=== PATIENT | female | born 1935 | race Caucasian/White ===

== ENCOUNTER → 2017-08-11 | Outpatient (CLI) | payer OTHER ==
[~2017-08-11] MED LIST: AMLO-110 PO; CALCTAB7 PO; CETI10TA10 PO; DIGO0.122 PO; FLUO20CA34 PO; FURO20TA PO; LANS30CA63 PO; LORA-741 PO; METO-551 PO; NTRGSL/4 SL; RIVA1.5T PO; TRIA3AER NAE
--- NOTE | 2017-08-11 14:27 | MAMMOGRAPHY REPORT ---
BILATERAL DIGITAL SCREENING MAMMOGRAM WITH CAD: 08/11/2017 TECHNIQUE: Current study was also evaluated with a Computer Aided Detection (CAD) system. Bilateral CC and MLO views were obtained. COMPARISON: Comparison is made to exams dated: 08/09/2016 mammogram, 08/06/2015 mammogram, 08/05/2014 mammogram, 08/02/2013 mammogram, 07/31/2012 mammogram, and 07/28/2011 mammogram - [facility]. BREAST COMPOSITION: There are scattered areas of fibroglandular density in both breasts. FINDINGS: No suspicious masses, calcifications, or areas of architectural distortion are noted in ei ther breast. There has been no significant interval change compared to prior exams. Bilateral benign -appearing calcifications are not significantly changed. Bilateral nodular asymmetries are stable co mpared to prior exams. IMPRESSION: ACR BI-RADS CATEGORY 2: BENIGN There is no mammographic evidence of malignancy. A 1 year screening mammogram is recommended. The pa tient will receive written notification of the results. Approximately 10% of breast cancers are not detected with mammography. A negative mammographic report should not delay biopsy if a clinically suggestive mass is present. Lety Hameed M.D. ah/:08/11/2017 14:10:02 [employer] D[employer] Developer: Danielle RODRÍGUEZ(Chad)(M), [facility] letter sent: Normal 1/2 BI-RADS Code: ACR BI-RADS Category 2: Benign
== END | disposition home or self-care (01) ==
LOC: C.MAMM 12:18
DX: Z12.31 Encounter for screening mammogram for malignant neoplasm of breast (principal)

== ENCOUNTER 2017-11-24 17:39 | Inpatient (IN) | payer OTHER ==
[~2017-11-24] VITALS: Ht 168.9 cm; Wt 69.6 kg
--- NOTE | 2017-11-24 18:14 | DIAGNOSTIC IMAGING REPORT ---
CHEST ONE VIEW PORTABLE CLINICAL HISTORY: EVALUATE WEAKNESS COMPARISON STUDY: Chest radiograph August 14, 2012. FINDINGS: Lung volumes are normal. Mild cardiomegaly is noted without evidence for pulmonary edema. A suspected large hiatal hernia is noted. This likely accounts for left basilar opacity. The appearance is similar to exam of August 14, 2012. There is no pneumothorax. Blunting of the left costophrenic angle is unchanged. IMPRESSION: 1. No change in appearance of the chest. 2. Large hiatal hernia which likely accounts for left basilar opacity. The appearance is similar to exam of August 14, 2012. Electronically signed by: Wenceslao Shaikh M.D. 11/24/2017 6:12 PM Dictated Date/Time: 11/24/2017 6:10 PM
[2017-11-24 19:15] LABS: BASO % 0.2 %; BASO ABS # 0.01 K/uL (0-0.2); HEMOGLOBIN 16.2 g/dL (12.0-16.0); IG# 0.01 K/uL (0.00-0.02); LYMPH % 18.6 %; LYMPH ABS # 1.01 K/uL (1.2-3.4); MEAN CELL VOLUME 93.6 fL (80-100); MEAN CORPUSCULAR HEMOGLOBIN 33.7 pg (25-34); MEAN PLATELET VOLUME 10.2 fL (7.4-10.4); MONO % 13.6 %; MONO ABS # 0.74 K/uL (0.11-0.59); NEUT % 67.4 %; NEUT ABS # 3.66 K/uL (1.4-6.5); PLATELET COUNT 147 K/uL (130-400); RED CELL DISTRIBUTION WIDTH SD 48.1 fL (36.4-46.3); WHITE BLOOD COUNT 5.43 K/uL (4.8-10.8)
--- NOTE | 2017-11-24 19:18 | DIAGNOSTIC IMAGING REPORT ---
HEAD WITHOUT CONTRAST (CT) CLINICAL HISTORY: 82 years-old Female presenting with altered mental status.. TECHNIQUE: Multidetector CT imaging of the head was performed without the use of intravenous contrast. IV contrast: None. A dose lowering technique was used consistent with the principles of ALARA (as low as reasonably achievable). COMPARISON: None. CT DOSE (mGy.cm): The estimated cumulative dose is 601.98 mGy.cm. FINDINGS: Account Assistant topogram: Unremarkable. Proportional ventricular and sulcal prominence, likely age-related parenchymal volume loss. Periventricular and subcortical white matter hypoattenuation, nonspecific but likely indicative of chronic small vessel ischemic change. Cystic encephalomalacia and gliosis in the left frontal lobe (series 2 image 13), suggesting prior infarct. Additional chronic infarct noted in the paramedian left frontal lobe (series 2 image 17). No mass effect or midline shift. No hemorrhage or acute territorial infarct. No extra-axial fluid collection. Paranasal sinuses and mastoid air cells clear. Calvarium intact. IMPRESSION: 1. Chronic small vessel ischemic change. No acute intracranial abnormality. 2. 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 Electronically signed by: Nemesio Roy M.D. 11/24/2017 7:17 PM Dictated Date/Time: 11/24/2017 7:15 PM
[2017-11-24 19:30] LABS: INR 1.2 (0.9-1.1); PTT PATIENT 31.7 SECONDS (21.0-31.0)
[2017-11-24 19:32] LABS: ALBUMIN 3.4 gm/dl (3.4-5.0); ALT/SGPT 27 U/L (12-78); AST/SGOT 25 U/L (15-37); BLOOD UREA NITROGEN 18 mg/dl (7-18); CALCIUM 8.7 mg/dl (8.5-10.1); CARBON DIOXIDE 26 mmol/L (21-32); CREATININE 0.97 mg/dl (0.60-1.20); GLUCOSE 139 mg/dl (70-99); LIPASE 123 U/L (73-393); POTASSIUM 2.8 mmol/L (3.5-5.1); SODIUM 130 mmol/L (136-145)
[2017-11-24 19:43] LABS: ALKALINE PHOSPHATASE 86 U/L (45-117); TOTAL PROTEIN 7.3 gm/dl (6.4-8.2)
[2017-11-24] MEDS ORDERED: BENZ100C84 PO (20:22)
[2017-11-24] MEDS ORDERED: DOXY100C76 PO (20:22)
[2017-11-24] MEDS ORDERED: LORAZEPAM 0.5 MG TAB PO PRN (21:30)
[2017-11-24] MEDS ORDERED: ONDANSETRON INJ 2 MG/ML 2 ML VIAL IV PRN (21:30)
[2017-11-24] MEDS ORDERED: NITROGLYCERIN 0.4 MG SL PER TAB CHARGE SL PRN ×2 (21:30)
[2017-11-24] MEDS ORDERED: ALUMINUM/MAGNESIUM/SIMETH (MAALOX MAX) 30 ML UDC PO PRN (21:30)
[2017-11-24] MEDS ORDERED: POLYETHYLENE (MIRALAX) 17 GM PACK PO PRN (21:30)
[2017-11-24] MEDS ORDERED: ZOLPIDEM TARTRATE 5 MG TAB PO PRN ×2 (21:30)
[2017-11-24] MEDS ORDERED: ACETAMINOPHEN 325 MG TAB PO PRN (21:30)
[2017-11-24] MEDS ORDERED: MAGNESIUM HYDROXIDE SUSP 30 ML UDC PO PRN (21:30)
--- NOTE | 2017-11-24 21:34 | History and Physical ---
History & Physical Date & Time of Service: Nov 24, 2017 at 20:41 Chief Complaint: Change In Mental Status Primary Care Physician: Joanne Blas History of Present Illness Source: patient, family 82F with a PMHx of Atrial Fibrillation on Xarelto p/w change in mental status x 1 day. She is accompanied by two daughters and a granddaughter that are the chief historians. Pt lives on her own and completes all ADLs on her own including driving. Per family daughter is in touch with the pt every day - today they got a call from the patient asking for help to sort medications, when daughter arrived the meds were "all mixed up". Pt has a history of a fall onto some cinders where she sustained a laceration to her left hand. Patient was able to walk into the ER on her own but per daughter she has been more wobbly. Pt was seen in [facility] a few days ago for a cough and given Doxycycline. Pt does not contribute much to the HPI. Pt wants to go home. On review of systems pt does admit to having more urinary frequency than usual. Allergies: Penicillin but does not know reaction, daughters get rash/hives. SHx: Lives by self, daughter is a nurse with [employer] at [employer] (Dr. Vila) Past Medical/Surgical History Medical Problems: (1) Atrial fibrillation (2) Heart disease (3) Hiatal hernia (4) HTN (hypertension) (5) Kidney disease (6) Stomach problems Surgical Problems: (1) H/O: hysterectomy (2) Hx of cataract surgery Family History Cancer Heart disease Hypertension Social History Smoking Status: Never Smoker Marital Status: Immunizations History of Influenza Vaccine: Yes Influenza Vaccine Date: May 15, 2012 History of Tetanus Vaccine?: No History of Pneumococcal: Yes History of Hepatitis B Vaccine: No Allergies Coded Allergies: Ampicillin (Verified Allergy, Unknown, ., 11/24/17) NUTS (Verified Allergy, Unknown, ., 11/24/17) White Fish (Unverified Allergy, Unknown, Unknown, 11/24/17) RD added 08/15/12 to alert kitchen of food allergy. Uncoded Allergies: IMITATION CHEESE (Allergy, Mild, ANAPHYLAXIS, 01/16/15) SEAFOOD (Allergy, Unknown, ., 01/16/15) Home Medications Scheduled Amlodipine (Norvasc), 5 MG PO DAILY Benzonatate (Tessalon Perles), 1-2 CAP PO Q4 Calcium Carbonate-Vitamin D W/ (Caltrate 600 Plus), 1 TAB PO DAILY Cetirizine Hcl (Zyrtec), 10 MG PO DAILY Fluoxetine Hcl (Prozac), 20 MG PO DAILY Furosemide (Lasix), 20 MG PO DAILY Lansoprazole (Prevacid), 30 MG PO DAILY Lorazepam (Ativan), 0.5 MG PO TID PRN Metoprolol Tartrate (Lopressor), 50 MG PO BID Rivaroxaban (Xarelto), 15 MG PO DAILY Scheduled PRN Nitroglycerin (Nitrostat), 0.4 MG SL UD PRN Miscellaneous Medications Doxycycline Monohydrate (Monodox), 100 MG PO Review of Systems Constitutional: No fever, No chills ENT: No hearing loss Respiratory: + cough, No sputum, No wheezing, No shortness of breath, No dyspnea on exertion, No dyspnea at rest Cardiovascular: No chest pain Abdomen: No pain, No nausea, No vomiting, No diarrhea, No constipation Genitourinary - Female: + urinary frequency, No dysuria, No urinary urgency, No urinary incontinence Neurologic: No memory loss Psychiatric: No depression symptoms Endocrine: No fatigue Integumentary: No rash Physical Exam Vital Signs Date Time Temp Pulse Resp B/P (MAP) Pulse Ox O2 Delivery O2 Flow Rate FiO2 11/24/17 19:56 92 16 146/97 95 Room Air 11/24/17 18:55 94 16 146/84 97 Room Air 11/24/17 18:55 Room Air 11/24/17 17:51 36.3 104 20 130/85 95 Room Air General Appearance: WD/WN, no apparent distress Head: normocephalic Eyes: normal inspection, PERRL, EOMI ENT: normal ENT inspection, hearing grossly normal, pharynx normal Neck: supple, no adenopathy, thyroid normal, no JVD Respiratory/Chest: chest non-tender, lungs clear, normal breath sounds, no respiratory distress, no accessory muscle use Cardiovascular: no edema, no gallop, no JVD, no murmur, normal peripheral pulses, + irregularly irregular Abdomen/GI: normal bowel sounds, non tender, soft, no organomegaly, no pulsatile mass Back: normal inspection, no CVA tenderness, no muscle spasm Extremities/Musculoskelatal: normal inspection, no calf tenderness, no pedal edema Neurologic/Psych: peoplesoft II-XII nml as tested, no motor/sensory deficits, alert, normal mood/affect, normal reflexes, + pertinent finding (pt is oriented to year , season (winter) and place (hospital), but not city. She also cannot tell me many details of her HPI. ) Skin: normal color, warm/dry, + pertinent finding (well healing lesion on 5th digit of left hand) Diagnostics Laboratory Results Results Past 24 Hours Test 11/24/17 18:00 11/24/17 18:55 Range/Units Urine Color DK YELLOW Urine Appearance CLOUDY CLEAR Urine pH 6.5 4.5-7.5 Urine Specific [place] 1.020 1.000-1.030 Urine Protein 1+ NEG Urine Glucose (UA) NEG NEG Urine Ketones 1+ NEG Urine Occult Blood NEG NEG Urine Nitrite NEG NEG Urine Bilirubin NEG NEG Urine Urobilinogen NEG NEG Urine Leukocyte Esterase NEG NEG Urine WBC (Auto) 1-5 0-5 /hpf Urine RBC (Auto) 5-10 0-4 /hpf Urine Hyaline Casts (Auto) 1-5 0-5 /lpf Urine Epithelial Cells (Auto) >30 0-5 /lpf Urine Bacteria (Auto) 1+ NEG Urine Pathogenic Casts 0 /lpf Urine Mucus PRESENT NONE PRSENT White Blood Count 5.43 4.8-10.8 K/uL Red Blood Count 4.81 4.2-5.4 M/uL Hemoglobin 16.2 12.0-16.0 g/dL Hematocrit 45.0 37-47 % Mean Corpuscular Volume 93.6 80-100 fL Mean Corpuscular Hemoglobin 33.7 25-34 pg Mean Corpuscular Hemoglobin Concent 36.0 32-36 g/dl Platelet Count 147 130-400 K/uL Mean Platelet Volume 10.2 7.4-10.4 fL Neutrophils (%) (Auto) 67.4 % Lymphocytes (%) (Auto) 18.6 % Monocytes (%) (Auto) 13.6 % Eosinophils (%) (Auto) 0.0 % Basophils (%) (Auto) 0.2 % Neutrophils # (Auto) 3.66 1.4-6.5 K/uL Lymphocytes # (Auto) 1.01 1.2-3.4 K/uL Monocytes # (Auto) 0.74 0.11-0.59 K/uL Eosinophils # (Auto) 0.00 0-0.5 K/uL Basophils # (Auto) 0.01 0-0.2 K/uL RDW Standard Deviation 48.1 36.4-46.3 fL RDW Coefficient of Variation 14.0 11.5-14.5 % Immature Granulocyte % (Auto) 0.2 % Immature Granulocyte # (Auto) 0.01 0.00-0.02 K/uL Prothrombin Time 12.7 9.0-12.0 SECONDS Prothromb Time International Ratio 1.2 0.9-1.1 Activated Partial Thromboplast Time 31.7 21.0-31.0 SECONDS Partial Thromboplastin Ratio 1.2 Sodium Level 130 136-145 mmol/L Potassium Level 2.8 3.5-5.1 mmol/L Chloride Level 93 98-107 mmol/L Carbon Dioxide Level 26 21-32 mmol/L Anion Gap 11.0 3-11 mmol/L Blood Urea Nitrogen 18 7-18 mg/dl Creatinine 0.97 0.60-1.20 mg/dl Est Creatinine Clear Calc Drug Dose 44.3 ml/min Estimated GFR () 63.5 Estimated GFR (Non- 54.8 BUN/Creatinine Ratio 18.2 10-20 Random Glucose 139 70-99 mg/dl Calcium Level 8.7 8.5-10.1 mg/dl Magnesium Level 2.1 1.8-2.4 mg/dl Total Bilirubin 1.3 0.2-1 mg/dl Direct Bilirubin 0.3 0-0.2 mg/dl Aspartate Amino Transf (AST/SGOT) 25 15-37 U/L Alanine Aminotransferase (ALT/SGPT) 27 12-78 U/L Alkaline Phosphatase 86 45-117 U/L Troponin I < 0.015 0-0.045 ng/ml Total Protein 7.3 6.4-8.2 gm/dl Albumin 3.4 3.4-5.0 gm/dl Lipase 123 73-393 U/L Thyroid Stimulating Hormone (TSH) 0.581 0.300-4.500 uIu/ml Microbiology Results 11/24/17 Urine Culture, Received Pending Diagnostic Radiology HEAD WITHOUT CONTRAST (CT) CLINICAL HISTORY: 82 years-old Female presenting with altered mental status.. TECHNIQUE: Multidetector CT imaging of the head was performed without the use of intravenous contrast. IV contrast: None. A dose lowering technique was used consistent with the principles of ALARA (as low as reasonably achievable). COMPARISON: None. CT DOSE (mGy.cm): The estimated cumulative dose is 601.98 mGy.cm. FINDINGS: Track Greaser topogram: Unremarkable. Proportional ventricular and sulcal prominence, likely age-related parenchymal volume loss. Periventricular and subcortical white matter hypoattenuation, nonspecific but likely indicative of chronic small vessel ischemic change. Cystic encephalomalacia and gliosis in the left frontal lobe (series 2 image 13), suggesting prior infarct. Additional chronic infarct noted in the paramedian left frontal lobe (series 2 image 17). No mass effect or midline shift. No hemorrhage or acute territorial infarct. No extra-axial fluid collection. Paranasal sinuses and mastoid air cells clear. Calvarium intact. IMPRESSION: 1. Chronic small vessel ischemic change. No acute intracranial abnormality. 2. 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 CHEST ONE VIEW PORTABLE CLINICAL HISTORY: EVALUATE WEAKNESS COMPARISON STUDY: Chest radiograph August 14, 2012. FINDINGS: Lung volumes are normal. Mild cardiomegaly is noted without evidence for pulmonary edema. A suspected large hiatal hernia is noted. This likely accounts for left basilar opacity. The appearance is similar to exam of August 14, 2012. There is no pneumothorax. Blunting of the left costophrenic angle is unchanged. IMPRESSION: 1. No change in appearance of the chest. 2. Large hiatal hernia which likely accounts for left basilar opacity. The appearance is similar to exam of August 14, 2012. EKG Atrial fibrillation with a rate of 96. Incomplete right bundle branch block Left anterior fascicular block Nonspecific ST abnormality Abnormal ECG When compared with ECG of 16-AUG-2012 06:25, QRS axis Shifted left Impression Assessment and Plan 82F with a PMHx of Atrial Fibrillation on Xarelto p/w change in mental status x 1 day. DDx include CVA vs UTI. Can assume she missed her evening medications. AMS 2/2 of CVA vs UTI vs Electrolytes vs Dementia I did not appreciate any neurological deficits on exam, and lungs were CTA. She does appear to have moderate to severe dementia at baseline per daughters this makes it difficult to assess her baseline. CT Reviewed and negative. Will get MRI Head. Dopplers of the carotids. Will also get an echocardiogram Will get social studies teacher on board. Hypokalemia (2.8) Pt is on Lasix every day but not potassium, recommend potassium supplement on discharge. Given 40meq IV over 4 hours and will give 20meq BID PO for repletion. Continue to monitor. UTI c/o urinary frequency, UA likely contaminate, will send for culture. Will start Rocephin IV daily. Day #1. Atrial Fibrillation Continue home meds, likely missed day and/or evening dose of Metoprolol. c/w Lopressor 50 MG PO BID c/w Xarelto 15 MG PO DAILY Echo as above. HTN c/w Amlodipine 5mg daily. c/w Lasix 20mg PO daily (not sure if Lasix is for HTN - defer to day team). Mood c/w Prozac Insomnia 0.5mg Ativan QHS (she takes it at home regularly) Home Meds c/w Cetirizine 10mg daily. Diet: NPO except meds and IVF at 50mls/hr. --> If tests negative resume diet. Dispo: WIll likely need services, PT and OT on board. FULL CODE Resuscitation Status VTE Prophylaxis Will order VTE Prophylaxis: Yes Resident Involvement: Resident Care Provided Care Provided: Adult Hospital Medicine
[2017-11-24] MEDS ORDERED: POTASSIUM CHLORIDE 20 MEQ/15 ML UDC PO STA (21:46)
[2017-11-24] MEDS ORDERED: POTASSIUM CHLR 20 MEQ / WTR 40 MEQ in PREMIXED WATER 100 ML IV STA (21:46)
[2017-11-24] MEDS ORDERED: POTASSIUM CHLORIDE 20 MEQ/15 ML UDC ONE (22:13)
[2017-11-24] MEDS ORDERED: LORAZEPAM 2 MG/ML 1 ML VIAL IV STA (22:20)
[2017-11-25] VITALS (8 sets, daily range): BP systolic 121–148; BP diastolic 69–88; PULSE 74–105; TEMP 36.6–37.1; O2SAT 91–97; Ht 168.9 cm; Wt 69.6 kg
[2017-11-25] MEDS: SODIUM CHLORIDE 0.9% 1000ML 1,000 ML IV SCH ×2 (00:26→20:49)
[2017-11-25] MEDS ORDERED: IV FLUIDS COMPLETED PRN (00:30)
[2017-11-25] MEDS: POTASSIUM CHLR 10 MEQ / WTR 10 MEQ in PREMIXED WATER 100 ML IV SCH ×8 (01:02→14:40)
--- NOTE | 2017-11-25 01:30 | EMERGENCY ROOM VISIT NOTE ---
History Report prepared by Mayda: Diana Ureña Under the Supervision of: Dr. Abilio Corey M.D. First contact with patient: 17:56 Chief Complaint: ALTERED MENTAL STATUS Stated Complaint: CHANGE IN MENTAL STATUS History of Present Illness The patient is an 82 year old female who presents to the Emergency Room with complaints of sudden altered mental status starting today. The patient's daughter states that she has had progressive deterioration, but this is much more than normal. She states that the patient called her to have her daughter come help her with her medications because she was confused. She reports that when she arrived, the patient was out of it. She states that she did not know the date or what was going on. The patient's daughter states that the patient doesn't know what she ate today and that is unusual for her. She notes that her mother has had tremors for some time that were minor, but much more notable tonight. The daughter notes that the [place]y. She states that it was unwitnessed , but doesn't believe that she hit her head. She reports that her pinky was cleaned and steri stripped before being sent home. She states that her mother got her Tetanus at this time. The daughter also notes that the patient went to her PCP this week for a cough that started out as nausea. She reports that her mother was only eating liquids. She states that they started her on Doxycycline and Tessalon Perles. She notes that she takes Eliquis for an irregular heartbeat. Pt denies LOC, headache, fevers, chills, diaphoresis, visual changes, neck pain , chest pain, breathing difficulties, nausea, vomiting, abdominal pain, back pain, melena, hematochezia, urinary symptoms, numbness, weakness, lymphadenopathy, rash, difficulties walking, or other complaints. Source of History: patient, family Onset: today Position: other (global) Quality: other (altered mental status) Timing: other (sudden) Note: The patient's daughter complains of the patient having tremors. Review of Systems See HPI for pertinent positives and negatives. A total of ten systems were reviewed and were otherwise negative. Past Medical & Surgical Medical Problems: (1) Altered mental status (2) Atrial fibrillation (3) Heart disease (4) Hiatal hernia (5) HTN (hypertension) (6) Kidney disease (7) Stomach problems Surgical Problems: (1) H/O: hysterectomy (2) Hx of cataract surgery Family History Cancer Heart disease Hypertension Social History Smoking Status: Never Smoker Smokeless Tobacco Use: No Alcohol Use: occasionally Marital Status: Occupation Status: retired Current/Historical Medications Scheduled Amlodipine (Norvasc), 5 MG PO DAILY Benzonatate (Tessalon Perles), 1-2 CAP PO Q4 Calcium Carbonate-Vitamin D W/ (Caltrate 600 Plus), 1 TAB PO DAILY Cetirizine Hcl (Zyrtec), 10 MG PO DAILY Fluoxetine Hcl (Prozac), 20 MG PO DAILY Furosemide (Lasix), 20 MG PO DAILY Lansoprazole (Prevacid), 30 MG PO DAILY Lorazepam (Ativan), 0.5 MG PO TID PRN Metoprolol Tartrate (Lopressor), 50 MG PO BID Rivaroxaban (Xarelto), 15 MG PO DAILY Scheduled PRN Nitroglycerin (Nitrostat), 0.4 MG SL UD PRN Miscellaneous Medications Doxycycline Monohydrate (Monodox), 100 MG PO Allergies Coded Allergies: Ampicillin (Verified Allergy, Unknown, ., 11/24/17) NUTS (Verified Allergy, Unknown, ., 11/24/17) White Fish (Unverified Allergy, Unknown, Unknown, 11/24/17) RD added 08/15/12 to alert kitchen of food allergy. Uncoded Allergies: IMITATION CHEESE (Allergy, Mild, ANAPHYLAXIS, 01/16/15) SEAFOOD (Allergy, Unknown, ., 01/16/15) Physical Exam Vital Signs Date Time Temp Pulse Resp B/P (MAP) Pulse Ox O2 Delivery O2 Flow Rate FiO2 11/24/17 19:56 92 16 146/97 95 Room Air 11/24/17 18:55 94 16 146/84 97 Room Air 11/24/17 18:55 Room Air 11/24/17 17:51 36.3 104 20 130/85 95 Room Air Physical Exam GENERAL: Awake, alert, well-appearing, in no distress HENT: Normocephalic, atraumatic. Oropharynx unremarkable. EYES: Normal conjunctiva. Sclera non-icteric. NECK: Supple. No nuchal rigidity. FROM. No masses. RESPIRATORY: Clear to auscultation. No wheezes. No rales. Normal respiratory effort. CARDIAC: Normal rate. Normal rhythm. No murmurs. No rubs. Extremities warm and well perfused. Pulses equal. No JVD. GI: Soft, non-distended. No tenderness to palpation. No rebound or guarding. No masses. RECTAL: Deferred. MUSCULOSKELETAL: Atraumatic. Chest examination reveals no tenderness. The back is symmetrical on inspection without obvious abnormality. There is no CVA tenderness to palpation. No joint edema. LOWER EXTREMITIES: Calves are equal size bilaterally and non-tender. No edema. No discoloration. NEURO: Altered sensorium. Oriented to person only. No sensory or motor deficits noted. SKIN: No rash or jaundice noted. Medical Decision & Procedures ER Provider Diagnostic Interpretation: Radiology results as stated below per my review and radiologist interpretation: HEAD WITHOUT CONTRAST (CT) CLINICAL HISTORY: 82 years-old Female presenting with altered mental status.. TECHNIQUE: Multidetector CT imaging of the head was performed without the use of intravenous contrast. IV contrast: None. A dose lowering technique was used consistent with the principles of ALARA (as low as reasonably achievable). COMPARISON: None. CT DOSE (mGy.cm): The estimated cumulative dose is 601.98 mGy.cm. FINDINGS: [place] topogram: Unremarkable. Proportional ventricular and sulcal prominence, likely age-related parenchymal volume loss. Periventricular and subcortical white matter hypoattenuation, nonspecific but likely indicative of chronic small vessel ischemic change. Cystic encephalomalacia and gliosis in the left frontal lobe (series 2 image 13), suggesting prior infarct. Additional chronic infarct noted in the paramedian left frontal lobe (series 2 image 17). No mass effect or midline shift. No hemorrhage or acute territorial infarct. No extra-axial fluid collection. Paranasal sinuses and mastoid air cells clear. Calvarium intact. IMPRESSION: 1. Chronic small vessel ischemic change. No acute intracranial abnormality. 2. 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 Electronically signed by: Nemesio Roy M.D. 11/24/2017 7:17 PM Dictated Date/Time: 11/24/2017 7:15 PM CHEST ONE VIEW PORTABLE CLINICAL HISTORY: EVALUATE WEAKNESS COMPARISON STUDY: Chest radiograph August 14, 2012. FINDINGS: Lung volumes are normal. Mild cardiomegaly is noted without evidence for pulmonary edema. A suspected large hiatal hernia is noted. This likely accounts for left basilar opacity. The appearance is similar to exam of August 14, 2012. There is no pneumothorax. Blunting of the left costophrenic angle is unchanged. IMPRESSION: 1. No change in appearance of the chest. 2. Large hiatal hernia which likely accounts for left basilar opacity. The appearance is similar to exam of August 14, 2012. Electronically signed by: Wenceslao Shaikh M.D. 11/24/2017 6:12 PM Dictated Date/Time: 11/24/2017 6:10 PM Laboratory Results 11/24/17 18:55 Red Blood Count 4.81, Mean Corpuscular Volume 93.6, Mean Corpuscular Hemoglobin 33.7, Mean Corpuscular Hemoglobin Concent 36.0, Mean Platelet Volume 10.2, Neutrophils (%) (Auto) 67.4, Lymphocytes (%) (Auto) 18.6, Monocytes (%) (Auto) 13.6, Eosinophils (%) (Auto) 0.0, Basophils (%) (Auto) 0.2, Neutrophils # (Auto ) 3.66, Lymphocytes # (Auto) 1.01, Monocytes # (Auto) 0.74, Eosinophils # (Auto ) 0.00, Basophils # (Auto) 0.01 11/24/17 18:55 Test 11/24/17 18:00 11/24/17 18:55 Urine Color DK YELLOW Urine Appearance CLOUDY (CLEAR) Urine pH 6.5 (4.5-7.5) Urine Specific [place] 1.020 (1.000-1.030) Urine Protein 1+ (NEG) Urine Glucose (UA) NEG (NEG) Urine Ketones 1+ (NEG) Urine Occult Blood NEG (NEG) Urine Nitrite NEG (NEG) Urine Bilirubin NEG (NEG) Urine Urobilinogen NEG (NEG) Urine Leukocyte Esterase NEG (NEG) Urine WBC (Auto) 1-5 /hpf (0-5) Urine RBC (Auto) 5-10 /hpf (0-4) Urine Hyaline Casts (Auto) 1-5 /lpf (0-5) Urine Epithelial Cells (Auto) >30 /lpf (0-5) Urine Bacteria (Auto) 1+ (NEG) Urine Pathogenic Casts /lpf (0) Urine Mucus PRESENT (NONE PRSENT) White Blood Count 5.43 K/uL (4.8-10.8) Red Blood Count 4.81 M/uL (4.2-5.4) Hemoglobin 16.2 g/dL (12.0-16.0) Hematocrit 45.0 % (37-47) Mean Corpuscular Volume 93.6 fL (80-100) Mean Corpuscular Hemoglobin 33.7 pg (25-34) Mean Corpuscular Hemoglobin Concent 36.0 g/dl (32-36) Platelet Count 147 K/uL (130-400) Mean Platelet Volume 10.2 fL (7.4-10.4) Neutrophils (%) (Auto) 67.4 % Lymphocytes (%) (Auto) 18.6 % Monocytes (%) (Auto) 13.6 % Eosinophils (%) (Auto) 0.0 % Basophils (%) (Auto) 0.2 % Neutrophils # (Auto) 3.66 K/uL (1.4-6.5) Lymphocytes # (Auto) 1.01 K/uL (1.2-3.4) Monocytes # (Auto) 0.74 K/uL (0.11-0.59) Eosinophils # (Auto) 0.00 K/uL (0-0.5) Basophils # (Auto) 0.01 K/uL (0-0.2) RDW Standard Deviation 48.1 fL (36.4-46.3) RDW Coefficient of Variation 14.0 % (11.5-14.5) Immature Granulocyte % (Auto) 0.2 % Immature Granulocyte # (Auto) 0.01 K/uL (0.00-0.02) Prothrombin Time 12.7 SECONDS (9.0-12.0) Prothromb Time International Ratio 1.2 (0.9-1.1) Activated Partial Thromboplast Time 31.7 SECONDS (21.0-31.0) Partial Thromboplastin Ratio 1.2 Anion Gap 11.0 mmol/L (3-11) Est Creatinine Clear Calc Drug Dose 44.3 ml/min Estimated GFR () 63.5 Estimated GFR (Non- 54.8 BUN/Creatinine Ratio 18.2 (10-20) Calcium Level 8.7 mg/dl (8.5-10.1) Magnesium Level 2.1 mg/dl (1.8-2.4) Total Bilirubin 1.3 mg/dl (0.2-1) Direct Bilirubin 0.3 mg/dl (0-0.2) Aspartate Amino Transf (AST/SGOT) 25 U/L (15-37) Alanine Aminotransferase (ALT/SGPT) 27 U/L (12-78) Alkaline Phosphatase 86 U/L (45-117) Troponin I < 0.015 ng/ml (0-0.045) Total Protein 7.3 gm/dl (6.4-8.2) Albumin 3.4 gm/dl (3.4-5.0) Lipase 123 U/L (73-393) Thyroid Stimulating Hormone (TSH) 0.581 uIu/ml (0.300-4.500) Laboratory results reviewed by me Medications Administered Medications (Trade) Dose Ordered Sig/Rebeka Route Start Time Stop Time Status Last Admin Dose Admin Sodium Chloride 1,000 ml @ 50 mls/hr Q20H IV 11/24/17 21:23 11/26/17 13:22 11/25/17 00:26 50 MLS/HR Lorazepam (Ativan Tab) 0.5 mg BID PRN PO 11/24/17 21:30 12/24/17 21:29 11/24/17 22:16 0.5 MG ECG Per My Interpretation Indication: altered mental status Rate (beats per minute): 96 Rhythm: atrial fibrillation Findings: nonspecific-ST abn (Inferior), RBBB (incomplete), no ectopy, other ( left anterior vesicular block) ED Course 1815: The patient was evaluated in room C3. A complete history and physical exam was performed. 1922: I reevaluated the patient and she is stable. 1928: Discussed the patient's case with Dr. Sho[place] [place] The patient will be evaluated for further treatment and disposition. Medical Decision Prior records/ancillary studies reviewed and summarized above. Nursing notes reviewed and agree them. Additional history obtained from the daughter. The patient's history was concerning for altered mental status. Differential diagnosis: Etiologies such as infection, hypoglycemia, electrolyte abnormalities, cardiac sources, intracerebral event, toxicologic, neurologic, as well as others were entertained. Physical examination: As above. Nonfocal. The patient was oriented to person only ER treatment provided: IV Lock Normal saline hydration On reassessment the patient felt better. Diagnostics interpretation by me: ECG: As above no acute change. The labs revealed an unremarkable CBC and chemistry panel. Urinalysis without clear signs of infection. Imaging studies: Chest x-ray and CT scan as above. The patient is disoriented. Her diagnostic testing is unremarkable at this time. I discussed further management in the hospital and patient and daughter were in agreement. Consultation: A consultation was placed with the hospitalist. The case was discussed and diagnostics were reviewed. The patient was evaluated in the ER for further treatment. Medication Reconcilliation Current Medication List: was personally reviewed by me Blood Pressure Screening Patient's blood pressure: Elevated blood pressure Will be further evaluated by the hospitalist. Consults Time Called: 1922 Consulting Physician: Dr. Navid WOLFE Hospitalist Returned Call: 1928 Discussed the patient's case with Dr. Navid WOLFE Hospitalist. The patient will be evaluated for further treatment and disposition. Impression Primary Impression: Altered mental status Scribe Attestation The scribe's documentation has been prepared under my direction and personally reviewed by me in its entirety. I confirm that the note above accurately reflects all work, treatment, procedures, and medical decision making performed by me. Departure Information Dispostion Being Evaluated By Hospitalist Referrals Joanne Blas (PCP) Patient Instructions My [facility]
[2017-11-25] MEDS: CEFTRIAXONE SOD INJ 1 GM in DEXTROSE 5% ADD-VANTAGE 50ML 50 ML IV SCH (03:37)
--- NOTE | 2017-11-25 06:36 | DIAGNOSTIC IMAGING REPORT ---
BRAIN WITHOUT CONTRAST HISTORY: Mental status change AMS TECHNIQUE: Multiplanar multisequence MRI of the brain was performed without the use of contrast. COMPARISON STUDY: None. FINDINGS: Findings of generalized cerebellar as well as cerebral atrophy. Considerable chronic small vessel change bilaterally. Diffusion-weighted images are considered negative for an acute ischemic process. 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 IMPRESSION: 1. No acute intracranial ischemic focus. 2. Considerable cerebellar as well as cerebral atrophy. 3. Considerable chronic small vessel change involving both cerebral hemispheres as well as the cerebellar hemispheres. The above report was generated using voice recognition software. It may contain grammatical, syntax or spelling errors. Electronically signed by: Vinay Ferguson M.D. 11/25/2017 6:35 AM Dictated Date/Time: 11/25/2017 6:32 AM
--- NOTE | 2017-11-25 06:38 | DIAGNOSTIC IMAGING REPORT ---
CAROTID DOPPLER NECK ART HISTORY: Mental status change AMS COMPARISON: None. TECHNIQUE: Real-time, grayscale, and color Doppler sonography of the carotid arteries was performed. Imaging reviewed in the transverse and longitudinal planes. All measurements were calculated based on NASCET criteria. FINDINGS: Antegrade flow is seen in the bilateral vertebral arteries. The brachial pressures are hemodynamically similar. Minimal plaque formation bilaterally The peak systolic velocity within the right ICA is 50. The right systolic ratio is 1.2. The peak systolic velocity within the left ICA is 52. The left systolic ratio is 0.8. IMPRESSION: No hemodynamically significant stenosis seen within the carotid arteries. The above report was generated using voice recognition software. It may contain grammatical, syntax or spelling errors. Electronically signed by: Vinay Ferguson M.D. 11/25/2017 6:37 AM Dictated Date/Time: 11/25/2017 6:36 AM
[2017-11-25 08:13] LABS: BASO % 0.2 %; BASO ABS # 0.01 K/uL (0-0.2); HEMATOCRIT 42.4 % (37-47); IG# 0.01 K/uL (0.00-0.02); LYMPH % 27.6 %; LYMPH ABS # 1.11 K/uL (1.2-3.4); MEAN CELL VOLUME 93.6 fL (80-100); MEAN CORPUSCULAR HEMOGLOBIN 33.1 pg (25-34); MEAN CORPUSCULAR HGB CONC 35.4 g/dl (32-36); MEAN PLATELET VOLUME 10.4 fL (7.4-10.4); MONO % 20.9 %; MONO ABS # 0.84 K/uL (0.11-0.59); NEUT % 51.1 %; NEUT ABS # 2.05 K/uL (1.4-6.5); PLATELET COUNT 136 K/uL (130-400); RED CELL DISTRIBUTION WIDTH CV 13.8 % (11.5-14.5); WHITE BLOOD COUNT 4.02 K/uL (4.8-10.8)
[2017-11-25 08:31] LABS: CALCIUM 8.2 mg/dl (8.5-10.1); CREATININE 0.7 mg/dl (0.60-1.20); POTASSIUM 3.1 mmol/L (3.5-5.1)
[2017-11-25] MEDS: CALCIUM 600MG + VIT D 400 IU TAB PO SCH (08:51)
[2017-11-25] MEDS: POTASSIUM CHLORIDE 20 MEQ/15 ML UDC PO SCH ×2 (08:52→20:48)
[2017-11-25] MEDS: AMLODIPINE BESYLATE 5 MG TAB PO SCH (08:52)
[2017-11-25] MEDS: METOPROLOL TARTRATE 50 MG TAB PO SCH ×2 (08:52→20:48)
[2017-11-25] MEDS: FUROSEMIDE 20 MG TAB PO SCH (08:52)
[2017-11-25] MEDS: FLUOXETINE HCL 20 MG CAP PO SCH (08:53)
[2017-11-25] MEDS: CETIRIZINE HCL 10 MG TAB PO SCH (08:53)
[2017-11-25] MEDS: PANTOprazole SOD 40 MG TAB PO SCH (08:53)
--- NOTE | 2017-11-25 09:13 | Family Medicine Progress Note ---
Progress Note Date of Service Nov 25, 2017. Subjective Pt evaluation today including: conversation w/ patient, conversation w/ family (daughters, granddaughter) Found patient resting comfortably in bed. Wakes quickly and easily when I called her name. She volunteers no information. When asked, she knows her name , , that she is in the "hospital" but not which one. Does not know her age, location, why she is here, or other answers to basic questions. Spoke with patient's daughters and granddaughter this afternoon. They state her current mental status is very different from her baseline of being able to perform independent ADL's. 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 They say that the patient has had some mild mental decline over the past few months (perhaps) but it has not impacted her daily living. However, around this past TuesdayMar she developed a cough and some mild nausea. She was apparently seen in an urgent care and placed on doxycycline, with perhaps two days of treatment thus far. They also mention that the patient normally drinks two glasses of wine with dinner nightly, but this likely stopped in the past week due to not feeling well. Her mental status has reportedly been a little worse during this week, but it acutely worsened in the 24 hour prior to admission, and this afternoon seems even worse than ever. They do not note any focal neuro deficits, though, on their appreciation of her condition with the exception of her inability to answer questions (more of a recall question than verbal aphasia). Additional Comments: Unable to obtain due to current mental status. Medications Current Inpatient Medications Medications (Trade) Dose Ordered Sig/Rebeka Route Start Time Stop Time Status Last Admin Dose Admin Sodium Chloride 1,000 ml @ 50 mls/hr Q20H IV 11/24/17 21:23 11/26/17 13:22 11/25/17 00:26 50 MLS/HR Acetaminophen (Tylenol Tab) 650 mg Q4H PRN PO 11/24/17 21:30 12/24/17 21:29 Al Hydrox/Mg Hydrox/Simethicone (Maalox Max Susp) 15 ml Q4H PRN PO 11/24/17 21:30 12/24/17 21:29 Magnesium Hydroxide (Milk Of Magnesia Susp) 30 ml Q12H PRN PO 11/24/17 21:30 12/24/17 21:29 Zolpidem Tartrate (Ambien Tab) 5 mg HSZ PRN PO 11/24/17 21:30 12/24/17 21:29 Ondansetron HCl (Zofran Inj) 4 mg Q6H PRN IV 11/24/17 21:30 12/24/17 21:29 Nitroglycerin (Nitrostat Tab) 0.4 mg UD PRN SL 11/24/17 21:30 12/24/17 21:29 Polyethylene (Miralax Powder Packet) 17 gm DAILY PRN PO 11/24/17 21:30 12/24/17 21:29 Amlodipine Besylate (Norvasc Tab) 5 mg DAILY PO 11/25/17 09:00 12/25/17 08:59 11/25/17 08:52 5 MG Calcium/Vitamin D (Caltrate Plus Tab) 1 tab DAILY PO 11/25/17 09:00 12/25/17 08:59 11/25/17 08:51 1 TAB Cetirizine HCl (zyrTEC TAB) 10 mg DAILY PO 11/25/17 09:00 12/25/17 08:59 11/25/17 08:53 10 MG Fluoxetine HCl (Prozac Cap) 20 mg DAILY PO 11/25/17 09:00 12/25/17 08:59 11/25/17 08:53 20 MG Furosemide (Lasix Tab) 20 mg DAILY PO 11/25/17 09:00 12/25/17 08:59 11/25/17 08:52 20 MG Lorazepam (Ativan Tab) 0.5 mg BID PRN PO 11/24/17 21:30 12/24/17 21:29 11/24/17 22:16 0.5 MG Metoprolol Tartrate (Lopressor Tab) 50 mg BID PO 11/25/17 09:00 12/25/17 08:59 11/25/17 08:52 50 MG Rivaroxaban (Xarelto Tab) 15 mg QDD PO 11/25/17 16:45 12/25/17 17:59 Pantoprazole Sodium (Protonix Tab) 40 mg DAILY PO 11/25/17 09:00 12/25/17 08:59 11/25/17 08:53 40 MG Ceftriaxone Sodium 1 gm/ Dextrose 50 ml @ 100 mls/hr Q24H IV 11/25/17 01:00 12/05/17 00:59 11/25/17 03:37 100 MLS/HR Potassium Chloride (Callie Ciel Elix) 20 meq BID PO 11/25/17 09:00 12/25/17 08:59 11/25/17 08:52 20 MEQ Miscellaneous (Iv Fluids Completed) 1 ea PRN PRN N/A 11/25/17 00:30 11/25/18 00:29 Potassium Chloride 10 meq/ Prmx 100 ml @ 100 mls/hr Q1H IV 11/25/17 09:00 11/25/17 12:59 UNV Objective Vital Signs Date Time Temp Pulse Resp B/P (MAP) Pulse Ox O2 Delivery O2 Flow Rate FiO2 11/25/17 08:28 36.9 74 18 139/74 (95) 97 11/25/17 04:00 93 Room Air 11/25/17 03:46 37.1 101 18 148/84 (105) 93 Room Air 11/25/17 00:14 36.8 103 18 148/78 94 Room Air 11/24/17 22:44 95 16 127/99 97 11/24/17 22:40 95 16 127/99 97 Room Air 11/24/17 22:04 92 18 132/91 97 Room Air 11/24/17 19:56 92 16 146/97 95 Room Air 11/24/17 18:55 94 16 146/84 97 Room Air 11/24/17 18:55 Room Air 11/24/17 17:51 36.3 104 20 130/85 95 Room Air Physical Exam Notes: General Appearance: Awake, oriented to name + + "hospital" but nothing further, appears comfortable in general, in NAD. CV: +S1S2 irregularly irregular, no murmur. Pulm: Clear to auscultation throughout. Abdomen: +BS, soft, non-tender, non-distended. Extremities: No pedal edema or calf tenderness. Pulls herself up in bed at times. Neuro: Moving all extremities. Skin: Healing left fifth digit lesion. Lines: PIV. Laboratory Results 11/25/17 07:54 Red Blood Count 4.53, Mean Corpuscular Volume 93.6, Mean Corpuscular Hemoglobin 33.1, Mean Corpuscular Hemoglobin Concent 35.4, Mean Platelet Volume 10.4, Neutrophils (%) (Auto) 51.1, Lymphocytes (%) (Auto) 27.6, Monocytes (%) (Auto) 20.9, Eosinophils (%) (Auto) 0.0, Basophils (%) (Auto) 0.2, Neutrophils # (Auto ) 2.05, Lymphocytes # (Auto) 1.11, Monocytes # (Auto) 0.84, Eosinophils # (Auto ) 0.00, Basophils # (Auto) 0.01 11/25/17 07:54 Test 11/24/17 18:00 11/24/17 18:55 11/25/17 07:54 Urine Color DK YELLOW Urine Appearance CLOUDY (CLEAR) Urine pH 6.5 (4.5-7.5) Urine Specific [place] 1.020 (1.000-1.030) Urine Protein 1+ (NEG) Urine Glucose (UA) NEG (NEG) Urine Ketones 1+ (NEG) Urine Occult Blood NEG (NEG) Urine Nitrite NEG (NEG) Urine Bilirubin NEG (NEG) Urine Urobilinogen NEG (NEG) Urine Leukocyte Esterase NEG (NEG) Urine WBC (Auto) 1-5 /hpf (0-5) Urine RBC (Auto) 5-10 /hpf (0-4) Urine Hyaline Casts (Auto) 1-5 /lpf (0-5) Urine Epithelial Cells (Auto) >30 /lpf (0-5) Urine Bacteria (Auto) 1+ (NEG) Urine Pathogenic Casts /lpf (0) Urine Mucus PRESENT (NONE PRSENT) Prothrombin Time 12.7 SECONDS (9.0-12.0) Prothromb Time International Ratio 1.2 (0.9-1.1) Activated Partial Thromboplast Time 31.7 SECONDS (21.0-31.0) Partial Thromboplastin Ratio 1.2 Total Bilirubin 1.3 mg/dl (0.2-1) Direct Bilirubin 0.3 mg/dl (0-0.2) Aspartate Amino Transf (AST/SGOT) 25 U/L (15-37) Alanine Aminotransferase (ALT/SGPT) 27 U/L (12-78) Alkaline Phosphatase 86 U/L (45-117) Troponin I < 0.015 ng/ml (0-0.045) Total Protein 7.3 gm/dl (6.4-8.2) Albumin 3.4 gm/dl (3.4-5.0) Lipase 123 U/L (73-393) Thyroid Stimulating Hormone (TSH) 0.581 uIu/ml (0.300-4.500) White Blood Count 4.02 K/uL (4.8-10.8) Red Blood Count 4.53 M/uL (4.2-5.4) Hemoglobin 15.0 g/dL (12.0-16.0) Hematocrit 42.4 % (37-47) Mean Corpuscular Volume 93.6 fL (80-100) Mean Corpuscular Hemoglobin 33.1 pg (25-34) Mean Corpuscular Hemoglobin Concent 35.4 g/dl (32-36) Platelet Count 136 K/uL (130-400) Mean Platelet Volume 10.4 fL (7.4-10.4) Neutrophils (%) (Auto) 51.1 % Lymphocytes (%) (Auto) 27.6 % Monocytes (%) (Auto) 20.9 % Eosinophils (%) (Auto) 0.0 % Basophils (%) (Auto) 0.2 % Neutrophils # (Auto) 2.05 K/uL (1.4-6.5) Lymphocytes # (Auto) 1.11 K/uL (1.2-3.4) Monocytes # (Auto) 0.84 K/uL (0.11-0.59) Eosinophils # (Auto) 0.00 K/uL (0-0.5) Basophils # (Auto) 0.01 K/uL (0-0.2) RDW Standard Deviation 48.0 fL (36.4-46.3) RDW Coefficient of Variation 13.8 % (11.5-14.5) Immature Granulocyte % (Auto) 0.2 % Immature Granulocyte # (Auto) 0.01 K/uL (0.00-0.02) Anion Gap 7.0 mmol/L (3-11) Est Creatinine Clear Calc Drug Dose 60.1 ml/min Estimated GFR () 94.2 Estimated GFR (Non- 81.3 BUN/Creatinine Ratio 19.3 (10-20) Calcium Level 8.2 mg/dl (8.5-10.1) Magnesium Level 2.1 mg/dl (1.8-2.4) Assessment and Plan 82 yo female admitted on [id number] due to concerns by family members for altered mental status. PMH: Afib, HTN, "heart disease", "kidney disease", "stomach problems", hiatal hernia, s/p hysterectomy and cataract surgery. Concern for altered mental status: See discussion in HPI and subjective today. Patient does not contribute to HPI or history this morning or this afternoon. No evidence of overt focal neuro deficits on exam. There is a very fine right hand tremor that daughters say is not new. CT head and MRI brain showed multiple chronic findings, nothing acute, but of unknown duration. Carotid Doppler exam was unremarkable. EKG notable for (known) afib, incomplete RBBB and left AFB but without acute ST changes. TnI negative. She does have a dry cough in the room and a report of recently being on doxycycline for perhaps two doses. Here normal room SpO2, clear lungs on auscultation, and pCXR did not suggest acute pulmonary disease. Thus are not treating for CAP at this time. Afebrile and non-tender on abdominal exam. See "Urinalysis findings" discussion below. TSH normal. Exact nature of her suspected AMS is unclear, though perhaps the patient missed some of her scheduled medications. - Echocardiogram pending today. - Will add ammonia level and lyme for morning labs. - PT/OT consulted for expert opinion on need for acute rehab. Urinalysis findings: Question of recent urinary frequency. UA negative for WBCs but a couple RBCs and lots of epithelial cells. 1+ bacteria as well. 29Mar UCx sent. 30Mar started empirically on ceftriaxone 1 gram IV q24h. Hypokalemia: Here K 2.8. Repleted. Is on home daily lasix. Here started on KCl 20 mEq PO BID. Monitoring. - May benefit from ongoing KCl supplementation at home. Atrial fibrillation: History of same, noted on admission as well. On home lopressor 50 BID and xarelto 15 daily. Patient may have recently missed a dose. - Echocardiogram pending today. HTN: On home amlodipine 5 mg daily and lasix 20 mg daily. Depression: On home prozac 20 daily. Insomnia: On scheduled ativan 0.5 mg PO q HS as well as prn anxiety/agitation. Allergies: On home cetirizine 10 mg daily. Code status: Full code. Diet: AHA. DVT prophy: Xarelto. PT/OT: Pending evaluation. Disbo: Admit to med/surg. Resident Physician Supervision Note: I was present with Dr. Kong during the history and exam. I discussed the case with the resident and agree with the findings and plan as documented in the note. Any exceptions or clarifications are listed here: 82 y/o female admitted with mental status change in the setting of what is described as a mild URI for which she was recently started on doxycycline. The family reports that she has a history of mild dementia, but independent in terms of ADLs. Imaging (MRI and CT) show rather advanced small vessel disease and atrophy, as well as old infarcts which sounds as if the family was not aware of (no prior neuro imaging here at [facility]). Acute on chronic (mental status change on what sounds to be a more advanced dementia than realized), although unsure what the inciting event was leading to the acute change. Agree with empiric antibiotic pending cultures; she has no fever nor does she complain of a headache. Will check ammonia level and Lyme, but not highly suspicious of either being the culprit. Documented By: Vick Gramajo Resident Tracking Resident Involvement: Resident Care Provided Care Provided: Adult Hospital Medicine (inpatient)
[2017-11-25] MEDS: RIVAROXABAN TAB 15 MG TAB PO SCH (16:51)
[2017-11-25] MEDS ORDERED: LORAZEPAM 2 MG/ML 1 ML VIAL IV SCH (21:00)
[2017-11-26] MEDS: CEFTRIAXONE SOD INJ 1 GM in DEXTROSE 5% ADD-VANTAGE 50ML 50 ML IV SCH (01:14)
[2017-11-26 03:31] VITALS: BP 123/77; PULSE 98; TEMP 36.9; O2SAT 91
[2017-11-26 07:04] LABS: BASO % 0.5 %; BASO ABS # 0.03 K/uL (0-0.2); HEMATOCRIT 43.9 % (37-47); HEMOGLOBIN 15.4 g/dL (12.0-16.0); IG# 0.01 K/uL (0.00-0.02); LYMPH % 28.2 %; LYMPH ABS # 1.54 K/uL (1.2-3.4); MEAN CELL VOLUME 94.2 fL (80-100); MEAN CORPUSCULAR HGB CONC 35.1 g/dl (32-36); MEAN PLATELET VOLUME 9.9 fL (7.4-10.4); MONO ABS # 0.93 K/uL (0.11-0.59); NEUT % 54.1 %; NEUT ABS # 2.95 K/uL (1.4-6.5); PLATELET COUNT 143 K/uL (130-400); RED CELL DISTRIBUTION WIDTH SD 48.3 fL (36.4-46.3); WHITE BLOOD COUNT 5.46 K/uL (4.8-10.8)
[2017-11-26] MEDS: CALCIUM 600MG + VIT D 400 IU TAB PO SCH (07:31)
[2017-11-26] MEDS: METOPROLOL TARTRATE 50 MG TAB PO SCH ×2 (07:32→20:59)
[2017-11-26] MEDS: POTASSIUM CHLORIDE 20 MEQ/15 ML UDC PO SCH ×2 (07:32→20:58)
[2017-11-26] MEDS: PANTOprazole SOD 40 MG TAB PO SCH (07:32)
[2017-11-26] MEDS: FUROSEMIDE 20 MG TAB PO SCH (07:32)
[2017-11-26] MEDS: AMLODIPINE BESYLATE 5 MG TAB PO SCH (07:33)
[2017-11-26] MEDS: CETIRIZINE HCL 10 MG TAB PO SCH (07:33)
[2017-11-26] MEDS: FLUOXETINE HCL 20 MG CAP PO SCH (07:33)
[2017-11-26 07:34] LABS: CREATININE 0.71 mg/dl (0.60-1.20)
[2017-11-26 07:35] LABS: CALCIUM 7.9 mg/dl (8.5-10.1); POTASSIUM 3.2 mmol/L (3.5-5.1)
[2017-11-26 07:37] LABS: TOTAL PROTEIN 6.5 gm/dl (6.4-8.2)
[2017-11-26 07:51] VITALS: BP 126/74; PULSE 69; TEMP 36.8; O2SAT 97
[2017-11-26] MEDS ORDERED: POTASSIUM CHLORIDE 20 MEQ TABCR PO STA (08:56)
[2017-11-26] MEDS ORDERED: THIAMINE HCL 100 MG TAB PO ONE (11:46)
[2017-11-26 11:55] VITALS: BP 121/69; PULSE 59; TEMP 36.5; O2SAT 97
--- NOTE | 2017-11-26 15:43 | Neurology Consultation ---
Neurology Consultation Date of Consultation: Nov 26, 2017. Attending Physician: Vikc Gramajo D.O. Primary Care Physician: Joanne Blas Reason for Consultation: acute encephalopathy. History of Present Illness Source: patient, family, hospital records This is a 82-year-old female who presents for acute encephalopathy. Most of the history is given by the daughters as the patient gives only limited history and subjective findings. Daughters report that last weekend starting Tuesday she was having symptoms of nausea, upper respiratory bronchitis type symptoms and decreased appetite. She seem to be drinking well so. She did see her family physician regarding this and was put on antibiotics. Patient was also having symptoms of cough. Overall viral symptoms seemed mild and not to severe per family. They report that they check on her on a daily basis. Daughter reports that she called her Tuesday night and she seemed fine. afternoon the patient called because she was having confusion and difficulty figuring out her medications. When the daughter went to check on her she seemed acutely confused. Daughter took her to the emergency room for evaluation. She reports that later that night she got CAT scan and MRI. Patient seemed to be worse in terms of her mental status on Tuesday which could have partly been due to receiving extra dose of Ativan for the MRI. Daughters report that she seems minimally better cognitive and mental status pathak today. Daughter reports that she seems to have significant expressive aphasia since this is all happening. Does not seem to be able to get out her words. Seems confused over how to do simple things like feed herself. They report that at baseline while she had some memory loss she seemed to cover well and was still independent in her activities of daily living. They report that she was managing her own finances, managing her medications, and driving. Patient denies any recent fevers. Denies any abnormal headaches. Did have some shortness of breath with walking recently family reports that she does not tend to exercise or walk for long distances on a regular basis. Patient did have one recent fall about a week ago but otherwise family and patient denies any additional falls. Denies any ambulatory dysfunction. They have noted a slow cognitive decline over the last 1 to 2 years. No severe changes in personality or thinking. They have also for the same amount of time have noticed tremors in her bilateral hands. Daughter thinks it seems to be worse with action. Daughter also reported that she only tends to drink 2 glasses of wine per night. She goes to a specific bar and the control chemist is able to confirm that she only has 2 glasses, but reports that recently it seems like she has been becoming intoxicated with 2 glasses when before she had not. Hospital workup to date was reviewed. Ultrasound of the carotids was unremarkable MRI of the brain report and images were reviewed by myself. The patient has moderate T2 hyperintensities in the subcortical white matter bilaterally consistent with either small vessel ischemic disease or past small ischemic strokes possibly from her history of A. fib before she was treated. This all looks chronic and nothing looks acute or subacute. Mild age-related atrophy noted. Labs: CBC and complete metabolic panel were unremarkable. TSH within normal limits. Ammonia and magnesium within normal limits. Urinalysis was unremarkable. Lyme was negative. Past Medical/Surgical History A. fib on Xarelto Hypertension Depression/anxiety and insomnia Mitral valve prolapse Family History Family history significant for mother with stroke. Cancer, CAD, and hypertension within the family Social History Patient normally lives on her own is independent in her activities of daily living. There is close supervision with her children. No tobacco use. Drinks 2 glasses of wine per day although has been noted to may be become more intoxicated on that amount than she used to. No illegal drug use or supplement use Smoking Status: Never smoker Smokeless Tobacco Use: No Marital Status: Occupation Status: retired Allergies Coded Allergies: Ampicillin (Verified Allergy, Unknown, ., 11/24/17) NUTS (Verified Allergy, Unknown, ., 11/24/17) Shellfish (Verified Allergy, Unknown, HIVES, 11/25/17) White Fish (Verified Allergy, Unknown, Unknown, 11/25/17) RD added 08/15/12 to alert kitchen of food allergy. Uncoded Allergies: IMITATION CHEESE (Allergy, Mild, ANAPHYLAXIS, 01/16/15) Current Inpatient Medications Current Inpatient Medications Medications (Trade) Dose Ordered Sig/Rebeka Route Start Time Stop Time Status Last Admin Dose Admin Acetaminophen (Tylenol Tab) 650 mg Q4H PRN PO 11/24/17 21:30 12/24/17 21:29 Al Hydrox/Mg Hydrox/Simethicone (Maalox Max Susp) 15 ml Q4H PRN PO 11/24/17 21:30 12/24/17 21:29 Magnesium Hydroxide (Milk Of Magnesia Susp) 30 ml Q12H PRN PO 11/24/17 21:30 12/24/17 21:29 Zolpidem Tartrate (Ambien Tab) 5 mg HSZ PRN PO 11/24/17 21:30 12/24/17 21:29 Ondansetron HCl (Zofran Inj) 4 mg Q6H PRN IV 11/24/17 21:30 12/24/17 21:29 Nitroglycerin (Nitrostat Tab) 0.4 mg UD PRN SL 11/24/17 21:30 12/24/17 21:29 Polyethylene (Miralax Powder Packet) 17 gm DAILY PRN PO 11/24/17 21:30 12/24/17 21:29 Amlodipine Besylate (Norvasc Tab) 5 mg DAILY PO 11/25/17 09:00 12/25/17 08:59 11/26/17 07:33 5 MG Calcium/Vitamin D (Caltrate Plus Tab) 1 tab DAILY PO 11/25/17 09:00 12/25/17 08:59 11/26/17 07:31 1 TAB Cetirizine HCl (zyrTEC TAB) 10 mg DAILY PO 11/25/17 09:00 12/25/17 08:59 11/26/17 07:33 10 MG Fluoxetine HCl (Prozac Cap) 20 mg DAILY PO 11/25/17 09:00 12/25/17 08:59 11/26/17 07:33 20 MG Furosemide (Lasix Tab) 20 mg DAILY PO 11/25/17 09:00 12/25/17 08:59 11/26/17 07:32 20 MG Lorazepam (Ativan Tab) 0.5 mg BID PRN PO 11/24/17 21:30 12/24/17 21:29 11/24/17 22:16 0.5 MG Metoprolol Tartrate (Lopressor Tab) 50 mg BID PO 11/25/17 09:00 12/25/17 08:59 11/26/17 07:32 50 MG Rivaroxaban (Xarelto Tab) 15 mg QDD PO 11/25/17 16:45 12/25/17 17:59 11/25/17 16:51 15 MG Pantoprazole Sodium (Protonix Tab) 40 mg DAILY PO 11/25/17 09:00 12/25/17 08:59 11/26/17 07:32 40 MG Ceftriaxone Sodium 1 gm/ Dextrose 50 ml @ 100 mls/hr Q24H IV 11/25/17 01:00 12/05/17 00:59 11/26/17 01:14 100 MLS/HR Potassium Chloride (Callie Ciel Elix) 20 meq BID PO 11/25/17 09:00 12/25/17 08:59 11/26/17 07:32 20 MEQ Miscellaneous (Iv Fluids Completed) 1 ea PRN PRN N/A 11/25/17 00:30 11/25/18 00:29 Lorazepam (Ativan Inj) 0.5 mg HS IV 11/25/17 21:00 12/25/17 20:59 11/25/17 20:48 0.5 MG Thiamine HCl (Vitamin B-1 Tab) 100 mg QAM PO 11/27/17 09:00 12/27/17 08:59 Review of Systems Complete review of systems otherwise negative except for the above-noted in HPI Physical Exam Vital Signs (Past 24 Hrs): Date Time Temp Pulse Resp B/P (MAP) Pulse Ox O2 Delivery O2 Flow Rate FiO2 11/26/17 12:00 Room Air 11/26/17 11:55 36.5 59 16 121/69 (86) 97 11/26/17 08:00 Room Air 11/26/17 07:51 36.8 69 16 126/74 (91) 97 11/26/17 04:00 Room Air 11/26/17 03:31 36.9 98 18 123/77 (92) 91 Room Air 11/25/17 23:59 Room Air 11/25/17 23:45 37.0 105 18 121/69 (86) 91 Room Air 11/25/17 20:00 Room Air 11/25/17 18:35 36.8 96 20 141/88 (105) 91 Room Air 11/25/17 16:00 Room Air 11/25/17 15:50 36.6 81 20 131/88 (102) 92 Room Air Gen.: Patient is alert and sitting in bed, in no acute distress. HEENT: Normocephalic /atraumatic, no scleral icterus Heart: Regular rate and rhythm Extremities: No gross deformities or rashes noted Neurological examination: Mental status: Patient is alert and oriented to person and partially to place. She is able to correctly say that she is in the hospital but not which hospital.. Attention and concentration normal for the situation. Poor fund of knowledge in recent and remote memory are impaired. Patient also tends to perseverate on previous answers given. Speech is sparse but fluent without any dysarthria noted. Patient's lack of expressive language was likely secondary to overall global cognitive impairment rather than a specific aphasia Cranial nerve: Visual ho appear to be grossly intact. Funduscopic examination was unremarkable. No papilledema. Pupils equally round and reactive to light. Extraocular muscles intact without nystagmus. No facial asymmetry noted. Facial sensation intact. Tongue is midline. Good palatal elevation. Good shoulder shrug bilaterally. Hearing grossly intact to voice. Strength: 5/5 both proximal and distally in all extremities. There is no arm drift. Patient does have some mild cogwheel rigidity in the right greater than left upper extremity. Also noted to have classic pill-rolling tremor in the right hand and sometimes in the left at rest. There was some action tremors that were sometimes also seen with movement. Sensation: Grossly intact to light touch in all extremities. Deep tendon reflexes: +1 in bilateral biceps, brachioradialis and patellar. Toes were downgoing to plantar stimulation Coordination: Patient was not unable to understand instructions for finger to nose testing, but appeared to reach out and grab without any ataxic movements. Station within the bed was normal Laboratory Results Past 24 Hours: 11/26/17 06:54 Red Blood Count 4.66, Mean Corpuscular Volume 94.2, Mean Corpuscular Hemoglobin 33.0, Mean Corpuscular Hemoglobin Concent 35.1, Mean Platelet Volume 9.9, Neutrophils (%) (Auto) 54.1, Lymphocytes (%) (Auto) 28.2, Monocytes (%) (Auto) 17.0, Eosinophils (%) (Auto) 0.0, Basophils (%) (Auto) 0.5, Neutrophils # (Auto ) 2.95, Lymphocytes # (Auto) 1.54, Monocytes # (Auto) 0.93, Eosinophils # (Auto ) 0.00, Basophils # (Auto) 0.03 11/26/17 06:54 Test 11/26/17 06:54 White Blood Count 5.46 K/uL (4.8-10.8) Red Blood Count 4.66 M/uL (4.2-5.4) Hemoglobin 15.4 g/dL (12.0-16.0) Hematocrit 43.9 % (37-47) Mean Corpuscular Volume 94.2 fL (80-100) Mean Corpuscular Hemoglobin 33.0 pg (25-34) Mean Corpuscular Hemoglobin Concent 35.1 g/dl (32-36) Platelet Count 143 K/uL (130-400) Mean Platelet Volume 9.9 fL (7.4-10.4) Neutrophils (%) (Auto) 54.1 % Lymphocytes (%) (Auto) 28.2 % Monocytes (%) (Auto) 17.0 % Eosinophils (%) (Auto) 0.0 % Basophils (%) (Auto) 0.5 % Neutrophils # (Auto) 2.95 K/uL (1.4-6.5) Lymphocytes # (Auto) 1.54 K/uL (1.2-3.4) Monocytes # (Auto) 0.93 K/uL (0.11-0.59) Eosinophils # (Auto) 0.00 K/uL (0-0.5) Basophils # (Auto) 0.03 K/uL (0-0.2) RDW Standard Deviation 48.3 fL (36.4-46.3) RDW Coefficient of Variation 14.0 % (11.5-14.5) Immature Granulocyte % (Auto) 0.2 % Immature Granulocyte # (Auto) 0.01 K/uL (0.00-0.02) Anion Gap 10.0 mmol/L (3-11) Est Creatinine Clear Calc Drug Dose 59.3 ml/min Estimated GFR () 92.6 Estimated GFR (Non- 79.9 BUN/Creatinine Ratio 14.0 (10-20) Calcium Level 7.9 mg/dl (8.5-10.1) Total Bilirubin 1.2 mg/dl (0.2-1) Aspartate Amino Transf (AST/SGOT) 25 U/L (15-37) Alanine Aminotransferase (ALT/SGPT) 26 U/L (12-78) Alkaline Phosphatase 74 U/L (45-117) Ammonia 32.0 umol/L (11-32) Total Protein 6.5 gm/dl (6.4-8.2) Albumin 3.0 gm/dl (3.4-5.0) Globulin 3.5 gm/dl (2.5-4.0) Albumin/Globulin Ratio 0.9 (0.9-2) Lyme Disease IgG Antibody NEG (NEG) Lyme Disease IgM Antibody NEG (NEG) Imaging As noted above in HPI Impression This is a 82-year-old female with acute encephalopathy. More than likely acute encephalopathy is multifactorial. 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 Patient also has signs of mild Parkinson's disease on examination. There is an association with Parkinson's and a greater likelihood of developing dementia. It is unclear the etiology for her acute encephalopathy at this time. Certainly a recent illness could have contributed. In addition even though she has been on many of her medications for a long time, her tolerance or metabolism for some of her medications could have changed (which would also be consistent with family report that she seems to be now intoxicated on her 2 glasses of wine per night when this did not used to happen). Specifically her Ativan and Ambien at night could contribute to delirium. Plan At this time I do not see anything specifically on her examination that suggest an acute stroke. Daughter is concerned that potentially an acute stroke could have been missed if her MRI was done too early which is a small possibility. I think it is acceptable at this point to repeat her MRI of her brain to see if there is any acute or subacute stroke that was missed. Warned the family that given Ativan for the MRI may make her more acutely confused the next day and that this should be expected. Agree with checking B12 level and folic acid for secondary causes of cognitive decline. Recommend B12 levels above 400. In addition I have added on thiamine level. Agree with giving empiric oral thiamine for now. I have discontinued Ativan and Ambien as this can contribute to delirium. Considering the patient reportedly only takes 0.5 mg at night of Ativan, I do not think that she needs to be tapered off. I have provided an order for as needed Seroquel 25 mg twice a day as needed for agitation or severe anxiety. Discussed with family that she can follow-up in neurology clinic as an outpatient for further evaluation and treatment for Parkinson's. I do not think that she needs to be started on a Parkinson's medication as an inpatient and could complicate or confuse her recovery course trying to add on another medication at this time. In the near future the patient would probably benefit from the addition of Aricept to help slow down cognitive decline and memory loss. Could consider starting Aricept 5 mg at bedtime in the next day or 2. Thank you for allowing me to participate in this patient's care. If there is any questions or concerns, feel free to call/page me.
--- NOTE | 2017-11-26 16:01 | DIAGNOSTIC IMAGING REPORT ---
MRI OF THE BRAIN WITHOUT IV CONTRAST CLINICAL HISTORY: Change in mental status. COMPARISON STUDY: CT and MRI of the brain dated 11/24/2017. TECHNIQUE: MRI of the brain was performed utilizing various T1 and T2-weighted sequences in the axial, sagittal, and coronal planes. IV contrast was not administered for this examination. FINDINGS: Brain parenchyma: There are age-related involutional changes noting moderate subcortical and periventricular microangiopathic disease. A small focus of left frontal encephalomalacia is unchanged and consistent with a remote infarct. Chronic lacunar infarcts are present throughout both cerebellar hemispheres, in the right thalamus, in the right caudate head. There is no hemorrhage or mass effect. There is no restricted diffusion to suggest acute ischemia. Solano-white matter differentiation is preserved. No extra-axial fluid collection is seen. The cerebellar tonsils are normal in configuration. Ventricles, sulci, and cisterns: Prominent secondary to involutional change. Pituitary and sella: Unremarkable. Intracranial vasculature: Normal flow voids are maintained at the skull base. Orbits: The bony orbits are grossly intact. Orbital contents are normal in appearance noting bilateral ocular lens implants. Sinuses and mastoids: Trace mucosal thickening is seen in the right maxillary antrum. The remaining paranasal sinuses are clear, and the mastoid air cells are well pneumatized. Calvarium: Unremarkable. Cervical cord: Partially visualized cervical spinal cord is normal in morphology and signal intensity. IMPRESSION: 1. No acute intracranial abnormality and no significant change from study performed 2 days previously. 2. Senescent change and remote infarcts as above. Electronically signed by: Balta Tillman M.D. 11/26/2017 4:00 PM Dictated Date/Time: 11/26/2017 3:56 PM
[2017-11-26] MEDS: RIVAROXABAN TAB 15 MG TAB PO SCH (16:15)
--- NOTE | 2017-11-26 16:45 | Family Medicine Progress Note ---
Progress Note Date of Service Nov 26, 2017. Subjective Pt evaluation today including: conversation w/ patient, physical exam, chart review, lab review Pain: denies any pain this AM PO Intake: tolerating Voiding: incontinence (per nursing reports ) Note: Hx may not be reliable due to AMS Denies any pain this AM. Reports persistent cough. Per nursing: incontinent and frequently voiding; confused/disoriented Constitutional: No fever Respiratory: + cough Cardiovascular: No chest pain Abdomen: No pain, No nausea, No vomiting Female : + urinary frequency, + incontinence Medications Current Inpatient Medications Medications (Trade) Dose Ordered Sig/Rebeka Route Start Time Stop Time Status Last Admin Dose Admin Acetaminophen (Tylenol Tab) 650 mg Q4H PRN PO 11/24/17 21:30 12/24/17 21:29 Al Hydrox/Mg Hydrox/Simethicone (Maalox Max Susp) 15 ml Q4H PRN PO 11/24/17 21:30 12/24/17 21:29 Magnesium Hydroxide (Milk Of Magnesia Susp) 30 ml Q12H PRN PO 11/24/17 21:30 12/24/17 21:29 Ondansetron HCl (Zofran Inj) 4 mg Q6H PRN IV 11/24/17 21:30 12/24/17 21:29 Nitroglycerin (Nitrostat Tab) 0.4 mg UD PRN SL 11/24/17 21:30 12/24/17 21:29 Polyethylene (Miralax Powder Packet) 17 gm DAILY PRN PO 11/24/17 21:30 12/24/17 21:29 Amlodipine Besylate (Norvasc Tab) 5 mg DAILY PO 11/25/17 09:00 12/25/17 08:59 11/26/17 07:33 5 MG Calcium/Vitamin D (Caltrate Plus Tab) 1 tab DAILY PO 11/25/17 09:00 12/25/17 08:59 11/26/17 07:31 1 TAB Cetirizine HCl (zyrTEC TAB) 10 mg DAILY PO 11/25/17 09:00 12/25/17 08:59 11/26/17 07:33 10 MG Fluoxetine HCl (Prozac Cap) 20 mg DAILY PO 11/25/17 09:00 12/25/17 08:59 11/26/17 07:33 20 MG Furosemide (Lasix Tab) 20 mg DAILY PO 11/25/17 09:00 12/25/17 08:59 11/26/17 07:32 20 MG Metoprolol Tartrate (Lopressor Tab) 50 mg BID PO 11/25/17 09:00 12/25/17 08:59 11/26/17 07:32 50 MG Rivaroxaban (Xarelto Tab) 15 mg QDD PO 11/25/17 16:45 12/25/17 17:59 11/26/17 16:15 15 MG Pantoprazole Sodium (Protonix Tab) 40 mg DAILY PO 11/25/17 09:00 12/25/17 08:59 11/26/17 07:32 40 MG Ceftriaxone Sodium 1 gm/ Dextrose 50 ml @ 100 mls/hr Q24H IV 11/25/17 01:00 12/05/17 00:59 11/26/17 01:14 100 MLS/HR Potassium Chloride (Callie Ciel Elix) 20 meq BID PO 11/25/17 09:00 12/25/17 08:59 11/26/17 07:32 20 MEQ Miscellaneous (Iv Fluids Completed) 1 ea PRN PRN N/A 11/25/17 00:30 11/25/18 00:29 Thiamine HCl (Vitamin B-1 Tab) 100 mg QAM PO 11/27/17 09:00 12/27/17 08:59 Quetiapine Fumarate (seroQUEL TAB) 25 mg BID PRN PO 11/26/17 15:45 12/26/17 15:44 Objective Vital Signs Date Time Temp Pulse Resp B/P (MAP) Pulse Ox O2 Delivery O2 Flow Rate FiO2 11/26/17 12:00 Room Air 11/26/17 11:55 36.5 59 16 121/69 (86) 97 11/26/17 08:00 Room Air 11/26/17 07:51 36.8 69 16 126/74 (91) 97 11/26/17 04:00 Room Air 11/26/17 03:31 36.9 98 18 123/77 (92) 91 Room Air 11/25/17 23:59 Room Air 11/25/17 23:45 37.0 105 18 121/69 (86) 91 Room Air 11/25/17 20:00 Room Air 11/25/17 18:35 36.8 96 20 141/88 (105) 91 Room Air Physical Exam General Appearance: no apparent distress Eyes: normal inspection Respiratory/Chest: normal breath sounds, + crackles (RLL) Cardiovascular: regular rate, rhythm, no edema, no murmur Abdomen: normal bowel sounds, non tender, soft Extremities: non-tender, no pedal edema Neurologic/Psychiatric: alert, + pertinent finding (oriented to person only; aphasia) Laboratory Results 11/26/17 06:54 Red Blood Count 4.66, Mean Corpuscular Volume 94.2, Mean Corpuscular Hemoglobin 33.0, Mean Corpuscular Hemoglobin Concent 35.1, Mean Platelet Volume 9.9, Neutrophils (%) (Auto) 54.1, Lymphocytes (%) (Auto) 28.2, Monocytes (%) (Auto) 17.0, Eosinophils (%) (Auto) 0.0, Basophils (%) (Auto) 0.5, Neutrophils # (Auto ) 2.95, Lymphocytes # (Auto) 1.54, Monocytes # (Auto) 0.93, Eosinophils # (Auto ) 0.00, Basophils # (Auto) 0.03 11/26/17 06:54 Test 11/26/17 06:54 White Blood Count 5.46 K/uL (4.8-10.8) Red Blood Count 4.66 M/uL (4.2-5.4) Hemoglobin 15.4 g/dL (12.0-16.0) Hematocrit 43.9 % (37-47) Mean Corpuscular Volume 94.2 fL (80-100) Mean Corpuscular Hemoglobin 33.0 pg (25-34) Mean Corpuscular Hemoglobin Concent 35.1 g/dl (32-36) Platelet Count 143 K/uL (130-400) Mean Platelet Volume 9.9 fL (7.4-10.4) Neutrophils (%) (Auto) 54.1 % Lymphocytes (%) (Auto) 28.2 % Monocytes (%) (Auto) 17.0 % Eosinophils (%) (Auto) 0.0 % Basophils (%) (Auto) 0.5 % Neutrophils # (Auto) 2.95 K/uL (1.4-6.5) Lymphocytes # (Auto) 1.54 K/uL (1.2-3.4) Monocytes # (Auto) 0.93 K/uL (0.11-0.59) Eosinophils # (Auto) 0.00 K/uL (0-0.5) Basophils # (Auto) 0.03 K/uL (0-0.2) RDW Standard Deviation 48.3 fL (36.4-46.3) RDW Coefficient of Variation 14.0 % (11.5-14.5) Immature Granulocyte % (Auto) 0.2 % Immature Granulocyte # (Auto) 0.01 K/uL (0.00-0.02) Anion Gap 10.0 mmol/L (3-11) Est Creatinine Clear Calc Drug Dose 59.3 ml/min Estimated GFR () 92.6 Estimated GFR (Non- 79.9 BUN/Creatinine Ratio 14.0 (10-20) Calcium Level 7.9 mg/dl (8.5-10.1) Total Bilirubin 1.2 mg/dl (0.2-1) Aspartate Amino Transf (AST/SGOT) 25 U/L (15-37) Alanine Aminotransferase (ALT/SGPT) 26 U/L (12-78) Alkaline Phosphatase 74 U/L (45-117) Ammonia 32.0 umol/L (11-32) Total Protein 6.5 gm/dl (6.4-8.2) Albumin 3.0 gm/dl (3.4-5.0) Globulin 3.5 gm/dl (2.5-4.0) Albumin/Globulin Ratio 0.9 (0.9-2) Lyme Disease IgG Antibody NEG (NEG) Lyme Disease IgM Antibody NEG (NEG) Assessment and Plan 82 yoF admitted for altered mental status. PMH: Afib, HTN, "heart disease", "kidney disease", "stomach problems", hiatal hernia, s/p hysterectomy and cataract surgery. Concern for altered mental status: Of unknown etiology. No acute/subacute stroke. Persistent. Only oriented to person today. - Neuro on board - consistent with acute multifactorial encephalopathy (mixed Alzheimer's and vascular dementia; concern for Parkinson's tremor which can also cause dementia) - Repeat MRI unchanged - Dc Ativan and Ambien as can increase delirium - Seroquel PRN for agitation - Initial CT head and MRI brain: multiple chronic findings of unknown duration - Carotid Doppler unremarkable - TSH normal - Lyme serology negative and Ammonia level 32 Cough: dry cough with RLL crackles. Afebrile. No WBC elevation. CXR neg - Was on doxycycline prior to admission x 2 days. - On Rocephin for concern of UTI - On RA Increased urinary frequency: - UA negative for WBCs; 1+ bacteria, few RBCs and lots of epithelial cells - UCx negative - Started on empiric abx: ceftriaxone 1 gram IV q24h Hypokalemia: K 3.2 - repleted with KCL 40meq - On KCL 20meq BID - May benefit from ongoing KCl supplementation at home given on Lasix Atrial fibrillation: - Continue Lopressor 50 BID and Xarelto 15 daily - Echocardiogram pending HTN: - continue amlodipine 5 mg and Lasix 20 mg daily Depression: - Continue Prozac 20 daily Agitation/Insomnia: - Seroquel PRN - Dced Ativan and Ambien due to delirium side effects Allergies: - Continue Cetirizine 10 mg daily Code status: Full code Diet: AHA. DVT prophy: Xarelto PT/OT: Pending evaluation Disbo: Admit to med/surg Resident Physician Supervision Note: I was present with Dr. Musa during the history and exam. I discussed the case with the resident and agree with the findings and plan as documented in the note. Perhaps slight improvement today in terms of mental status, but after discussion with family today, her current status is far below her baseline. She has underlying dementia, but family notes she would "cover well" and prior to her acute decompensation, was independent for all ADLs. Agree with repeat MRI; appreciate neurology input. Documented By: Vick Gramajo Resident Involvement: Resident Care Provided Care Provided: Adult Hospital Medicine
[2017-11-26 19:31] VITALS: BP 125/65; PULSE 81; TEMP 36.5; O2SAT 95
[2017-11-26 20:00] VITALS: O2SAT 95
[2017-11-26] MEDS: QUETIAPINE FUMARATE 25 MG TAB PO PRN (21:36)
[2017-11-26 23:15] VITALS: BP 102/63; PULSE 93; TEMP 36.5; O2SAT 92
[2017-11-27] VITALS (8 sets, daily range): BP systolic 106–130; BP diastolic 65–89; PULSE 68–97; TEMP 36.4–36.8; O2SAT 91–96
[2017-11-27] MEDS: CEFTRIAXONE SOD INJ 1 GM in DEXTROSE 5% ADD-VANTAGE 50ML 50 ML IV SCH (01:17)
[2017-11-27 06:24] LABS: CREATININE 0.75 mg/dl (0.60-1.20); POTASSIUM 3.5 mmol/L (3.5-5.1)
[2017-11-27] MEDS: FUROSEMIDE 20 MG TAB PO SCH (07:33)
[2017-11-27] MEDS: CETIRIZINE HCL 10 MG TAB PO SCH (07:33)
[2017-11-27] MEDS: PANTOprazole SOD 40 MG TAB PO SCH (07:33)
[2017-11-27] MEDS: METOPROLOL TARTRATE 50 MG TAB PO SCH ×2 (07:33→20:48)
[2017-11-27] MEDS: CALCIUM 600MG + VIT D 400 IU TAB PO SCH (07:33)
[2017-11-27] MEDS: POTASSIUM CHLORIDE 20 MEQ/15 ML UDC PO SCH ×2 (07:34→20:47)
[2017-11-27] MEDS: AMLODIPINE BESYLATE 5 MG TAB PO SCH (07:34)
[2017-11-27] MEDS: FLUOXETINE HCL 20 MG CAP PO SCH (07:34)
[2017-11-27] MEDS: THIAMINE HCL 100 MG TAB PO SCH (09:59)
--- NOTE | 2017-11-27 10:53 | Neurology Progress Notes ---
Neurology Progress Note Date of Service Nov 27, 2017. Subjective The patient still significantly confused. No worsening of mentation. No additional neurological signs or symptoms at this time. Patient does not have any specific complaints. B12 level was above 1000. Folic acid was within normal limits MRI of the brain report and images were reviewed by myself and similar to previous imaging with signs of chronic old subcortical small vessel ischemic changes versus lacunar strokes. Objective Date Time Temp Pulse Resp B/P (MAP) Pulse Ox O2 Delivery O2 Flow Rate FiO2 11/27/17 08:07 Room Air 11/27/17 08:03 36.8 68 18 130/89 (103) 96 11/27/17 04:06 95 Room Air 11/27/17 03:44 36.6 83 20 124/73 (90) 91 Room Air 11/27/17 00:13 95 Room Air 11/26/17 23:15 36.5 93 20 102/63 (76) 92 Room Air 11/26/17 20:00 95 Room Air 11/26/17 19:31 36.5 81 18 125/65 (85) 95 11/26/17 16:00 Room Air 11/26/17 12:00 Room Air 11/26/17 11:55 36.5 59 16 121/69 (86) 97 Last 24 Hours Test 11/27/17 05:17 Sodium Level 137 mmol/L Potassium Level 3.5 mmol/L Chloride Level 106 mmol/L Carbon Dioxide Level 25 mmol/L Anion Gap 6.0 mmol/L Blood Urea Nitrogen 12 mg/dl Creatinine 0.75 mg/dl Est Creatinine Clear Calc Drug Dose 56.1 ml/min Estimated GFR () 86.6 Estimated GFR (Non- 74.8 BUN/Creatinine Ratio 15.7 Random Glucose 101 mg/dl Calcium Level 8.0 mg/dl Vitamin B12 Level 1725 pg/mL Folate 11.66 ng/mL Exam: Gen.: Patient is alert and sitting in bed, in no acute distress. Extremities: No gross deformities or rashes noted Neurological examination: Mental status: Patient is alert and oriented to person. Patient could not tell me where she was but correctly stated month and current president. Attention and concentration normal for the situation. Poor fund of knowledge and recent and remote memory are impaired. Patient also tends to perseverate on previous answers given. Speech is sparse but fluent without any dysarthria noted. Patient's lack of expressive language was likely secondary to overall global cognitive impairment rather than a specific aphasia Cranial nerve: Extraocular muscles intact without nystagmus. No facial asymmetry noted. Hearing grossly intact to voice. Strength: 5/5 both proximal and distally in all extremities. There is no arm drift. Patient does have some mild cogwheel rigidity in the right greater than left upper extremity. Also noted to have classic pill-rolling tremor in the right hand and sometimes in the left at rest. There was some action tremors that were sometimes also seen with movement. Station within the bed was normal Current Inpatient Medications Medications (Trade) Dose Ordered Sig/Rebeka Route Start Time Stop Time Status Last Admin Dose Admin Acetaminophen (Tylenol Tab) 650 mg Q4H PRN PO 11/24/17 21:30 12/24/17 21:29 Al Hydrox/Mg Hydrox/Simethicone (Maalox Max Susp) 15 ml Q4H PRN PO 11/24/17 21:30 12/24/17 21:29 Magnesium Hydroxide (Milk Of Magnesia Susp) 30 ml Q12H PRN PO 11/24/17 21:30 12/24/17 21:29 Ondansetron HCl (Zofran Inj) 4 mg Q6H PRN IV 11/24/17 21:30 12/24/17 21:29 Nitroglycerin (Nitrostat Tab) 0.4 mg UD PRN SL 11/24/17 21:30 12/24/17 21:29 Polyethylene (Miralax Powder Packet) 17 gm DAILY PRN PO 11/24/17 21:30 12/24/17 21:29 Amlodipine Besylate (Norvasc Tab) 5 mg DAILY PO 11/25/17 09:00 12/25/17 08:59 11/27/17 07:34 5 MG Calcium/Vitamin D (Caltrate Plus Tab) 1 tab DAILY PO 11/25/17 09:00 12/25/17 08:59 11/27/17 07:33 1 TAB Cetirizine HCl (zyrTEC TAB) 10 mg DAILY PO 11/25/17 09:00 12/25/17 08:59 11/27/17 07:33 10 MG Fluoxetine HCl (Prozac Cap) 20 mg DAILY PO 11/25/17 09:00 12/25/17 08:59 11/27/17 07:34 20 MG Furosemide (Lasix Tab) 20 mg DAILY PO 11/25/17 09:00 12/25/17 08:59 11/27/17 07:33 20 MG Metoprolol Tartrate (Lopressor Tab) 50 mg BID PO 11/25/17 09:00 12/25/17 08:59 11/27/17 07:33 50 MG Rivaroxaban (Xarelto Tab) 15 mg QDD PO 11/25/17 16:45 12/25/17 17:59 11/26/17 16:15 15 MG Pantoprazole Sodium (Protonix Tab) 40 mg DAILY PO 11/25/17 09:00 12/25/17 08:59 11/27/17 07:33 40 MG Ceftriaxone Sodium 1 gm/ Dextrose 50 ml @ 100 mls/hr Q24H IV 11/25/17 01:00 12/05/17 00:59 11/27/17 01:17 100 MLS/HR Potassium Chloride (Callie Ciel Elix) 20 meq BID PO 11/25/17 09:00 12/25/17 08:59 11/27/17 07:34 20 MEQ Miscellaneous (Iv Fluids Completed) 1 ea PRN PRN N/A 11/25/17 00:30 11/25/18 00:29 Thiamine HCl (Vitamin B-1 Tab) 100 mg QAM PO 11/27/17 09:00 12/27/17 08:59 11/27/17 09:59 100 MG Quetiapine Fumarate (seroQUEL TAB) 25 mg BID PRN PO 11/26/17 15:45 12/26/17 15:44 11/26/17 21:36 25 MG Impression This is a 82-year-old female with acute encephalopathy. Encephalopathy is likely multifactorial. 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 Patient also has signs of mild Parkinson's disease on examination. There is an association with Parkinson's and a greater likelihood of developing dementia. It is unclear the etiology for her acute encephalopathy at this time. Certainly a recent illness could have contributed. In addition even though she has been on many of her medications for a long time, her tolerance or metabolism for some of her medications could have changed and her nightly Ativan could have started to contribute to encephalopathy and delirium. Plan thiamine level pending. Agree with giving empiric oral thiamine for now. Continue to avoid medications that can cause worsening encephalopathy and delirium such as Ativan (Benadryl is also another medication that can commonly cause confusion in the elderly). Seroquel available as needed for agitation or severe anxiety. Could consider starting Aricept 5 mg at bedtime. While typically this only helps to slow down symptoms and memory loss, may have some benefit in the setting of a acute encephalopathy with underlying dementia. follow-up in neurology clinic as an outpatient in 1 month for further evaluation and treatment for Parkinson's and for cognitive reevaluation. I do not think that she needs to be started on a Parkinson's medication as an inpatient and could complicate or confuse her recovery course trying to add on too many medication at this time. No additional neurological workup recommended at this time. We will see if patient's mentation improves over time (could take days to weeks if related to meds and illness). If there is any concerns for sudden fluctuations or decompensation of cognition, could consider routine EEG in the future, but I do not think that this is needed at this time. Thank you for allowing me to participate in this patient's care. If there is any questions or concerns, feel free to call/page me. Cerebral vascular risk factor modifications and recommendations: Blood pressure recommendations 130/80-110/70 Total cholesterol goal 100- 200 and LDL goal less than 100 Hemoglobin A1c goal less than 7 Encourage cardiovascular exercise at least 3 times a week for 30 minutes.
--- NOTE | 2017-11-27 13:04 | DIAGNOSTIC IMAGING REPORT ---
TWO VIEW CHEST CLINICAL HISTORY: Right lower lobe crackles on physical examination.. FINDINGS: AP and lateral chest radiographs are compared to study dated 11/24/2017. The heart appears enlarged and there is atherosclerotic calcification of the thoracic aorta. A large hiatal hernia is noted and there is left basilar atelectasis. Chronic interstitial thickening is similar to previous. No airspace consolidation or pleural effusion is identified. A calcified granuloma is noted in the right midlung. There is no pneumothorax. The skeletal structures are osteopenic. The bony thorax appears intact. IMPRESSION: 1. Mild cardiac enlargement with no acute cardiopulmonary abnormality. 2. Large hiatal hernia. Electronically signed by: Balta Tillman M.D. 11/27/2017 1:02 PM Dictated Date/Time: 11/27/2017 1:01 PM
--- NOTE | 2017-11-27 14:48 | Family Medicine Progress Note ---
Progress Note Date of Service Nov 27, 2017. Subjective Pt evaluation today including: conversation w/ patient, physical exam, chart review, lab review Pain: denies any pain PO Intake: tolerating Voiding: no voiding problems This AM pt reports occasional cough. Able to say she is in a hospital and upon prompting able to read [facility] on the TV screen but unable to say full name. Improved speech this AM. Constitutional: No fever Respiratory: + cough, No shortness of breath Cardiovascular: No chest pain Abdomen: No pain, No nausea, No vomiting Female : No dysuria Medications Current Inpatient Medications Medications (Trade) Dose Ordered Sig/Rebeka Route Start Time Stop Time Status Last Admin Dose Admin Acetaminophen (Tylenol Tab) 650 mg Q4H PRN PO 11/24/17 21:30 12/24/17 21:29 Al Hydrox/Mg Hydrox/Simethicone (Maalox Max Susp) 15 ml Q4H PRN PO 11/24/17 21:30 12/24/17 21:29 Magnesium Hydroxide (Milk Of Magnesia Susp) 30 ml Q12H PRN PO 11/24/17 21:30 12/24/17 21:29 Ondansetron HCl (Zofran Inj) 4 mg Q6H PRN IV 11/24/17 21:30 12/24/17 21:29 Nitroglycerin (Nitrostat Tab) 0.4 mg UD PRN SL 11/24/17 21:30 12/24/17 21:29 Polyethylene (Miralax Powder Packet) 17 gm DAILY PRN PO 11/24/17 21:30 12/24/17 21:29 Amlodipine Besylate (Norvasc Tab) 5 mg DAILY PO 11/25/17 09:00 12/25/17 08:59 11/27/17 07:34 5 MG Calcium/Vitamin D (Caltrate Plus Tab) 1 tab DAILY PO 11/25/17 09:00 12/25/17 08:59 11/27/17 07:33 1 TAB Cetirizine HCl (zyrTEC TAB) 10 mg DAILY PO 11/25/17 09:00 12/25/17 08:59 11/27/17 07:33 10 MG Fluoxetine HCl (Prozac Cap) 20 mg DAILY PO 11/25/17 09:00 12/25/17 08:59 11/27/17 07:34 20 MG Furosemide (Lasix Tab) 20 mg DAILY PO 11/25/17 09:00 12/25/17 08:59 11/27/17 07:33 20 MG Metoprolol Tartrate (Lopressor Tab) 50 mg BID PO 11/25/17 09:00 12/25/17 08:59 11/27/17 07:33 50 MG Rivaroxaban (Xarelto Tab) 15 mg QDD PO 11/25/17 16:45 12/25/17 17:59 11/26/17 16:15 15 MG Pantoprazole Sodium (Protonix Tab) 40 mg DAILY PO 11/25/17 09:00 12/25/17 08:59 11/27/17 07:33 40 MG Ceftriaxone Sodium 1 gm/ Dextrose 50 ml @ 100 mls/hr Q24H IV 11/25/17 01:00 12/05/17 00:59 11/27/17 01:17 100 MLS/HR Potassium Chloride (Callie Ciel Elix) 20 meq BID PO 11/25/17 09:00 12/25/17 08:59 11/27/17 07:34 20 MEQ Miscellaneous (Iv Fluids Completed) 1 ea PRN PRN N/A 11/25/17 00:30 11/25/18 00:29 Thiamine HCl (Vitamin B-1 Tab) 100 mg QAM PO 11/27/17 09:00 12/27/17 08:59 11/27/17 09:59 100 MG Quetiapine Fumarate (seroQUEL TAB) 25 mg BID PRN PO 11/26/17 15:45 12/26/17 15:44 11/26/17 21:36 25 MG Objective Vital Signs Date Time Temp Pulse Resp B/P (MAP) Pulse Ox O2 Delivery O2 Flow Rate FiO2 11/27/17 12:41 36.5 68 20 106/65 (79) 95 11/27/17 08:07 Room Air 11/27/17 08:03 36.8 68 18 130/89 (103) 96 11/27/17 04:06 95 Room Air 11/27/17 03:44 36.6 83 20 124/73 (90) 91 Room Air 11/27/17 00:13 95 Room Air 11/26/17 23:15 36.5 93 20 102/63 (76) 92 Room Air 11/26/17 20:00 95 Room Air 11/26/17 19:31 36.5 81 18 125/65 (85) 95 11/26/17 16:00 Room Air Physical Exam General Appearance: no apparent distress Eyes: normal inspection Neck: supple Respiratory/Chest: normal breath sounds, + crackles (RLL) Cardiovascular: regular rate, rhythm Abdomen: normal bowel sounds, non tender, soft Extremities: non-tender, no pedal edema Neurologic/Psychiatric: alert, + pertinent finding (oriented x 1; improved aphasia/speech compared to yesterday) Skin: warm/dry Laboratory Results 11/27/17 05:17 Test 11/27/17 05:17 Anion Gap 6.0 mmol/L (3-11) Est Creatinine Clear Calc Drug Dose 56.1 ml/min Estimated GFR () 86.6 Estimated GFR (Non- 74.8 BUN/Creatinine Ratio 15.7 (10-20) Calcium Level 8.0 mg/dl (8.5-10.1) Vitamin B12 Level 1725 pg/mL (211-911) Folate 11.66 ng/mL (>5.38) Assessment and Plan 82 yoF admitted for persistent acute altered mental status likely multifactorial in etiology: vascular vs. Alzheimer's deficiency and Parkinson' s. PMH: Afib, HTN, "heart disease", "kidney disease", "stomach problems", hiatal hernia, s/p hysterectomy and cataract surgery. Concern for altered mental status: Of unknown etiology. No acute/subacute stroke. Persistent. Only oriented to place today. Aphasia/speech mildly improved. - Neuro on board - consistent with acute multifactorial encephalopathy (mixed Alzheimer's and vascular dementia; concern for Parkinson's tremor which can also cause dementia) - Repeat MRI unchanged - Dc Ativan and Ambien as can increase delirium - Seroquel PRN for agitation - Initial CT head and MRI brain: multiple chronic findings of unknown duration - Carotid Doppler unremarkable - TSH normal - Lyme serology negative and Ammonia level 32 - B12 1725; folate 11.6 - Thiamine level pending - On thiamine 100mg daily Cough: dry cough with RLL crackles. Afebrile. No WBC elevation. repeat CXR neg - Was on doxycycline prior to admission x 2 days. - On Rocephin for concern of UTI - On RA Increased urinary frequency: - UA negative for WBCs; 1+ bacteria, few RBCs and lots of epithelial cells - UCx negative - Started on empiric abx: ceftriaxone 1 gram IV q24h Improved Hypokalemia: K 3.5 - On KCL 20meq BID - May benefit from ongoing KCl supplementation at home given on Lasix Atrial fibrillation: - Continue Lopressor 50 BID and Xarelto 15 daily - Echocardiogram pending HTN: - continue amlodipine 5 mg and Lasix 20 mg daily Depression: - Continue Prozac 20 daily Agitation/Insomnia: - Seroquel PRN - Dced Ativan and Ambien due to delirium side effects Allergies: - Continue Cetirizine 10 mg daily Code status: Full code Diet: AHA. DVT prophy: Xarelto PT/OT: Pending evaluation Disbo: Admit to med/surg. Discharge pending determination of placement by PT/OT re-evaluation (may benefit from acute rehab) Resident Physician Supervision Note: I was present with Dr. Musa during the history and exam. I discussed the case with the resident and agree with the findings and plan as documented in the note. Similar to yesterday, slight improvement today in terms of mental status , but her current status is far below her baseline. Repeat MRI non revealing. PRIMARY IMPRESSIONS 1) Mental status change, acute on chronic, likely multifactorial (acute illness in setting of baseline dementia and perhaps early PD). 2) AFIB, on chronic anticoagulation, rate-controlled PLAN 1) PT/OT 2) Consideration for inpatient rehabilitation given acuity of her symptoms 3) Limit medications which may affect sensorium. 4) Reasonable to begin Aricept 5 mg. 5) She does not carry a diagnosis of diabetes and her glucose readings have been reasonable. An A1c in 2016 was 6.1%. Most recent ACS guidelines would suggest an A1c between 7% and 8%. Resident Involvement: Resident Care Provided Care Provided: Adult Hospital Medicine
[2017-11-27] MEDS: RIVAROXABAN TAB 15 MG TAB PO SCH (16:08)
[2017-11-27] MEDS: QUETIAPINE FUMARATE 25 MG TAB PO PRN (20:49)
[2017-11-28] VITALS (8 sets, daily range): BP systolic 118–167; BP diastolic 76–93; PULSE 73–92; TEMP 36.3–37; O2SAT 92–97
[2017-11-28] MEDS: CEFTRIAXONE SOD INJ 1 GM in DEXTROSE 5% ADD-VANTAGE 50ML 50 ML IV SCH (01:34)
[2017-11-28 06:31] LABS: CALCIUM 8.3 mg/dl (8.5-10.1); CREATININE 0.94 mg/dl (0.60-1.20); POTASSIUM 3.6 mmol/L (3.5-5.1)
--- NOTE | 2017-11-28 08:54 | Family Medicine Progress Note ---
Progress Note Date of Service Nov 28, 2017. Subjective Pt evaluation today including: conversation w/ patient Found patient at first in bed eating breakfast, later in the bedside chair eating lunch. Patient does not volunteer any information but does make eye contact as I enter the room. Will answer simple questions such as name, , in a "hospital", and that she is here because she wasn't thinking right. She was unclear on the city or date. She seemed to track some of the conversation on how she may be advised to go to acute rehab (and seemed mildly unhappy about that) but afterwards would immediately ask if she was going home tomorrow. No apparent acute medical issues. Additional Comments: Unable to obtain due to dementia (vs acute delirium). Medications Current Inpatient Medications Medications (Trade) Dose Ordered Sig/Rebeka Route Start Time Stop Time Status Last Admin Dose Admin Acetaminophen (Tylenol Tab) 650 mg Q4H PRN PO 11/24/17 21:30 12/24/17 21:29 Al Hydrox/Mg Hydrox/Simethicone (Maalox Max Susp) 15 ml Q4H PRN PO 11/24/17 21:30 12/24/17 21:29 Magnesium Hydroxide (Milk Of Magnesia Susp) 30 ml Q12H PRN PO 11/24/17 21:30 12/24/17 21:29 Ondansetron HCl (Zofran Inj) 4 mg Q6H PRN IV 11/24/17 21:30 12/24/17 21:29 Nitroglycerin (Nitrostat Tab) 0.4 mg UD PRN SL 11/24/17 21:30 12/24/17 21:29 Polyethylene (Miralax Powder Packet) 17 gm DAILY PRN PO 11/24/17 21:30 12/24/17 21:29 Amlodipine Besylate (Norvasc Tab) 5 mg DAILY PO 11/25/17 09:00 12/25/17 08:59 11/27/17 07:34 5 MG Calcium/Vitamin D (Caltrate Plus Tab) 1 tab DAILY PO 11/25/17 09:00 12/25/17 08:59 11/27/17 07:33 1 TAB Cetirizine HCl (zyrTEC TAB) 10 mg DAILY PO 11/25/17 09:00 12/25/17 08:59 11/27/17 07:33 10 MG Fluoxetine HCl (Prozac Cap) 20 mg DAILY PO 11/25/17 09:00 12/25/17 08:59 11/27/17 07:34 20 MG Furosemide (Lasix Tab) 20 mg DAILY PO 11/25/17 09:00 12/25/17 08:59 11/27/17 07:33 20 MG Metoprolol Tartrate (Lopressor Tab) 50 mg BID PO 11/25/17 09:00 12/25/17 08:59 11/27/17 20:48 50 MG Rivaroxaban (Xarelto Tab) 15 mg QDD PO 11/25/17 16:45 12/25/17 17:59 11/27/17 16:08 15 MG Pantoprazole Sodium (Protonix Tab) 40 mg DAILY PO 11/25/17 09:00 12/25/17 08:59 11/27/17 07:33 40 MG Ceftriaxone Sodium 1 gm/ Dextrose 50 ml @ 100 mls/hr Q24H IV 11/25/17 01:00 12/05/17 00:59 11/28/17 01:34 100 MLS/HR Potassium Chloride (Callie Ciel Elix) 20 meq BID PO 11/25/17 09:00 12/25/17 08:59 11/27/17 20:47 20 MEQ Miscellaneous (Iv Fluids Completed) 1 ea PRN PRN N/A 11/25/17 00:30 11/25/18 00:29 Thiamine HCl (Vitamin B-1 Tab) 100 mg QAM PO 11/27/17 09:00 12/27/17 08:59 11/27/17 09:59 100 MG Quetiapine Fumarate (seroQUEL TAB) 25 mg BID PRN PO 11/26/17 15:45 12/26/17 15:44 11/27/17 20:49 25 MG Objective Vital Signs Date Time Temp Pulse Resp B/P (MAP) Pulse Ox O2 Delivery O2 Flow Rate FiO2 11/28/17 07:34 36.4 88 20 118/79 (92) 92 Room Air 11/28/17 04:15 95 Room Air 11/28/17 03:59 37.0 73 16 124/79 (94) 94 11/28/17 00:41 95 Room Air 11/27/17 23:57 36.8 97 18 115/82 (93) 95 11/27/17 20:00 36.4 83 16 120/73 (89) 94 Room Air 11/27/17 20:00 95 Room Air 11/27/17 16:00 Room Air 11/27/17 15:51 36.5 85 16 106/71 (83) 94 Room Air 11/27/17 12:41 36.5 68 20 106/65 (79) 95 11/27/17 12:00 Room Air Physical Exam Notes: General Appearance: Awake, oriented to name + + "hospital" + roughly why she's here, but not to date or location, appears comfortable in general, in NAD. CV: +S1S2 irregularly irregular, no murmur. Pulm: Clear to auscultation throughout. Abdomen: +BS, soft, non-tender, non-distended. Extremities: No pedal edema or calf tenderness. Eating with utensils without difficulty, can walk to the bathroom with assistance. Neuro: Moving all extremities. See 'general' above. Skin: Healing left fifth digit lesion. Lines: PIV. Laboratory Results 11/28/17 05:42 Test 11/28/17 05:42 Anion Gap 9.0 mmol/L (3-11) Est Creatinine Clear Calc Drug Dose 44.8 ml/min Estimated GFR () 65.9 Estimated GFR (Non- 56.9 BUN/Creatinine Ratio 20.3 (10-20) Calcium Level 8.3 mg/dl (8.5-10.1) Assessment and Plan 82 yo female admitted on [id number] due to concerns by family members for altered mental status. PMH: Afib, HTN, "heart disease", "kidney disease", "stomach problems", hiatal hernia, s/p hysterectomy and cataract surgery. Concern for altered mental status vs worsening dementia vs acute delirium: Patient is far more alert this morning than on arrival, though still has difficulties with both short and long-term memory. No new focal neuro deficits , but does have an ongoing mild hand tremor suggestive of Parkinson disease. Multiple head imaging studies suggests chronic vascular changes with no acute process. Cardiopulmonary exam/testing has been reassuring, as is no clear sign of an active acute infectious or metabolic process. - Leading etiologies for this: (1) the patient accidentally took too much of her home medication (e.g. ativan or ambien) (2) she had an acute respiratory illness that lead to some acute delirium, or (3) suspect some level of baseline dementia (mild-moderate) that was acutely worsened for this event. For #1, stopped these two medications as inpatient. Added seroquel BID prn. For #2, she is already rather quickly improving compared to three days ago, making overt delirium less likely. #3 remains probable. - Neurology consulted, see their full recommendations in their note. Urinalysis findings: Question of recent urinary frequency. UA negative for WBCs but a couple RBCs and lots of epithelial cells. 1+ bacteria as well. Was started briefly empirically on ceftriaxone, but that was stopped when 29Mar UCx had no pathological growth. Hypokalemia: Here K 2.8. Repleted. Is on home daily lasix. Here started on KCl 20 mEq PO BID. Monitoring. - May benefit from ongoing KCl supplementation at home. Atrial fibrillation: History of same, noted on admission as well. On home lopressor 50 BID and xarelto 15 daily. Patient may have recently missed a dose. HTN: On home amlodipine 5 mg daily and lasix 20 mg daily. Depression: On home prozac 20 daily. Insomnia: At home is on scheduled ativan 0.5 mg PO q HS as well as prn anxiety/ agitation. Stopped this here due to mental status concerns. Allergies: On home cetirizine 10 mg daily. Code status: Full code. Diet: AHA. DVT prophy: Xarelto. PT/OT: PT recommended further inpatient eval as her mental status improved. OT recommended either inpatient, SNF, or 24/7 home care. Evaluations ongoing. Broached the subject with patient today. Dispo: Admit to med/surg. Family states if rehab is necessary, they would like her to go to [place]. Resident Physician Supervision Note: I interviewed and examined the patient. Discussed with Dr. Kong and agree with findings and plan as documented in the note. Any exceptions or clarifications are listed here: None Documented By: Norm Kinney feeling better knows shes in a [facility] not thrilled with the idea of rehab but also not overtly protesting vitals noted nad breathing unlabored no pallor or icterus AMS - likely mixed metabolic (from now resolved respiratory illness) and toxic ( polypharmacy/med mistakes at home) now improving. continue supportive care, as above, stable for med surg, hopefully rehab soon Resident Tracking Resident Involvement: Resident Care Provided Care Provided: Adult Hospital Medicine (inpatient)
[2017-11-28] MEDS: CALCIUM 600MG + VIT D 400 IU TAB PO SCH (08:55)
[2017-11-28] MEDS: POTASSIUM CHLORIDE 20 MEQ/15 ML UDC PO SCH ×2 (08:55→19:55)
[2017-11-28] MEDS: FUROSEMIDE 20 MG TAB PO SCH (08:56)
[2017-11-28] MEDS: METOPROLOL TARTRATE 50 MG TAB PO SCH ×2 (08:56→19:54)
[2017-11-28] MEDS: AMLODIPINE BESYLATE 5 MG TAB PO SCH (08:57)
[2017-11-28] MEDS: FLUOXETINE HCL 20 MG CAP PO SCH (08:57)
[2017-11-28] MEDS: PANTOprazole SOD 40 MG TAB PO SCH (08:57)
[2017-11-28] MEDS: THIAMINE HCL 100 MG TAB PO SCH (08:57)
[2017-11-28] MEDS: CETIRIZINE HCL 10 MG TAB PO SCH (08:58)
--- NOTE | 2017-11-28 11:08 | Clinical Documentation Query ---
CLINICAL DOCUMENTATION QUERY 82 yo female admitted with encephalopathy. Echo from 2013 shows EF = 55-60%, marked left atrial enlargement, and type 3 diastolic dysfunction. Patient takes Lasix 20mg PO daily at home. For co-morbid documentation purposes: In your clinical opinion is this patient being managed for: ( ) Chronic diastolic CHF ( x ) Not Agree --- can't find documentation of such, last echo was normal ( ) Other explanation of clinical findings (Please Explain) ( ) Unable to determine (Please Define) ( ) Need to Discuss The medical record reflects the following clinical findings, treatment, and risk factors. Clinical Indicators: As above Treatment: Lasix 20mg po, CXR Risk Factors: HTN, A-fib Please clarify and document your clinical opinion in the progress notes and discharge summary. Terms such as "probable", "suspected", "likely", "questionable", "possible", or "still to be ruled out" are acceptable. IF IN AGREEMENT, YOU MUST DOCUMENT ABOVE DIAGNOSTIC STATEMENT IN DAILY PROGRESS NOTES AND DISCHARGE SUMMARY. This document is not part of the patient's record. Thank You, Lay Segura RN [phone]
[2017-11-28] MEDS: RIVAROXABAN TAB 15 MG TAB PO SCH (16:54)
[2017-11-29] VITALS (8 sets, daily range): BP systolic 115–136; BP diastolic 72–87; PULSE 80–91; TEMP 36.3–36.7; O2SAT 92–95
[2017-11-29 06:15] LABS: BASO % 0.4 %; BASO ABS # 0.02 K/uL (0-0.2); EOS % 0.8 %; EOS ABS # 0.04 K/uL (0-0.5); HEMATOCRIT 43.9 % (37-47); HEMOGLOBIN 15.5 g/dL (12.0-16.0); IG# 0.04 K/uL (0.00-0.02); LYMPH % 31.9 %; MEAN CELL VOLUME 94.8 fL (80-100); MEAN CORPUSCULAR HEMOGLOBIN 33.5 pg (25-34); MEAN CORPUSCULAR HGB CONC 35.3 g/dl (32-36); MEAN PLATELET VOLUME 10.3 fL (7.4-10.4); MONO % 16.9 %; NEUT % 49.2 %; NEUT ABS # 2.63 K/uL (1.4-6.5); PLATELET COUNT 190 K/uL (130-400); RED CELL DISTRIBUTION WIDTH CV 14.2 % (11.5-14.5); WHITE BLOOD COUNT 5.33 K/uL (4.8-10.8)
[2017-11-29 06:45] LABS: CALCIUM 8.6 mg/dl (8.5-10.1); CREATININE 0.96 mg/dl (0.60-1.20); POTASSIUM 3.9 mmol/L (3.5-5.1)
--- NOTE | 2017-11-29 07:16 | Family Medicine Progress Note ---
Progress Note Date of Service Nov 29, 2017. Subjective Pt evaluation today including: conversation w/ patient, conversation w/ family (daughter) Found patient sitting in her bedside chair, eating comfortably. She is more alert today, aware of the name of the hospital and current city, but still unsure of the date. Says that she has no current pain or other acute concerns. Daughter has a few direct questions about acute neuro follow-up, related medications, utility of a speech/swallow eval, and acute rehab. Otherwise no other immediate daughter questions. Constitutional: No fever, No chills Respiratory: + cough, No shortness of breath Cardiovascular: No chest pain, No edema Abdomen: No pain, No nausea, No vomiting, No diarrhea Female : No dysuria Medications Current Inpatient Medications Medications (Trade) Dose Ordered Sig/Rebeka Route Start Time Stop Time Status Last Admin Dose Admin Acetaminophen (Tylenol Tab) 650 mg Q4H PRN PO 11/24/17 21:30 12/24/17 21:29 Al Hydrox/Mg Hydrox/Simethicone (Maalox Max Susp) 15 ml Q4H PRN PO 11/24/17 21:30 12/24/17 21:29 Magnesium Hydroxide (Milk Of Magnesia Susp) 30 ml Q12H PRN PO 11/24/17 21:30 12/24/17 21:29 Ondansetron HCl (Zofran Inj) 4 mg Q6H PRN IV 11/24/17 21:30 12/24/17 21:29 Nitroglycerin (Nitrostat Tab) 0.4 mg UD PRN SL 11/24/17 21:30 12/24/17 21:29 Polyethylene (Miralax Powder Packet) 17 gm DAILY PRN PO 11/24/17 21:30 12/24/17 21:29 Amlodipine Besylate (Norvasc Tab) 5 mg DAILY PO 11/25/17 09:00 12/25/17 08:59 11/28/17 08:57 5 MG Calcium/Vitamin D (Caltrate Plus Tab) 1 tab DAILY PO 11/25/17 09:00 12/25/17 08:59 11/28/17 08:55 1 TAB Cetirizine HCl (zyrTEC TAB) 10 mg DAILY PO 11/25/17 09:00 12/25/17 08:59 11/28/17 08:58 10 MG Fluoxetine HCl (Prozac Cap) 20 mg DAILY PO 11/25/17 09:00 12/25/17 08:59 11/28/17 08:57 20 MG Furosemide (Lasix Tab) 20 mg DAILY PO 11/25/17 09:00 12/25/17 08:59 11/28/17 08:56 20 MG Metoprolol Tartrate (Lopressor Tab) 50 mg BID PO 11/25/17 09:00 12/25/17 08:59 11/28/17 19:54 50 MG Rivaroxaban (Xarelto Tab) 15 mg QDD PO 11/25/17 16:45 12/25/17 17:59 11/28/17 16:54 15 MG Pantoprazole Sodium (Protonix Tab) 40 mg DAILY PO 11/25/17 09:00 12/25/17 08:59 11/28/17 08:57 40 MG Potassium Chloride (Callie Ciel Elix) 20 meq BID PO 11/25/17 09:00 12/25/17 08:59 11/28/17 19:55 20 MEQ Miscellaneous (Iv Fluids Completed) 1 ea PRN PRN N/A 11/25/17 00:30 11/25/18 00:29 Thiamine HCl (Vitamin B-1 Tab) 100 mg QAM PO 11/27/17 09:00 12/27/17 08:59 11/28/17 08:57 100 MG Quetiapine Fumarate (seroQUEL TAB) 25 mg BID PRN PO 11/26/17 15:45 12/26/17 15:44 11/27/17 20:49 25 MG Objective Vital Signs Date Time Temp Pulse Resp B/P (MAP) Pulse Ox O2 Delivery O2 Flow Rate FiO2 11/29/17 00:38 36.4 87 18 133/87 (102) 94 Room Air 11/28/17 23:59 Room Air 11/28/17 16:34 86 20 134/76 (95) 97 Room Air 11/28/17 16:00 92 Room Air 11/28/17 12:01 Room Air 11/28/17 12:00 Room Air 11/28/17 12:00 Room Air 11/28/17 10:56 36.3 85 20 134/82 (99) 92 Room Air 11/28/17 08:00 Room Air 11/28/17 08:00 Room Air 11/28/17 07:34 36.4 88 20 118/79 (92) 92 Room Air Physical Exam Notes: General Appearance: Awake, oriented to name + + "[facility] " in [place] + roughly why she's here, but not aware of date, appears comfortable in general, in NAD. CV: +S1S2 irregularly irregular, no murmur. Pulm: Clear to auscultation throughout. Abdomen: +BS, soft, non-tender, non-distended. Extremities: No pedal edema or calf tenderness. Eating with utensils without difficulty, can walk to the bathroom with assistance. Neuro: Moving all extremities. See 'general' above. Skin: Healing left fifth digit lesion. Lines: PIV. Laboratory Results 11/29/17 05:56 Red Blood Count 4.63, Mean Corpuscular Volume 94.8, Mean Corpuscular Hemoglobin 33.5, Mean Corpuscular Hemoglobin Concent 35.3, Mean Platelet Volume 10.3, Neutrophils (%) (Auto) 49.2, Lymphocytes (%) (Auto) 31.9, Monocytes (%) (Auto) 16.9, Eosinophils (%) (Auto) 0.8, Basophils (%) (Auto) 0.4, Neutrophils # (Auto ) 2.63, Lymphocytes # (Auto) 1.70, Monocytes # (Auto) 0.90, Eosinophils # (Auto ) 0.04, Basophils # (Auto) 0.02 11/29/17 05:56 Test 11/29/17 05:56 White Blood Count 5.33 K/uL (4.8-10.8) Red Blood Count 4.63 M/uL (4.2-5.4) Hemoglobin 15.5 g/dL (12.0-16.0) Hematocrit 43.9 % (37-47) Mean Corpuscular Volume 94.8 fL (80-100) Mean Corpuscular Hemoglobin 33.5 pg (25-34) Mean Corpuscular Hemoglobin Concent 35.3 g/dl (32-36) Platelet Count 190 K/uL (130-400) Mean Platelet Volume 10.3 fL (7.4-10.4) Neutrophils (%) (Auto) 49.2 % Lymphocytes (%) (Auto) 31.9 % Monocytes (%) (Auto) 16.9 % Eosinophils (%) (Auto) 0.8 % Basophils (%) (Auto) 0.4 % Neutrophils # (Auto) 2.63 K/uL (1.4-6.5) Lymphocytes # (Auto) 1.70 K/uL (1.2-3.4) Monocytes # (Auto) 0.90 K/uL (0.11-0.59) Eosinophils # (Auto) 0.04 K/uL (0-0.5) Basophils # (Auto) 0.02 K/uL (0-0.2) RDW Standard Deviation 49.0 fL (36.4-46.3) RDW Coefficient of Variation 14.2 % (11.5-14.5) Immature Granulocyte % (Auto) 0.8 % Immature Granulocyte # (Auto) 0.04 K/uL (0.00-0.02) Anion Gap 8.0 mmol/L (3-11) Est Creatinine Clear Calc Drug Dose 43.9 ml/min Estimated GFR () 64.3 Estimated GFR (Non- 55.5 BUN/Creatinine Ratio 20.9 (10-20) Calcium Level 8.6 mg/dl (8.5-10.1) Assessment and Plan 82 yo female admitted on [id number] due to concerns by family members for altered mental status. PMH: Afib, HTN, "heart disease", "kidney disease", "stomach problems", hiatal hernia, s/p hysterectomy and cataract surgery. Concern for altered mental status vs worsening dementia vs acute delirium: Patient continues to improve in awareness. No new focal neuro deficits. From further family discussion, source may have been taking a couple too many ativan the day of acute worsening. Since stopped this. - Neurology consulted, see their full recommendations in their note. Plan for one month f/u with them. - Will hold off on starting aricept while acute delirium has not fully resolved. - Will continue seroquel prn. - No obvious evidence of dysphagia or other speech/swallow issues outside of word-finding with her dementia. Recommended they can pursue further speech/ swallow eval at the rehab facility if family concerns persist (sooner if any new symptoms). Urinalysis findings: Question of recent urinary frequency. UA negative for WBCs but a couple RBCs and lots of epithelial cells. 1+ bacteria as well. Was started briefly empirically on ceftriaxone, but that was stopped when 29Mar UCx had no pathological growth. Hypokalemia: Here K 2.8. Repleted. Is on home daily lasix. Here started on KCl 20 mEq PO BID. Monitoring. - May benefit from ongoing KCl supplementation at home. Atrial fibrillation: History of same, noted on admission as well. On home lopressor 50 BID and xarelto 15 daily. Patient may have recently missed a dose. HTN: On home amlodipine 5 mg daily and lasix 20 mg daily. Depression: On home prozac 20 daily. Insomnia: At home is on scheduled ativan 0.5 mg PO q HS as well as prn anxiety/ agitation. Stopped this here due to mental status concerns. Environmental allergies: On home cetirizine 10 mg daily. Code status: Full code. Diet: AHA. DVT prophy: Xarelto. PT/OT: PT recommended further inpatient eval as her mental status improved. OT recommended either inpatient, SNF, or 24/ home care. Evaluations ongoing. Dispo: Admit to med/surg. Working towards acute rehab upon hospital discharge. Family would like her to go to [place]. Resident Physician Supervision Note: I interviewed and examined the patient. Discussed with Dr. Kong and agree with findings and plan as documented in the note. Any exceptions or clarifications are listed here: None Documented By: Norm Kinney no new HPI or ROS vitals noted nad breathing unlabored no pallor or icterus metabolic encephalopathy superimpsoed on moderate dementia - would be best served at SNF but [employer] won't allow. family to appeal Resident Tracking Resident Involvement: Resident Care Provided Care Provided: Adult Hospital Medicine (inpatient)
[2017-11-29] MEDS: FLUOXETINE HCL 20 MG CAP PO SCH (09:18)
[2017-11-29] MEDS: METOPROLOL TARTRATE 50 MG TAB PO SCH ×2 (09:18→20:12)
[2017-11-29] MEDS: CETIRIZINE HCL 10 MG TAB PO SCH (09:18)
[2017-11-29] MEDS: FUROSEMIDE 20 MG TAB PO SCH (09:18)
[2017-11-29] MEDS: CALCIUM 600MG + VIT D 400 IU TAB PO SCH (09:19)
[2017-11-29] MEDS: PANTOprazole SOD 40 MG TAB PO SCH (09:19)
[2017-11-29] MEDS: THIAMINE HCL 100 MG TAB PO SCH (09:19)
[2017-11-29] MEDS: AMLODIPINE BESYLATE 5 MG TAB PO SCH (09:19)
[2017-11-29] MEDS: POTASSIUM CHLORIDE 20 MEQ/15 ML UDC PO SCH ×2 (09:20→20:12)
--- NOTE | 2017-11-29 13:05 | Progress Note ---
Progress Note Date of Service Nov 29, 2017. Progress Note d/w family insurance denial for skilled - all in agreement home not safe for pt at this time, but goal of supervised home vs [facility] certainly realistic w time and therapy. called for peer to peer, awaiting callback
[2017-11-29] MEDS: RIVAROXABAN TAB 15 MG TAB PO SCH (18:22)
[2017-11-30 07:08] VITALS: BP 138/85; PULSE 102; TEMP 36.3; O2SAT 95
[2017-11-30] MEDS: POTASSIUM CHLORIDE 20 MEQ/15 ML UDC PO SCH ×2 (07:58→20:53)
[2017-11-30] MEDS: CALCIUM 600MG + VIT D 400 IU TAB PO SCH (07:58)
[2017-11-30] MEDS: FUROSEMIDE 20 MG TAB PO SCH (07:59)
[2017-11-30] MEDS: METOPROLOL TARTRATE 50 MG TAB PO SCH ×2 (08:00→20:53)
[2017-11-30] MEDS: AMLODIPINE BESYLATE 5 MG TAB PO SCH (08:00)
[2017-11-30] MEDS: PANTOprazole SOD 40 MG TAB PO SCH (08:01)
[2017-11-30] MEDS: FLUOXETINE HCL 20 MG CAP PO SCH (08:01)
[2017-11-30] MEDS: THIAMINE HCL 100 MG TAB PO SCH (08:02)
[2017-11-30] MEDS: CETIRIZINE HCL 10 MG TAB PO SCH (08:02)
--- NOTE | 2017-11-30 08:02 | Family Medicine Progress Note ---
Progress Note Date of Service Nov 30, 2017. Subjective Pt evaluation today including: conversation w/ patient Found patient awake in bed, smiling. Says "no" when asked if she has any current pain, difficulty breathing, or current complaints. Says she's "okay" otherwise. Constitutional: No fever, No chills Respiratory: No cough, No shortness of breath Cardiovascular: No chest pain Abdomen: No pain, No nausea, No vomiting Medications Current Inpatient Medications Medications (Trade) Dose Ordered Sig/Rebeka Route Start Time Stop Time Status Last Admin Dose Admin Acetaminophen (Tylenol Tab) 650 mg Q4H PRN PO 11/24/17 21:30 12/24/17 21:29 Al Hydrox/Mg Hydrox/Simethicone (Maalox Max Susp) 15 ml Q4H PRN PO 11/24/17 21:30 12/24/17 21:29 Magnesium Hydroxide (Milk Of Magnesia Susp) 30 ml Q12H PRN PO 11/24/17 21:30 12/24/17 21:29 Ondansetron HCl (Zofran Inj) 4 mg Q6H PRN IV 11/24/17 21:30 12/24/17 21:29 Nitroglycerin (Nitrostat Tab) 0.4 mg UD PRN SL 11/24/17 21:30 12/24/17 21:29 Polyethylene (Miralax Powder Packet) 17 gm DAILY PRN PO 11/24/17 21:30 12/24/17 21:29 Amlodipine Besylate (Norvasc Tab) 5 mg DAILY PO 11/25/17 09:00 12/25/17 08:59 11/29/17 09:19 5 MG Calcium/Vitamin D (Caltrate Plus Tab) 1 tab DAILY PO 11/25/17 09:00 12/25/17 08:59 11/29/17 09:19 1 TAB Cetirizine HCl (zyrTEC TAB) 10 mg DAILY PO 11/25/17 09:00 12/25/17 08:59 11/29/17 09:18 10 MG Fluoxetine HCl (Prozac Cap) 20 mg DAILY PO 11/25/17 09:00 12/25/17 08:59 11/29/17 09:18 20 MG Furosemide (Lasix Tab) 20 mg DAILY PO 11/25/17 09:00 12/25/17 08:59 11/29/17 09:18 20 MG Metoprolol Tartrate (Lopressor Tab) 50 mg BID PO 11/25/17 09:00 12/25/17 08:59 11/29/17 20:12 50 MG Rivaroxaban (Xarelto Tab) 15 mg QDD PO 11/25/17 16:45 12/25/17 17:59 11/29/17 18:22 15 MG Pantoprazole Sodium (Protonix Tab) 40 mg DAILY PO 11/25/17 09:00 12/25/17 08:59 11/29/17 09:19 40 MG Potassium Chloride (Callie Ciel Elix) 20 meq BID PO 11/25/17 09:00 12/25/17 08:59 11/29/17 20:12 20 MEQ Miscellaneous (Iv Fluids Completed) 1 ea PRN PRN N/A 11/25/17 00:30 11/25/18 00:29 Thiamine HCl (Vitamin B-1 Tab) 100 mg QAM PO 11/27/17 09:00 12/27/17 08:59 11/29/17 09:19 100 MG Quetiapine Fumarate (seroQUEL TAB) 25 mg BID PRN PO 11/26/17 15:45 12/26/17 15:44 11/27/17 20:49 25 MG Objective Vital Signs Date Time Temp Pulse Resp B/P (MAP) Pulse Ox O2 Delivery O2 Flow Rate FiO2 11/30/17 07:08 36.3 102 18 138/85 (102) 95 Room Air 11/29/17 23:59 95 Room Air 11/29/17 23:58 36.6 91 20 124/85 (98) 93 Room Air 11/29/17 20:13 80 136/79 (98) 95 Room Air 11/29/17 16:09 95 Room Air 11/29/17 15:08 36.3 87 18 115/72 (86) 95 Room Air 11/29/17 10:28 92 Room Air Physical Exam Notes: General Appearance: Awake, oriented to name + + "[facility] " in "[facility]" + roughly why she's here, but not aware of date (1983), appears comfortable in general, in NAD. CV: +S1S2 irregularly irregular, no murmur. Pulm: Clear to auscultation throughout. Abdomen: +BS, soft, non-tender, non-distended. Extremities: No pedal edema or calf tenderness. Neuro: Moving all extremities. See 'general' above. Skin: Healing left fifth digit lesion. Lines: PIV. Assessment and Plan 82 yo female admitted on [id number] due to concerns by family members for altered mental status. PMH: Afib, HTN, "heart disease", "kidney disease", "stomach problems", hiatal hernia, s/p hysterectomy and cataract surgery. Concern for altered mental status vs worsening dementia vs acute delirium: Patient continues to improve in awareness, appears near baseline per family now. No new focal neuro deficits. From further family discussion, source may have been taking a couple too many ativan the day of acute worsening. Since stopped this. - Neurology consulted, see their full recommendations in their note. Plan for one month f/u with them. - Will hold off on starting aricept while acute delirium has not fully resolved. - Will continue seroquel prn. - No obvious evidence of dysphagia or other speech/swallow issues outside of word-finding with her dementia. Recommended they can pursue further speech/ swallow eval at the rehab facility if family concerns persist (sooner if any new symptoms). Urinalysis findings: Question of recent urinary frequency. UA negative for WBCs but a couple RBCs and lots of epithelial cells. 1+ bacteria as well. Was started briefly empirically on ceftriaxone, but that was stopped when UCx had no pathological growth. Hypokalemia: Here K 2.8. Repleted. Is on home daily lasix. Here started on KCl 20 mEq PO BID. Monitoring. - May benefit from ongoing KCl supplementation at home. Atrial fibrillation: History of same, noted on admission as well. On home lopressor 50 BID and xarelto 15 daily. Patient may have recently missed a dose. HTN: On home amlodipine 5 mg daily and lasix 20 mg daily. Depression: On home prozac 20 daily. Insomnia: At home is on scheduled ativan 0.5 mg PO q HS as well as prn anxiety/ agitation. Stopped this here due to mental status concerns. Environmental allergies: On home cetirizine 10 mg daily. Code status: Full code. Diet: AHA. DVT prophy: Xarelto. PT/OT: PT recommended further inpatient eval as her mental status improved. OT recommended either inpatient, SNF, or 24/7 home care. Evaluations ongoing. Dispo: Admit to med/surg. Still working towards acute rehab upon hospital discharge. Family would like her to go to [place]. Resident Physician Supervision Note: I interviewed and examined the patient. Discussed with Dr. Kong and agree with findings and plan as documented in the note. Any exceptions or clarifications are listed here: None Documented By: Norm Kinney pt walking halls with therapy d/w son and dtr - appeal process w [employer] feels like they're being given the runaround - dtr faxed all requested info then was told that she sent it to the wrong number despite it being the number that [facility] gave her. then was told it may take several days to process, then up to 3 days for review of appeal. vitals noted nad breathing unlabored no pallor or icterus wlaking without difficulty delirum on dementia (encephalopathy) -stable will likely take time to totally clear -all who have actually seen the patient are in agreement that a skilled level of care at this time would be most approriate for her, with an ultimate goal of home/supervised or [facility]. see yesterday's notes - dr estrada with [facility] who reviewed chart, fixated entirely on her ambulatory status and would not give consideration to pt's entire clinical picture, has firmly denied SNF at this time. family appealing - insurance appears to be (possibly deliberately) stalling the process in what appears to be an unethical attempt at attrition. the difficult part of this situation, however, is that home does not appear to be safest situation for pt --- very real fall or wander off risk even with family supervision; on the other hand staying in the hospital presents its own risks with deconditioning, nosocomial infection, and perpetuating delirium. therefore dr estrada and kalina are truly putting patient at risk for real harm - i made family keenly aware of this. -at this point due to bad risk/benefit balance on both sides, but pt stable in hospital, we will take the situation day to day until hopefully [employer] acts with ethical rather than financial motives, or we see that this will not occur and we cautiously, with as much support as can be arrranged, work to a home dispo - for now her discharge will be open ended, taken day to day, based on how the family appeal process progresses. Resident Tracking Resident Involvement: Resident Care Provided Care Provided: Adult Hospital Medicine (inpatient)
[2017-11-30 16:02] VITALS: O2SAT 95
[2017-11-30 16:18] VITALS: BP 121/74; PULSE 79; TEMP 36.8; O2SAT 96
[2017-11-30] MEDS: RIVAROXABAN TAB 15 MG TAB PO SCH (16:59)
[2017-12-01 00:16] VITALS: BP 120/78; PULSE 84; TEMP 36.7; O2SAT 94
[2017-12-01 06:59] LABS: BASO % 0.3 %; BASO ABS # 0.02 K/uL (0-0.2); EOS % 0.8 %; EOS ABS # 0.05 K/uL (0-0.5); HEMATOCRIT 42.6 % (37-47); HEMOGLOBIN 14.5 g/dL (12.0-16.0); IG# 0.06 K/uL (0.00-0.02); LYMPH % 23.3 %; LYMPH ABS # 1.54 K/uL (1.2-3.4); MEAN CELL VOLUME 96.2 fL (80-100); MEAN CORPUSCULAR HEMOGLOBIN 32.7 pg (25-34); MEAN PLATELET VOLUME 10.2 fL (7.4-10.4); MONO % 14.8 %; MONO ABS # 0.98 K/uL (0.11-0.59); NEUT % 59.9 %; NEUT ABS # 3.96 K/uL (1.4-6.5); PLATELET COUNT 254 K/uL (130-400); RED CELL DISTRIBUTION WIDTH CV 14.3 % (11.5-14.5); RED CELL DISTRIBUTION WIDTH SD 50.7 fL (36.4-46.3); WHITE BLOOD COUNT 6.61 K/uL (4.8-10.8)
[2017-12-01 07:10] VITALS: BP 124/74; PULSE 101; TEMP 36.6; O2SAT 94
[2017-12-01 07:30] LABS: CALCIUM 8.6 mg/dl (8.5-10.1); CREATININE 1.02 mg/dl (0.60-1.20)
[2017-12-01] MEDS: POTASSIUM CHLORIDE 20 MEQ/15 ML UDC PO SCH ×2 (07:48→20:27)
[2017-12-01] MEDS: CALCIUM 600MG + VIT D 400 IU TAB PO SCH (07:48)
[2017-12-01] MEDS: METOPROLOL TARTRATE 50 MG TAB PO SCH ×2 (07:48→20:27)
[2017-12-01] MEDS: AMLODIPINE BESYLATE 5 MG TAB PO SCH (07:48)
[2017-12-01] MEDS: FUROSEMIDE 20 MG TAB PO SCH (07:48)
[2017-12-01] MEDS: PANTOprazole SOD 40 MG TAB PO SCH (07:48)
[2017-12-01] MEDS: CETIRIZINE HCL 10 MG TAB PO SCH (07:49)
[2017-12-01] MEDS: FLUOXETINE HCL 20 MG CAP PO SCH (07:49)
[2017-12-01] MEDS: THIAMINE HCL 100 MG TAB PO SCH (07:49)
--- NOTE | 2017-12-01 07:49 | Family Medicine Progress Note ---
Progress Note Date of Service Dec 01, 2017. Subjective Pt evaluation today including: conversation w/ patient Found patient sitting in her bedside chair, the most alert I have seen her thus far. Greeted me good morning, is aware of where she is, the full date, and why she is here. She says she is overall feeling "okay" and would like to "go home " as soon as she can. She denies any focal pains or other concerns. Constitutional: No fever, No chills Respiratory: No cough, No shortness of breath Cardiovascular: No chest pain, No edema Abdomen: No pain, No nausea, No vomiting Medications Current Inpatient Medications Medications (Trade) Dose Ordered Sig/Rebeka Route Start Time Stop Time Status Last Admin Dose Admin Acetaminophen (Tylenol Tab) 650 mg Q4H PRN PO 11/24/17 21:30 12/24/17 21:29 Al Hydrox/Mg Hydrox/Simethicone (Maalox Max Susp) 15 ml Q4H PRN PO 11/24/17 21:30 12/24/17 21:29 Magnesium Hydroxide (Milk Of Magnesia Susp) 30 ml Q12H PRN PO 11/24/17 21:30 12/24/17 21:29 Ondansetron HCl (Zofran Inj) 4 mg Q6H PRN IV 11/24/17 21:30 12/24/17 21:29 Nitroglycerin (Nitrostat Tab) 0.4 mg UD PRN SL 11/24/17 21:30 12/24/17 21:29 Polyethylene (Miralax Powder Packet) 17 gm DAILY PRN PO 11/24/17 21:30 12/24/17 21:29 Amlodipine Besylate (Norvasc Tab) 5 mg DAILY PO 11/25/17 09:00 12/25/17 08:59 11/30/17 08:00 5 MG Calcium/Vitamin D (Caltrate Plus Tab) 1 tab DAILY PO 11/25/17 09:00 12/25/17 08:59 11/30/17 07:58 1 TAB Cetirizine HCl (zyrTEC TAB) 10 mg DAILY PO 11/25/17 09:00 12/25/17 08:59 11/30/17 08:02 10 MG Fluoxetine HCl (Prozac Cap) 20 mg DAILY PO 11/25/17 09:00 12/25/17 08:59 11/30/17 08:01 20 MG Furosemide (Lasix Tab) 20 mg DAILY PO 11/25/17 09:00 12/25/17 08:59 11/30/17 07:59 20 MG Metoprolol Tartrate (Lopressor Tab) 50 mg BID PO 11/25/17 09:00 12/25/17 08:59 11/30/17 20:53 50 MG Rivaroxaban (Xarelto Tab) 15 mg QDD PO 11/25/17 16:45 12/25/17 17:59 11/30/17 16:59 15 MG Pantoprazole Sodium (Protonix Tab) 40 mg DAILY PO 11/25/17 09:00 12/25/17 08:59 11/30/17 08:01 40 MG Potassium Chloride (Callie Ciel Elix) 20 meq BID PO 11/25/17 09:00 12/25/17 08:59 11/30/17 20:53 20 MEQ Miscellaneous (Iv Fluids Completed) 1 ea PRN PRN N/A 11/25/17 00:30 11/25/18 00:29 Thiamine HCl (Vitamin B-1 Tab) 100 mg QAM PO 11/27/17 09:00 12/27/17 08:59 11/30/17 08:02 100 MG Quetiapine Fumarate (seroQUEL TAB) 25 mg BID PRN PO 11/26/17 15:45 12/26/17 15:44 11/27/17 20:49 25 MG Objective Vital Signs Date Time Temp Pulse Resp B/P (MAP) Pulse Ox O2 Delivery O2 Flow Rate FiO2 12/01/17 07:10 36.6 101 20 124/74 (91) 94 Room Air 12/01/17 00:16 36.7 84 20 120/78 (92) 94 Room Air 11/30/17 23:59 Room Air 11/30/17 16:18 36.8 79 18 121/74 (90) 96 Room Air 11/30/17 16:02 95 Room Air Physical Exam Notes: General Appearance: Awake, alert and oriented x 3, appears comfortable in general, in NAD. CV: +S1S2 irregularly irregular, no murmur. Pulm: Clear to auscultation throughout. Abdomen: +BS, soft, non-tender, non-distended. Extremities: No pedal edema or calf tenderness. Neuro: Moving all extremities. See 'general' above. Lines: PIV. Laboratory Results 12/01/17 06:26 Red Blood Count 4.43, Mean Corpuscular Volume 96.2, Mean Corpuscular Hemoglobin 32.7, Mean Corpuscular Hemoglobin Concent 34.0, Mean Platelet Volume 10.2, Neutrophils (%) (Auto) 59.9, Lymphocytes (%) (Auto) 23.3, Monocytes (%) (Auto) 14.8, Eosinophils (%) (Auto) 0.8, Basophils (%) (Auto) 0.3, Neutrophils # (Auto ) 3.96, Lymphocytes # (Auto) 1.54, Monocytes # (Auto) 0.98, Eosinophils # (Auto ) 0.05, Basophils # (Auto) 0.02 12/01/17 06:26 Test 12/01/17 06:26 White Blood Count 6.61 K/uL (4.8-10.8) Red Blood Count 4.43 M/uL (4.2-5.4) Hemoglobin 14.5 g/dL (12.0-16.0) Hematocrit 42.6 % (37-47) Mean Corpuscular Volume 96.2 fL (80-100) Mean Corpuscular Hemoglobin 32.7 pg (25-34) Mean Corpuscular Hemoglobin Concent 34.0 g/dl (32-36) Platelet Count 254 K/uL (130-400) Mean Platelet Volume 10.2 fL (7.4-10.4) Neutrophils (%) (Auto) 59.9 % Lymphocytes (%) (Auto) 23.3 % Monocytes (%) (Auto) 14.8 % Eosinophils (%) (Auto) 0.8 % Basophils (%) (Auto) 0.3 % Neutrophils # (Auto) 3.96 K/uL (1.4-6.5) Lymphocytes # (Auto) 1.54 K/uL (1.2-3.4) Monocytes # (Auto) 0.98 K/uL (0.11-0.59) Eosinophils # (Auto) 0.05 K/uL (0-0.5) Basophils # (Auto) 0.02 K/uL (0-0.2) RDW Standard Deviation 50.7 fL (36.4-46.3) RDW Coefficient of Variation 14.3 % (11.5-14.5) Immature Granulocyte % (Auto) 0.9 % Immature Granulocyte # (Auto) 0.06 K/uL (0.00-0.02) Anion Gap 6.0 mmol/L (3-11) Est Creatinine Clear Calc Drug Dose 41.3 ml/min Estimated GFR () 59.7 Estimated GFR (Non- 51.5 BUN/Creatinine Ratio 19.0 (10-20) Calcium Level 8.6 mg/dl (8.5-10.1) Assessment and Plan 82 yo female admitted on [id number] due to concerns by family members for altered mental status. PMH: Afib, HTN, "heart disease", "kidney disease", "stomach problems", hiatal hernia, s/p hysterectomy and cataract surgery. Concern for altered mental status vs worsening dementia vs acute delirium: Patient continues to improve in awareness, appears near baseline per family now. No new focal neuro deficits. From further family discussion, source may have been taking a couple too many ativan the day of acute worsening. Since stopped this. - Neurology consulted, see their full recommendations in their note. Plan for one month f/u with them. - Will hold off on starting aricept while acute delirium has not fully resolved. - Will continue seroquel prn. - No obvious evidence of dysphagia or other speech/swallow issues outside of word-finding with her dementia. Recommended they can pursue further speech/ swallow eval at the rehab facility if family concerns persist (sooner if any new symptoms). Urinalysis findings: Question of recent urinary frequency. UA negative for WBCs but a couple RBCs and lots of epithelial cells. 1+ bacteria as well. Was started briefly empirically on ceftriaxone, but that was stopped when UCx had no pathological growth. Hypokalemia: Here K 2.8. Repleted. Is on home daily lasix. Here started on KCl 20 mEq PO BID. Monitoring. - May benefit from ongoing KCl supplementation at home. Atrial fibrillation: History of same, noted on admission as well. On home lopressor 50 BID and xarelto 15 daily. Patient may have recently missed a dose. Chronic medical issues: - HTN: On home amlodipine 5 mg daily and lasix 20 mg daily. - Depression: On home prozac 20 daily. - Insomnia: At home is on scheduled ativan 0.5 mg PO q HS as well as prn anxiety /agitation. Stopped this here due to mental status concerns. - Environmental allergies: On home cetirizine 10 mg daily. Social: Will need to work with department of transportation, as patient should not be allowed to drive. Code status: Full code. Diet: AHA. DVT prophy: Xarelto. PT/OT: 04Apr PT noted, "the pt has decreased safety awareness requiring frequent cues during both ambulation trials, the pt is unsteady at times with a slight lateral sway but no loss of balance." OT recommended either inpatient , SNF, or 24/7 home care. Evaluations ongoing. Dispo: Admit to med/surg. Remains in hospital while working towards acute rehab upon hospital discharge. Family would like her to go to [place]. Resident Physician Supervision Note: I interviewed and examined the patient. Discussed with Dr. Kong and agree with findings and plan as documented in the note. Any exceptions or clarifications are listed here: None Documented By: Norm Kinney in bed pleasant nad. not realy able to grasp what's going on. d/w son appeal in process congressional assistance enlisted vitals noted nad breathing unlabored no pallor or icterus delirum on dementia (encephalopathy) -stable will likely take time to totally clear -appealing rehab -all who have actually seen the patient are in agreement that a skilled level of care at this time would be most approriate for her, with an ultimate goal of home/supervised or PC. see yesterday's notes - dr estrada with [facility] who reviewed chart, fixated entirely on her ambulatory status and would not give consideration to pt's entire clinical picture, has firmly denied SNF at this time. family appealing - insurance appears to be (possibly deliberately) stalling the process in what appears to be an unethical attempt at attrition. the difficult part of this situation, however, is that home does not appear to be safest situation for pt --- very real fall or wander off risk even with family supervision; on the other hand staying in the hospital presents its own risks with deconditioning, nosocomial infection, and perpetuating delirium. therefore dr estrada and [facility] are truly putting patient at risk for real harm - i made family keenly aware of this. -at this point due to bad risk/benefit balance on both sides, but pt stable in hospital, we will take the situation day to day until hopefully [employer] acts with ethical rather than financial motives, or we see that this will not occur and we cautiously, with as much support as can be arranged, work to a home dispo - for now her discharge will be open ended, taken day to day, based on how the family appeal process progresses. Resident Tracking Resident Involvement: Resident Care Provided Care Provided: Adult Hospital Medicine (inpatient)
[2017-12-01 15:52] VITALS: BP 119/79; PULSE 95; TEMP 36.6; O2SAT 93
[2017-12-01 16:00] VITALS: O2SAT 93
[2017-12-01] MEDS: RIVAROXABAN TAB 15 MG TAB PO SCH (16:13)
[2017-12-01 23:45] VITALS: BP 122/82; PULSE 80; TEMP 36.8; O2SAT 96
[2017-12-02] VITALS: O2SAT 93
[2017-12-02] MEDS: METOPROLOL TARTRATE 50 MG TAB PO SCH (07:29)
[2017-12-02] MEDS: CETIRIZINE HCL 10 MG TAB PO SCH (07:30)
[2017-12-02] MEDS: PANTOprazole SOD 40 MG TAB PO SCH (07:30)
[2017-12-02] MEDS: THIAMINE HCL 100 MG TAB PO SCH (07:30)
[2017-12-02] MEDS: POTASSIUM CHLORIDE 20 MEQ/15 ML UDC PO SCH (07:30)
[2017-12-02] MEDS: FLUOXETINE HCL 20 MG CAP PO SCH (07:30)
[2017-12-02] MEDS: FUROSEMIDE 20 MG TAB PO SCH (07:30)
[2017-12-02] MEDS: AMLODIPINE BESYLATE 5 MG TAB PO SCH (07:30)
[2017-12-02] MEDS: CALCIUM 600MG + VIT D 400 IU TAB PO SCH (07:30)
[2017-12-02 08:05] VITALS: BP 132/62; PULSE 64; TEMP 36.8; O2SAT 97
--- NOTE | 2017-12-02 09:01 | Family Medicine Progress Note ---
Progress Note Date of Service Dec 02, 2017. Medications Current Inpatient Medications Medications (Trade) Dose Ordered Sig/Rebeka Route Start Time Stop Time Status Last Admin Dose Admin Acetaminophen (Tylenol Tab) 650 mg Q4H PRN PO 11/24/17 21:30 12/24/17 21:29 Al Hydrox/Mg Hydrox/Simethicone (Maalox Max Susp) 15 ml Q4H PRN PO 11/24/17 21:30 12/24/17 21:29 Magnesium Hydroxide (Milk Of Magnesia Susp) 30 ml Q12H PRN PO 11/24/17 21:30 12/24/17 21:29 Ondansetron HCl (Zofran Inj) 4 mg Q6H PRN IV 11/24/17 21:30 12/24/17 21:29 Nitroglycerin (Nitrostat Tab) 0.4 mg UD PRN SL 11/24/17 21:30 12/24/17 21:29 Polyethylene (Miralax Powder Packet) 17 gm DAILY PRN PO 11/24/17 21:30 12/24/17 21:29 Amlodipine Besylate (Norvasc Tab) 5 mg DAILY PO 11/25/17 09:00 12/25/17 08:59 12/02/17 07:30 5 MG Calcium/Vitamin D (Caltrate Plus Tab) 1 tab DAILY PO 11/25/17 09:00 12/25/17 08:59 12/02/17 07:30 1 TAB Cetirizine HCl (zyrTEC TAB) 10 mg DAILY PO 11/25/17 09:00 12/25/17 08:59 12/02/17 07:30 10 MG Fluoxetine HCl (Prozac Cap) 20 mg DAILY PO 11/25/17 09:00 12/25/17 08:59 12/02/17 07:30 20 MG Furosemide (Lasix Tab) 20 mg DAILY PO 11/25/17 09:00 12/25/17 08:59 12/02/17 07:30 20 MG Metoprolol Tartrate (Lopressor Tab) 50 mg BID PO 11/25/17 09:00 12/25/17 08:59 12/02/17 07:29 50 MG Rivaroxaban (Xarelto Tab) 15 mg QDD PO 11/25/17 16:45 12/25/17 17:59 12/01/17 16:13 15 MG Pantoprazole Sodium (Protonix Tab) 40 mg DAILY PO 11/25/17 09:00 12/25/17 08:59 12/02/17 07:30 40 MG Potassium Chloride (Callie Ciel Elix) 20 meq BID PO 11/25/17 09:00 12/25/17 08:59 12/02/17 07:30 20 MEQ Miscellaneous (Iv Fluids Completed) 1 ea PRN PRN N/A 11/25/17 00:30 11/25/18 00:29 Thiamine HCl (Vitamin B-1 Tab) 100 mg QAM PO 11/27/17 09:00 12/27/17 08:59 12/02/17 07:30 100 MG Quetiapine Fumarate (seroQUEL TAB) 25 mg BID PRN PO 11/26/17 15:45 12/26/17 15:44 11/27/17 20:49 25 MG Objective Vital Signs Date Time Temp Pulse Resp B/P (MAP) Pulse Ox O2 Delivery O2 Flow Rate FiO2 12/02/17 08:05 36.8 64 18 132/62 (85) 97 Room Air 12/02/17 00:00 93 Room Air 12/01/17 23:45 36.8 80 18 122/82 (95) 96 Room Air 12/01/17 16:00 93 Room Air 12/01/17 15:52 36.6 95 20 119/79 (92) 93 Room Air 12/01/17 10:12 Room Air Resident Tracking Resident Involvement: Resident Care Provided Care Provided: Adult Hospital Medicine (inpatient)
--- NOTE | 2017-12-02 10:39 | Discharge Instructions ---
Discharge Instructions Date of Service Dec 02, 2017. Admission Reason for Admission: Altered Mental Status Discharge Discharge Diagnosis / Problem: Delirium, low potassium Discharge Goals Goal(s): Increase independence, Improve disease control, Improve nutritional status Activity Recommendations Activity Limitations: resume your previous activity . Instructions / Follow-Up Instructions / Follow-Up You were admitted to the hospital for changes in your mental status, thought to be related to some medication issues (e.g. ativan) that have since been stopped. Please follow up with your primary care provider as soon as possible for: (1) Close post-hospital continuity of care (2) To discuss if you still need the medication quetiapine as needed for anxiety or agitation (3) To recheck your potassium to make sure it is within normal ranges (4) To see if you would benefit from starting a medication called Aricept. We are working on getting you home health services to include penitentiary and home physical therapy + occupational therapy. Unfortunately, due to your underlying diagnosis of dementia, the department of transportation was contacted to advise them you are not safe to drive. Please return to the emergency department if you (or your family) have concerns about acute changes in your mental status as happened this time or for any other emergent medical concerns. Current Hospital Diet Patient's current hospital diet: AHA Diet (Heart Healthy) Discharge Diet Recommended Diet: AHA Diet (Heart Healthy) Pending Studies Studies pending at discharge: no Medical Emergencies . Who to Call and When: Medical Emergencies: If at any time you feel your situation is an emergency, please call 911 immediately. . Non-Emergent Contact Non-Emergency issues call your: Primary Care Provider .
[2017-12-02] MEDS ORDERED: SRQ25 PO (10:41)
[2017-12-02] MEDS ORDERED: POTA20TA16 PO (10:41)
--- NOTE | 2017-12-02 10:50 | Discharge Summary ---
Discharge Summary Date of Service Nov 28, 2017. Discharge Summary Admission Date: Nov 25, 2017 at 16:40 Discharge Date: Dec 02, 2017 Discharge Disposition: Home with services Principal Diagnosis: Delirium Problems/Secondary Diagnoses: - Hypokalemia Immunizations: Have You Had Influenza Vaccine: Yes Influenza Vaccine Date: May 15, 2012 History of Tetanus Vaccine?: No History of Pneumococcal: Yes History of Hepatitis B Vaccine: No Procedures: 24Nov2017 - CHEST ONE VIEW PORTABLE FINDINGS: Lung volumes are normal. Mild cardiomegaly is noted without evidence for pulmonary edema. A suspected large hiatal hernia is noted. This likely accounts for left basilar opacity. The appearance is similar to exam of August 14, 2012. There is no pneumothorax. Blunting of the left costophrenic angle is unchanged. IMPRESSION: 1. No change in appearance of the chest. 2. Large hiatal hernia which likely accounts for left basilar opacity. The appearance is similar to exam of August 14, 2012. 24Nov2017 - HEAD WITHOUT CONTRAST (CT) IMPRESSION: 1. Chronic small vessel ischemic change. No acute intracranial abnormality. 2. 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 24Nov2017 - CAROTID DOPPLER NECK ART IMPRESSION: No hemodynamically significant stenosis seen within the carotid arteries. 24Nov2017 - MRI BRAIN WITHOUT CONTRAST IMPRESSION: 1. No acute intracranial ischemic focus. 2. Considerable cerebellar as well as cerebral atrophy. 3. Considerable chronic small vessel change involving both cerebral hemispheres as well as the cerebellar hemispheres. 26Nov2017 - MRI OF THE BRAIN WITHOUT IV CONTRAST IMPRESSION: 1. No acute intracranial abnormality and no significant change from study performed 2 days previously. 2. Senescent change and remote infarcts as above. 27Nov2017 - TWO VIEW CHEST X-ray IMPRESSION: 1. Mild cardiac enlargement with no acute cardiopulmonary abnormality. 2. Large hiatal hernia. Consultations: 27Nov2017 - Neurology consultation a/p Impression This is a 82-year-old female with acute encephalopathy. Encephalopathy is likely multifactorial. 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 Patient also has signs of mild Parkinson's disease on examination. There is an association with Parkinson's and a greater likelihood of developing dementia. It is unclear the etiology for her acute encephalopathy at this time. Certainly a recent illness could have contributed. In addition even though she has been on many of her medications for a long time, her tolerance or metabolism for some of her medications could have changed and her nightly Ativan could have started to contribute to encephalopathy and delirium. Plan - thiamine level pending. Agree with giving empiric oral thiamine for now. - Continue to avoid medications that can cause worsening encephalopathy and delirium such as Ativan (Benadryl is also another medication that can commonly cause confusion in the elderly). Seroquel available as needed for agitation or severe anxiety. - Could consider starting Aricept 5 mg at bedtime. While typically this only helps to slow down symptoms and memory loss, may have some benefit in the setting of a acute encephalopathy with underlying dementia. - follow-up in neurology clinic as an outpatient in 1 month for further evaluation and treatment for Parkinson's and for cognitive reevaluation. I do not think that she needs to be started on a Parkinson's medication as an inpatient and could complicate or confuse her recovery course trying to add on too many medication at this time. - No additional neurological workup recommended at this time. We will see if patient's mentation improves over time (could take days to weeks if related to meds and illness). If there is any concerns for sudden fluctuations or decompensation of cognition, could consider routine EEG in the future, but I do not think that this is needed at this time. - Cerebral vascular risk factor modifications and recommendations: --- Blood pressure recommendations 130/80-110/70 --- Total cholesterol goal 100- 200 and LDL goal less than 100 --- Hemoglobin A1c goal less than 7 --- Encourage cardiovascular exercise at least 3 times a week for 30 minutes. Medication Reconciliation New Medications: Potassium Ext Rel (Klor-Con) 20 Meq Tabcr 20 MEQ PO DAILY for 14 Days, #28 TAB Quetiapine Fumarate (Quetiapine Fumarate) 25 Mg Tab 25 MG PO BID PRN for Anxiety/Agitation for 10 Days, #20 TAB 0 Refills Continued Medications: Amlodipine (Norvasc) 5 Mg Tab 5 MG PO DAILY, TAB Calcium Carbonate-Vitamin D W/ (Caltrate 600 Plus) 1 Tab Tab 1 TAB PO DAILY, TAB Cetirizine Hcl (Zyrtec) 10 Mg Tab 10 MG PO DAILY, TAB Fluoxetine Hcl (Prozac) 20 Mg Cap 20 MG PO DAILY, CAP Furosemide (Lasix) 20 Mg Tab 20 MG PO DAILY, TAB Lansoprazole (Prevacid) 30 Mg Cap 30 MG PO DAILY, CAP DR/EC Metoprolol Tartrate (Lopressor) 50 Mg Tab 50 MG PO BID, TAB Nitroglycerin (Nitrostat) 0.4 Mg Tab 0.4 MG SL UD PRN, #30 take 1 tab under mouth with chest pain , do not swallow or chew can repeat in 5 mins if symptom persists upto 3 times call doctor for persisted chest pain Rivaroxaban (Xarelto) 15 Mg Tab 15 MG PO DAILY, TAB Discontinued Medications: Benzonatate (Tessalon Perles) 100 Mg Cap 1-2 CAP PO Q4 for 5 Days, #60 CAP Doxycycline Monohydrate (Monodox) 100 Mg Cap 100 MG PO, CAP Lorazepam (Ativan) 0.5 Mg Tab 0.5 MG PO TID PRN, TAB Discharge Exam General Appearance: Awake, alert and oriented x 3, appears comfortable in general, in NAD. CV: +S1S2 irregularly irregular, no murmur. Pulm: Clear to auscultation throughout. Abdomen: +BS, soft, non-tender, non-distended. Extremities: No pedal edema or calf tenderness. Neuro: Moving all extremities. Strength 5/5 and distal sensation intact in all extremities. Has a mild right hand resting tremor. Lines: PIV. Review of Systems: Constitutional: No fever, No chills Respiratory: No cough Cardiovascular: No chest pain, No edema Abdomen: No pain, No nausea, No vomiting, No diarrhea Neurologic: + memory loss (baseline dementia) Hospital Course HPI at time of admission on Nov 24, 2017 at 20:41 Source: patient, family 82F with a PMHx of Atrial Fibrillation on Xarelto p/w change in mental status x 1 day. She is accompanied by two daughters and a granddaughter that are the chief historians. Pt lives on her own and completes all ADLs on her own including driving. Per family daughter is in touch with the pt every day - today they got a call from the patient asking for help to sort medications, when daughter arrived the meds were "all mixed up". Pt has a history of a fall onto some cinders where she sustained a laceration to her left hand. Patient was able to walk into the ER on her own but per daughter she has been more wobbly. - Pt was seen in [facility] a few days ago for a cough and given Doxycycline. - Pt does not contribute much to the HPI. Pt wants to go home. - On review of systems pt does admit to having more urinary frequency than usual. Discharge summary on 02Dec2017 82 yo female admitted on 24Nov2017 due to concerns by family members for altered mental status. PMH: Afib, HTN, "heart disease", "kidney disease", "stomach problems", hiatal hernia, s/p hysterectomy and cataract surgery. Concern for altered mental status vs worsening dementia vs acute delirium: Patient continues to improve in awareness, appears near baseline per family now. No new focal neuro deficits. From further family discussion, source may have been taking a couple too many ativan the day of acute worsening. Since stopped this. Has significantly improved during her hospitalization, to the point that she seems at her baseline per family. - Neurology consulted, see their full recommendations in their note. Plan for one month f/u with them. - Will hold off on starting aricept while acute delirium has not fully resolved. - Will continue seroquel prn. - No obvious evidence of dysphagia or other speech/swallow issues outside of word-finding with her dementia. Recommended they can pursue further speech/ swallow eval via their PCM if family concerns persist (sooner if any new symptoms). Insomnia: At home is on scheduled ativan 0.5 mg PO q HS as well as prn anxiety/ agitation. Stopped this here due to mental status concerns. Switched to seroquel as above, provided small amount as Rx on hospital discharge. Can discuss use going forward with PCM. Urinalysis findings: Question of recent urinary frequency. UA negative for WBCs but a couple RBCs and lots of epithelial cells. 1+ bacteria as well. Was started briefly empirically on ceftriaxone, but that was stopped when UCx had no pathological growth. Hypokalemia: Here K 2.8. Repleted. Is on home daily lasix. Here started on KCl 20 mEq PO BID. Provided Rx for home for same, but would benefit from recheck via PCM as outpatient. Atrial fibrillation: History of same, noted on admission as well. On home lopressor 50 BID and xarelto 15 daily. No acute inpatient changes. Chronic medical issues (no acute changes during hospitalization): - HTN: On home amlodipine 5 mg daily and lasix 20 mg daily. - Depression: On home prozac 20 daily. - Environmental allergies: On home cetirizine 10 mg daily. Social: Submitted paperwork to [place] Department [employer], as patient should not be allowed to drive. Informed patient of same. PT/OT: 04Apr PT noted, "the pt has decreased safety awareness requiring frequent cues during both ambulation trials, the pt is unsteady at times with a slight lateral sway but no loss of balance." OT recommended either inpatient, SNF, or 24/7 home care. At time of hospital discharge, SNF placement was denied by insurance, so plan for d/c home with home health services, intermediate, as well as physical therapy and occupational therapy services. Resident Physician Supervision Note: I interviewed and examined the patient. Discussed with Dr. Kong and agree with findings and plan as documented in the note. Any exceptions or clarifications are listed here: None Documented By: Norm Kinney in bed pleasant nad. not realy able to grasp what's going on. d/w son appeal in process congressional assistance enlisted vitals noted nad breathing unlabored no pallor or icterus delirum on dementia (encephalopathy) -stable will likely take time to totally clear but improving -completed DOT paperwork to pull drivers licence and informed pt no more driving -appealed SNF/rehab - denied both medically and family. appearing to be wrong decision by [employer] but we have no recourse, and as time passes hospital environment will be riskier than home. family aware, support services being set up as best as possible. see notes 4/4, 4/5 in regards to role of insurance company in putting this woman at risk unnecessarily. -home cautiously as we have no other options Total Time Spent: Greater than 30 minutes This includes examination of the patient, discharge planning, medication reconciliation, and communication with other providers. Discharge Instructions Please refer to the electronic Patient Visit Report (Discharge Instructions) for additional information. Additional Copies To Joanne Blas
[2017-12-02 12:12] VITALS: BP 132/62; PULSE 64; TEMP 36.8; O2SAT 97
== END 2017-12-02 12:43 | disposition home health service (06) | DRG 947 ==
LOC: C.EDB 17:41 → C.2T 21:31 → ENRESERV 21:51 → OBSVTOIN 11-25 16:40 → ENRESERV 11-28 13:05 → C.MS4W 11-28 15:48
PROVIDERS: ADMIT Family Medicine; ATTEND Family Medicine
DX: R41.0 Disorientation, unspecified (principal); G93.41 Metabolic encephalopathy; F03.90 Unspecified dementia, unspecified severity, without behavioral disturbance, psychotic disturbance, mood disturbance, and anxiety; E87.6 Hypokalemia; R35.0 Frequency of micturition; R05 Cough; I10 Essential (primary) hypertension; I48.91 Unspecified atrial fibrillation; F32.9 Major depressive disorder, single episode, unspecified; G47.00 Insomnia, unspecified; Z79.01 Long term (current) use of anticoagulants; Z79.899 Other long term (current) drug therapy; Z88.1 Allergy status to other antibiotic agents; Z91.013 Allergy to seafood; Z91.81 History of falling

== ENCOUNTER 2020-02-17 21:50 | Inpatient (IN) ==
[2020-02-17] MEDS ORDERED: cefTRIAXone SODIUM 250 MG/ML IM IM ONE (22:09)
[2020-02-17] MEDS ORDERED: AZITHROMYCIN 250 MG TAB PO ONE (22:09)
--- NOTE | 2020-02-17 23:19 | Emergency Department Note ---
History of Present Illness General Chief complaint: Fall Stated complaint: FALL, RIGHT HIP/PELVIS PAIN Time Seen by Provider: 02/17/20 22:05 Source: patient, family, RN notes reviewed and old records reviewed Mode of arrival: ambulatory Limitations: no limitations History of Present Illness Provider complaint: fall, Rt hip pain Onset (ago): hour(s) 6 Location: pelvis Radiation: non-radiation Severity: moderate Pain Consistency: + intermittent Maximum Pain Intensity: 4 Current Pain Intensity: 4 Quality: + aching Relieved By: + immobilization Exacerbated By: + movement Associated symptoms: + denies other symptoms; no confusion, no chest pain, no diaphoresis, no fever/chills, no headaches, no loss of appetite, no nausea/vomiting, no shortness of breath and no weakness Treatments prior to arrival: other (Tylenol) This is an 84-year-old female who was walking up a hill when she slipped on the grass. This happened approximately 6 hours ago. The patient reports she landed on her right hip. She is already had her left hip replaced. This was done at a hospital in [place]. The patient describes the pain as aching. She took 2 Tylenol for the pain at approximately 7 PM. She does not want anything for the pain here. Not moving the leg makes the pain better however moving the leg makes the pain worse. Home Medications Home Medications Medication Instructions Recorded Confirmed Type amlodipine 5 mg tablet 5 mg PO QAM tab 04/23/19 02/17/20 History epinephrine 0.3 mg/0.3 mL 0.3 ml SUBCUT DIRECTED PRN ea 04/23/19 02/17/20 History injection, auto-injector fluoxetine 20 mg tablet 20 mg PO QAM tab 04/23/19 02/17/20 History furosemide 20 mg tablet 20 mg PO QAM tab 04/23/19 02/17/20 History metoprolol tartrate 50 mg tablet 50 mg PO BID tab 04/23/19 02/17/20 History quetiapine 25 mg tablet 12.5 mg PO HS tab 04/23/19 02/17/20 History rivaroxaban 15 mg tablet 15 mg PO HS tab 04/23/19 02/17/20 History memantine 10 mg tablet 10 mg PO BID 30 Days #60 tab 02/07/20 02/17/20 Rx acetaminophen [Tylenol] 0 mg PO DIRECTED PRN 02/17/20 02/17/20 History calcium carbonate-vitamin D3 1 tab PO QAM 02/17/20 02/17/20 History [Calcium 500 + D] donepezil [Aricept] 10 mg PO HS 02/17/20 02/17/20 History famotidine 20 mg PO QAM 02/17/20 02/17/20 History loratadine 10 mg PO QAM 02/17/20 02/17/20 History risedronate 150 mg PO MONTHLY 02/17/20 02/17/20 History sulfamethoxazole-trimethoprim 1 tab PO BID 02/17/20 02/17/20 History Allergies Allergy/AdvReac Type Severity Reaction Status Date / Time ampicillin Allergy Unknown . Verified 02/17/20 22:11 Fish Containing Products Allergy Unknown Unknown Verified 02/17/20 22:11 nut - unspecified Allergy Unknown . Verified 02/17/20 22:11 shellfish derived Allergy Unknown HIVES Verified 02/17/20 22:11 fish derived Allergy Verified 02/18/20 14:06 latex Allergy Verified 02/17/20 22:11 IMITATION CHEESE Allergy Severe ANAPHYLAXIS Uncoded 02/17/20 22:11 Seafood Allergy Severe Anaphylaxis Uncoded 02/17/20 22:11 Past Med/Surg History Medical History (Updated 02/22/20 @ 23:50 by Evelio Orta MD) Atrial fibrillation Heart disease Hiatal hernia Hip fracture, right HTN (hypertension) Kidney disease Surgical History (Updated 02/20/20 @ 07:25 by Rick Whalen PA-C) H/O: hysterectomy Hx of cataract surgery Social History Preferred Language: Urdu Communication Ability: Effective Beliefs That Will Affect Care: None Current Living Situation: Family Current Living Situation Comment: lives with daughter Miriam Other Information That Helps Us Care for You: No Feels Safe at Home: Yes Safety Concerns: Feels Safe At This Time Smoking Status: Never smoker Do You Dip or Chew Tobacco: No ; Second Hand Exposure: Yes ; Hx Alcohol Use: Yes Alcohol type: wine Hx Substance Use: No Review of Systems A total of 10 systems reviewed and were otherwise negative Physical Exam Vital Signs Vital Signs - 24 hr 02/17/20 21:57 Temperature 36.8 C Temperature Source Oral Pulse Rate 72 Respiratory Rate 20 Respiratory Effort / Characteristics Non-Labored Spontaneous Respiratory Depth Normal Blood Pressure 116/74 Blood Pressure Mean 88 Pulse Oximetry 100 Oxygen Delivery Method Room Air Sepsis Recent Fever Within 48 Hours No Sepsis New/Unexplained Change in Mental Status No Sepsis Action Taken by Nursing No Action Required VITAL SIGNS - Vital signs and nursing notes were reviewed. GENERAL - 84-year-old female appearing stated age who is in no acute distress. Communicates well with provider and answers questions appropriately. SKIN - Without rashes. HEAD - NC/AT. EYES - PERRL with EOMI bilaterally. Sclera anicteric. Palpebral conjunctiva pink and moist with no injection noted. EARS - No deformities of external structures noted on gross examination bilater ally. No pain elicited with palpation of the tragus bilaterally. External auditory canals without discharge or otorrhea. Tympanic membranes pearly sanchez without retraction or bulging. No fluid or purulent material visualized behind the TM. Handle of malleus, umbo, cone of light, pars tensa/flaccid all easily visualized. NOSE - Midline and without cyanosis. No epistaxis or purulent drainage noted. Septum midline without deviation or septal hematoma noted. MOUTH/OROPHARYNX - Without perioral cyanosis. Buccal mucosa pink and moist and without leukoplakia. Tongue midline with equal elevation of palate bilaterally. No tonsillar hypertrophy, erythema, or exudates noted. dentition noted. NECK - Neck with FROM. Supple to palpation. lymphadenopathy noted. No nuchal rigidity. LUNGS - Chest wall symmetric without accessory muscle use, intercostals retractions, or central cyanosis. Normal vesicular breath sounds CTA B/L. No wheezes, rales, or rhonchi appreciated. CARDIAC - RRR with S1/S2. No murmur, rubs, or gallops appreciated. ABDOMEN - Abdominal contour without pulsations or visible masses. BS normoactive all four quadrants. No tenderness, palpable masses, hepatosplenomegaly, or ascites noted. EXTREMITIES - No clubbing or peripheral cyanosis. No pretibial edema present. +3/5 radial, posterior tibial, and dorsalis pedis pulses palpated throughout. +5/5 strength noted in UE/LE bilaterally. Rt Hip: Poor ROM due to pain, knee goor ROM, ankle free from pain NEUROLOGIC - Cranial nerves II through XII grossly intact. Sensory intact to light touch throughout. Patellar reflexes +2/4. PSYCH - A&Ox3 and cooperates fully with examiner. Pt is very pleasant and interacts well with examiner. Course Administered Medications Acetaminophen (Tylenol) 650 mg PO Q4H PRN PRN Reason: pain/fever Stop: 03/19/20 00:59 Last Admin: 02/19/20 06:04 Dose: 650 mg Documented by: [id number] Admin: 02/18/20 04:16 Dose: 650 mg Documented by: [id number] Amlodipine Besylate ([facility]vasc) [facility] [place] Stop: 03/23/20 08:59 Last Admin: 02/22/20 09:03 Dose: 5 mg Documented by: [id number] Cephalexin HCl (Keflex) 500 mg PO BID [facility]; Protocol Stop: 02/24/20 08:59 Last Admin: 02/22/20 22:14 Dose: 500 mg Documented by: [id number] Admin: 02/22/20 09:01 Dose: 500 mg Documented by: [id number] Admin: 02/21/20 21:03 Dose: 500 mg Documented by: [id number] Admin: 02/21/20 08:33 Dose: 500 mg Documented by: [id number] Admin: 02/20/20 21:19 Dose: 500 mg Documented by: [id number] Admin: 02/20/20 10:08 Dose: 500 mg Documented by: [id number] Admin: 02/19/20 21:43 Dose: 500 mg Documented by: [id number] Admin: 02/19/20 08:55 Dose: 500 mg Documented by: [id number] Donepezil HCl (Aricept) 10 mg PO [facility] Stop: 03/20/20 20:59 Last Admin: 02/22/20 22:13 Dose: 10 mg Documented by: [id number] Admin: 02/21/20 21:03 Dose: 10 mg Documented by: [id number] Admin: 02/20/20 21:19 Dose: 10 mg Documented by: [id number] Admin: 02/19/20 21:44 Dose: 10 mg Documented by: [id number] Famotidine (Pepcid) 20 [facility] [place] Stop: 03/20/20 09:59 Last Admin: 02/22/20 09:00 Dose: 20 mg Documented by: [id number] Admin: 02/21/20 08:33 Dose: 20 mg Documented by: [id number] Admin: 02/20/20 11:29 Dose: 20 mg Documented by: [id number] Admin: 02/19/20 12:05 Dose: 20 mg Documented by: [id number] Fluoxetine HCl (Prozac) 20 mg PO QAM [facility] Stop: 03/20/20 09:59 Last Admin: 02/22/20 09:02 Dose: 20 mg Documented by: [id number] Admin: 02/21/20 08:33 Dose: 20 mg Documented by: [id number] Admin: 02/20/20 10:08 Dose: 20 mg Documented by: [id number] Admin: 02/19/20 12:05 Dose: 20 mg Documented by: [id number] Loratadine (Claritin) 10 mg [facility] [place] Stop: 03/20/20 09:59 Last Admin: 02/22/20 09:00 Dose: 10 mg Documented by: [id number] Admin: 02/21/20 08:33 Dose: 10 mg Documented by: [id number] Admin: 02/20/20 11:29 Dose: 10 mg Documented by: [id number] Admin: 02/19/20 12:05 Dose: 10 mg Documented by: [id number] Melatonin (Melatonin) 3 mg PO HS PRN PRN Reason: Sleep Stop: 03/19/20 21:08 Last Admin: 02/18/20 22:19 Dose: 3 mg Documented by: [id number] Memantine (Namenda) 10 mg PO BID [facility] Stop: 03/20/20 09:59 Last Admin: 02/22/20 22:15 Dose: 10 mg Documented by: [id number] Admin: 02/22/20 09:00 Dose: 10 mg Documented by: [id number] Admin: 02/21/20 21:04 Dose: 10 mg Documented by: [id number] Admin: 02/21/20 08:33 Dose: 10 mg Documented by: [id number] Admin: 02/20/20 21:20 Dose: 10 mg Documented by: [id number] Admin: 02/20/20 10:08 Dose: 10 mg Documented by: [id number] Admin: 02/19/20 21:44 Dose: 10 mg Documented by: [id number] Admin: 02/19/20 12:05 Dose: 10 mg Documented by: [id number] Metoprolol Tartrate (Lopressor) 50 mg PO BID [facility] Stop: 03/23/20 08:59 Last Admin: 06/26/20 22:14 Dose: 50 mg Documented by: [id number] Admin: 02/22/20 09:03 Dose: 50 mg Documented by: [id number] Multivitamins/Minerals (Caltrate Plus) 1 [facility] [place] Stop: 03/21/20 08:59 Last Admin: 02/22/20 09:01 Dose: 1 tab Documented by: [id number] Admin: 02/21/20 08:33 Dose: 1 tab Documented by: [id number] Admin: 02/20/20 10:08 Dose: 1 tab Documented by: [id number] Quetiapine Fumarate (Seroquel) 12.5 mg PO [facility] Stop: 03/20/20 20:59 Last Admin: 02/22/20 22:15 Dose: 12.5 mg Documented by: [id number] Admin: 02/21/20 21:02 Dose: 12.5 mg Documented by: [id number] Admin: 02/20/20 21:19 Dose: 12.5 mg Documented by: [id number] Admin: 02/19/20 21:41 Dose: 12.5 mg Documented by: [id number] Rivaroxaban (Xarelto) 15 mg PO [facility] Stop: 03/20/20 20:59 Last Admin: 02/22/20 22:15 Dose: 15 mg Documented by: [id number] Admin: 02/21/20 21:04 Dose: 15 mg Documented by: [id number] Admin: 02/20/20 21:19 Dose: 15 mg Documented by: [id number] Admin: 02/19/20 21:40 Dose: 15 mg Documented by: [id number] Senna/Docusate Sodium (Senokot S) 2 tab PO [facility] Stop: 03/19/20 20:59 Last Admin: 02/22/20 22:15 Dose: Not Given Documented by: [id number] Admin: 02/21/20 21:01 Dose: Not Given Documented by: [id number] Admin: 02/20/20 21:20 Dose: Not Given Documented by: [id number] Admin: 02/19/20 21:52 Dose: 2 tab Documented by: [id number] Admin: 02/18/20 20:35 Dose: 2 tab Documented by: [id number] Discontinued Medications Azithromycin (Zithromax) 1,000 mg PO NOW ONE Stop: 02/17/20 22:10 Last Admin: 02/17/20 22:38 Dose: Not Given Documented by: [id number] Bacitracin (Bacitracin) Confirm Administered Dose 50,000 units .ROUTE .[facility] ONE Stop: 02/18/20 11:54 Last Admin: 02/18/20 15:36 Dose: 50,000 units Documented by: [id number] Bupivacaine HCl (Marcaine 0.5% Mpf) Confirm Administered Dose 30 ml .ROUTE .[facility] ONE Stop: 02/18/20 11:54 Last Admin: 02/18/20 16:07 Dose: 30 ml Documented by: [id number] Ceftriaxone Sodium (Rocephin) 250 mg IM NOW ONE Stop: 02/17/20 22:10 Last Admin: 02/17/20 22:37 Dose: Not Given Documented by: [id number] Ciprofloxacin (Cipro) 500 mg PO DAILY [facility] Stop: 02/28/20 08:59 Last Admin: 02/18/20 12:21 Dose: 500 mg Documented by: [id number] Ciprofloxacin (Cipro) 500 mg PO BID [facility]; Protocol Stop: 02/28/20 20:59 Last Admin: 02/18/20 20:34 Dose: 500 mg Documented by: [id number] Epinephrine HCl (Epinephrine) Confirm Administered Dose 1 mg .ROUTE .[facility] ONE Stop: 02/18/20 11:54 Last Admin: 02/18/20 15:37 Dose: 0.15 mg Documented by: [id number] Ergocalciferol (Vitamin D2) 50,000 units PO ONE ONE Stop: 02/19/20 16:01 Last Admin: 02/19/20 17:45 Dose: 50,000 units Documented by: [id number] Lactated Ringer's (Lr) 1,000 mls @ 125 mls/hr IV .Q8H [facility] Stop: 03/19/20 01:14 Last Infusion: 02/19/20 06:35 Dose: 0 mls/hr Documented by: [id number] Admin: 02/18/20 23:54 Dose: 125 mls/hr Documented by: [id number] Infusion: 02/18/20 23:54 Dose: 125 mls/hr Documented by: [id number] Infusion: 02/18/20 22:17 Dose: 125 mls/hr Documented by: [id number] Admin: 02/18/20 17:30 Dose: 125 mls/hr Documented by: [id number] Infusion: 02/18/20 14:10 Dose: 0 mls/hr Documented by: [id number] Admin: 02/18/20 11:01 Dose: Not Given Documented by: [id number] Admin: 02/18/20 09:00 Dose: 125 mls/hr Documented by: [id number] Cefazolin Sodium (Ancef 1000mg) 1,000 mg in 7.5 mls @ 2.5 mls/min IV PREOP ONE Stop: 02/18/20 16:02 Last Admin: 02/18/20 14:51 Dose: 2.5 mls/min Documented by: [id number] Sodium Chloride (Nss 1000ml) 500 mls @ 999 mls/hr IV .Q31M ONE Stop: 02/20/20 12:11 Last Infusion: 02/20/20 13:13 Dose: 0 mls/hr Documented by: [id number] Admin: 02/20/20 11:56 Dose: 999 mls/hr Documented by: [id number] Metoprolol Tartrate (Lopressor) 50 mg PO BID [facility] Stop: 03/19/20 08:59 Last Admin: 02/20/20 10:22 Dose: Not Given Documented by: [id number] Admin: 02/19/20 21:47 Dose: 50 mg Documented by: [id number] Admin: 02/19/20 08:55 Dose: 50 mg Documented by: [id number] Admin: 02/18/20 20:34 Dose: 50 mg Documented by: [id number] Admin: 02/18/20 11:12 Dose: 50 mg Documented by: [id number] Metoprolol Tartrate (Lopressor) 25 mg PO BID [facility] Stop: 03/22/20 08:59 Last Admin: 02/21/20 21:04 Dose: 25 mg Documented by: [id number] Admin: 02/21/20 08:36 Dose: 25 mg Documented by: [id number] Ondansetron HCl (Zofran) 4 mg IV NOW STA Stop: 02/17/20 23:48 Last Admin: 02/18/20 01:57 Dose: Not Given Documented by: [id number] Thrombin (Recothrom Kit) Confirm Administered Dose 20,000 units .ROUTE .[facility] ONE Stop: 02/18/20 11:54 Last Admin: 02/18/20 16:07 Dose: Not Given Documented by: [id number] Valacyclovir HCl (Valtrex) 2,000 mg PO NOW ONE Stop: 02/20/20 12:31 Last Admin: 02/20/20 13:22 Dose: 2,000 mg Documented by: [id number] Valacyclovir HCl (Valtrex) 2,000 mg PO BID [facility] Stop: 02/20/20 21:01 Last Admin: 02/20/20 21:19 Dose: 2,000 mg Documented by: [id number] Medical Decision Making Differential Diagnosis Fracture, subluxation, dislocation, contusion, ligamentous injury, neurovascular, compartment syndrome, rhabdomyolysis, as well as other pathologies. Medical Records Attestation: I reviewed the patient's medical records. Home Medications Current Medication List: was personally reviewed by me Laboratory Data Attestation: I reviewed the patient's lab results. Result diagrams: 02/22/20 05:23 02/22/20 05:23 Lab Results 02/18/20 02/18/20 02/18/20 Range/Units 00:14 00:14 00:14 WBC 13.37 H (4.8-10.8) K/uL RBC 4.46 (4.2-5.4) M/uL Hgb 13.9 (12.0-16.0) g/dL Hct 41.2 (37-47) % MCV 92.4 (80-100) fL MCH 31.2 (25-34) pg MCHC 33.7 (32-36) g/dL RDW Std Deviation 53.4 H (36.4-46.3) fL RDW Coeff of Kathi 15.9 H (11.5-14.5) % Plt Count 196 (130-400) K/uL MPV 9.9 (7.4-10.4) fL Immature Gran % (Auto) 0.3 % Neut % (Auto) 84.1 % Lymph % (Auto) 6.3 % [place] % (Auto) 9.1 % Eos % (Auto) 0.1 % Baso % (Auto) 0.1 % Immature Gran # (Auto) 0.04 H (0.00-0.02) K/uL Neut # (Auto) 11.25 H (1.4-6.5) K/uL Lymph # (Auto) 0.84 L (1.2-3.4) K/uL [place] # (Auto) 1.21 H (0.11-0.59) K/uL Eos # (Auto) 0.01 (0-0.5) K/uL Baso # (Auto) 0.02 (0-0.2) K/uL PT 12.7 H (9.0-12.0) Seconds INR 1.2 H (0.9-1.1) APTT 30.5 (21.0-31.0) Seconds PTT Ratio 1.1 Sodium 135 L (136-145) mmol/L Potassium 4.2 (3.5-5.1) mmol/L Chloride 102 (98-107) mmol/L Carbon Dioxide 26 (21-32) mmol/L Anion Gap 7.0 (3-11) BUN 29 H (7-18) mg/dl Creatinine 1.52 H (0.6-1.2) mg/dl Est Cr Clr Drug Dosing Not Reportable Est GFR ( Amer) 36.4 Est GFR (Non-Af Amer) 31.4 BUN/Creatinine Ratio 18.8 (10-20) Glucose 150 H (70-99) mg/dl Calcium 9.2 (8.5-10.1) mg/dl Imaging Data My Impression: A 2 view of the right femur was reviewed by me does not show any evidence of acute fracture dislocation or subluxation A 2 view of the pelvis was interpreted by me does not show any evidence of acute fracture dislocation or subluxation. CT the pelvis: Acute right subcapital femoral head neck femur fracture with mild impaction and apex anterior angulation No dislocation No pelvic hematoma identified Partially imaged left hip replacement noted Visualized lower lumbar spondylosis discogenic change 5.4 cm cystic lesion posterior right pelvis may be ovarian diverticulosis MDM Narrative Patient was seen and evaluated as above in room A4. Review was performed of nursing notes and vital signs. I did review pertinent previous visits and patient history. After obtaining a thorough history and physical examination the above work up was performed. This is a [place] system downtime chart. This is an 84-year-old female who presents the emergency department complaining of right hip pain. Using shared medical decision making with the patient and family decision was made to send patient for x-rays however these were indeterminate of a hip fracture. At this point I gave the patient the option of having a CAT scan done which she would like. The CAT scan is concerning for acute right subcapital femoral head neck fracture An order was placed for continuous cardiac monitoring. The monitor shows a rate of 72 with Normal Sinus rhythm. The patient was evaluated during the global COVID-19 pandemic, and that diagnosis was suspected/considered upon their initial presentation. Their evaluation, treatment and testing was consistent with current guidelines for patients who present with complaints or symptoms that may be related to COVID- 19. Impression & Plan Fall, Closed hip fracture Discharge Plan Visit Data *Final* Discharge Date/Time: 02/18/20 01:58 Chief Complaint: Fall Stated Complaint: FALL, RIGHT HIP/PELVIS PAIN ED Provider: Evelio Orta Discharge Problem: Fall, Closed hip fracture Patient Disposition: Admitted As Inpatient Discharge Instructions Interventions: ED Discharge Assessment Last Done: 02/18/20 01:58 Discharge Problem: Fall Qualifiers: Encounter type: initial encounter Qualified Code(s): W19.XXXA - Unspecified fall, initial encounter Closed hip fracture Qualifiers: Encounter type: initial encounter Laterality: right Qualified Code(s): S72.001A - Fracture of unspecified part of neck of right femur, initial encounter for closed fracture
[2020-02-17] MEDS ORDERED: ONDANSETRON INJ 2 MG/ML 2 ML VIAL IV STA (23:47)
[2020-02-17] MEDS ORDERED: HYDROmorphone INJ 0.5 MG/0.5 ML SYR IV PRN (23:47)
[2020-02-18 00:26] LABS: Basophils # (auto) 0.02 K/uL (0-0.2); Basophils % (auto) 0.1 %; Eosinophils # (auto) 0.01 K/uL (0-0.5); Eosinophils % (auto) 0.1 %; Hematocrit (blood only) 41.2 % (37-47); Hemoglobin 13.9 g/dL (12.0-16.0); Immature Granulocytes # (auto) 0.04 K/uL (0.00-0.02); Immature Granulocytes % (auto) 0.3 %; Lymphocytes # (auto) 0.84 K/uL (1.2-3.4); Lymphocytes % (auto) 6.3 %; Mean Corpuscular Hemoglobin 31.2 pg (25-34); Mean Corpuscular Hgb Conc 33.7 g/dL (32-36); Mean Corpuscular Volume 92.4 fL (80-100); Mean Platelet Volume 9.9 fL (7.4-10.4); Monocytes # (auto) 1.21 K/uL (0.11-0.59); Monocytes % (auto) 9.1 %; Neutrophils # (auto) 11.25 K/uL (1.4-6.5); Neutrophils % (auto) 84.1 %; Platelet Count 196 K/uL (130-400); RDW Coefficient of Variation 15.9 % (11.5-14.5); RDW Standard Deviation 53.4 fL (36.4-46.3); Red Blood Count 4.46 M/uL (4.2-5.4); White Blood Count 13.37 K/uL (4.8-10.8)
[2020-02-18 00:39] LABS: INR 1.2 (0.9-1.1); Partial Thromboplastin Ratio 1.1; Partial Thromboplastin Time 30.5 Seconds (21.0-31.0); Prothrombin Time 12.7 Seconds (9.0-12.0)
[2020-02-18 00:47] LABS: BUN Creatinine Ratio 18.8 (10-20); Blood Urea Nitrogen 29 mg/dl (7-18); Calcium 9.2 mg/dl (8.5-10.1); Carbon Dioxide 26 mmol/L (21-32); Chloride 102 mmol/L (98-107); Est GFR (African American) 36.4; Est GFR (Non-African American) 31.4; Glucose 150 mg/dl (70-99); Potassium 4.2 mmol/L (3.5-5.1); Sodium 135 mmol/L (136-145)
[2020-02-18] MEDS ORDERED: ONDANSETRON INJ 2 MG/ML 2 ML VIAL IV PRN ×2 (01:00→13:29)
[2020-02-18] MEDS ORDERED: ALUMINUM/MAGNESIUM SUSP 30 ML UDC PO PRN (01:00)
[2020-02-18] MEDS ORDERED: POLYETHYLENE (MIRALAX) 17 GM PACK PO PRN (01:00)
[2020-02-18] MEDS ORDERED: MAGNESIUM HYDROXIDE SUSP 30 ML UDC PO PRN ×2 (01:00→01:05)
[2020-02-18] MEDS ORDERED: NALOXONE HCL 0.4 MG/1 ML VIAL/CARP IV PRN ×2 (01:05→17:46)
[2020-02-18] MEDS ORDERED: HYDROmorphone INJ 0.5 MG/0.5 ML SYR IV PRN (01:09)
--- NOTE | 2020-02-18 01:37 | History & Physical Report ---
Date of Service February 18, 2020 Assessment & Plan (1) Hip fracture, right: 84 yo F w/ pMHx. of atrial fibrillation on Xarelto last taken in on 02/15 in the evening, prior left hip fracture s/p repair 5 months prior. Likely will need surgical repair of subcapital head/neck fracture. Mechanical fall with right subcapital head/neck fracture - NPO for possible surgical intervention - holding Xarelto - type and cross ordered - consulted orthopedics - consulted anesthesia - CXR, and EKG taken awaiting final reads - holding Risedronate - pain management with Tylenol and Dilaudid for moderate to severe pain MIGUEL, potentially prerenal on chronic kidney disease - Cr. 1.52 - IVF 125 ml/hr LR - f/u AM BMP Atrial fibrillation - holding Xarelto for likely surgical repair of hip fracture HTN - holding antihypertensive medications at this time - continue to monitor and treat Pre-operative evaluation - RCRI class 1 risk DVT: contraindicated Diet: NPO, IVF LR 120ml/hr (2) HTN (hypertension): (3) Atrial fibrillation: History of Present Illness Chief Complaint: right hip pain after fall Primary Care Provider: Joanne Blas Nat Villavicencio is a 84 yo female who presented to the emergency after falling when she was walking up a hill in the wet grass. She landed on her right hip. She was camping with her family when that happened. She had previously had a hip fracture in her left hip that was surgically repaired in [place]. Her hip pain is 4/10 when not moving and 10/10 when she is walking on it. The pain is radiating down her leg. She is on Xarelto for atrial fibrillation. She last took Xarelto on 02/15 in the evening. She recently had a bladder infection and was started on Bactrim on Tuesday. She is here with her daughter Miriam who would like to be informed of any surgical plans cell#: [phone]. PMHx. Hiatal hernia, Atrial fibrillation, HTN, kidney disease, history of hysterectomy Allergies Allergy/AdvReac Type Severity Reaction Status Date / Time ampicillin Allergy Unknown . Verified 02/17/20 22:11 Fish Containing Products Allergy Unknown Unknown Verified 02/17/20 22:11 nut - unspecified Allergy Unknown . Verified 02/17/20 22:11 shellfish derived Allergy Unknown HIVES Verified 02/17/20 22:11 fish derived Allergy Verified 02/18/20 14:06 latex Allergy Verified 02/17/20 22:11 IMITATION CHEESE Allergy Severe ANAPHYLAXIS Uncoded 02/17/20 22:11 Seafood Allergy Severe Anaphylaxis Uncoded 02/17/20 22:11 Home Medications Home Medications Medication Instructions Recorded Confirmed Type amlodipine 5 mg tablet 5 mg PO QAM tab 04/23/19 02/17/20 History epinephrine 0.3 mg/0.3 mL 0.3 ml SUBCUT DIRECTED PRN ea 04/23/19 02/17/20 History injection, auto-injector fluoxetine 20 mg tablet 20 mg PO QAM tab 04/23/19 02/17/20 History furosemide 20 mg tablet 20 mg PO QAM tab 04/23/19 02/17/20 History metoprolol tartrate 50 mg tablet 50 mg PO BID tab 04/23/19 02/17/20 History quetiapine 25 mg tablet 12.5 mg PO HS tab 04/23/19 02/17/20 History rivaroxaban 15 mg tablet 15 mg PO HS tab 04/23/19 02/17/20 History memantine 10 mg tablet 10 mg PO BID 30 Days #60 tab 02/07/20 02/17/20 Rx acetaminophen [Tylenol] 0 mg PO DIRECTED PRN 02/17/20 02/17/20 History calcium carbonate-vitamin D3 1 tab PO QAM 02/17/20 02/17/20 History [Calcium 500 + D] donepezil [Aricept] 10 mg PO HS 02/17/20 02/17/20 History famotidine 20 mg PO QAM 02/17/20 02/17/20 History loratadine 10 mg PO QAM 02/17/20 02/17/20 History risedronate 150 mg PO MONTHLY 02/17/20 02/17/20 History sulfamethoxazole-trimethoprim 1 tab PO BID 02/17/20 02/17/20 History Past Med/Surg History Medical History (Updated 02/18/20 @ 11:56 by Tyler Iraheta MD) Atrial fibrillation Heart disease Hiatal hernia Hip fracture, right HTN (hypertension) Kidney disease Surgical History H/O: hysterectomy Hx of cataract surgery Social History Preferred Language: Greenlandic Communication Ability: Effective Beliefs That Will Affect Care: None Current Living Situation: Family Current Living Situation Comment: lives with daughter Miriam Other Information That Helps Us Care for You: No Feels Safe at Home: Yes Safety Concerns: Feels Safe At This Time Smoking Status: Never smoker Do You Dip or Chew Tobacco: No ; Second Hand Exposure: Yes ; Hx Alcohol Use: Yes Alcohol type: wine Hx Substance Use: No Review of Systems Review of Systems: Constitutional: denies fevers, chills, vomiting Head: denies LOC, headache, confusion, lightheadedness Neurologic: denies syncope, slurring of speech, focal weakness ENT: denies sneezing, sore throat admits allergies Cardiac: denies chest pain, palpitations Pulm: denies cough, shortness of breath heme: admits bruising on xarelto GI: denies constipation, abdominal pain, admits changes in bowel habits (attributes to abx.) Physical Exam Constitutional: WD/WN, vitals as above Eyes: PERRL, conjunctivae normal, anicteric sclerae ENMT: external ear and nose normal, oropharynx normal Neck: normal visual inspection Respiratory: normal respiratory effort, lungs clear to auscultation Cardiovascular: Heart Sounds: no murmur Extremities: no edema irregularly irregular Gastrointestinal (Abdomen): normal bowel sounds, soft, nontender, no hepat osplenomegaly Musculoskeletal: right hip without bruising, lower extremity neurovascularly intact Skin: no rashes, warm and dry Psychiatric: A+Ox3, euthymic affect Results & Data Results & Data ([facility]) Vital Signs (Past 12 Hours) Vital Signs Temp Pulse Resp BP Pulse Ox 02/17/20 21:57 36.8 C 72 20 116/[address] pelvis: acute right subcapital head/neck fracture with mild impaction and apex anterior angulation Code Status & VTE Plan Code Status DNR/DNI VTE Prophylaxis Plan VTE Prophylaxis will be ordered: No Reason for no VTE mechanical prophylaxis: Contraindicated (hip fracture with likely need for surgical repair) Supervising Physician Co-Signing Physician Notes Attending addendum: I have physically seen this patient, have supervised the medical residents activities, and agree with the H&P unless as otherwise noted. Assessment and Plan: Closed right subcapital head and neck fracture- Geriatric hip fracture order set N.p.o. Hold Xarelto, no reversal at this time Acetaminophen 1 g IV every 8 hours PRN mild pain or temperature. Dilaudid 0.2 mg IV every 3 hours as needed severe pain LR at 125 mils per hour Consult orthopedic surgery Atrial fibrillation/hypertension- Holding Xarelto hold antihypertensives while n.p.o., As the blood pressure is in low normal range. Remainder of orders and notations as noted. Resident Activity Tracking Resident Involvement: Resident Care Provided Care Provided: Adult Hospital Medicine
[2020-02-18] MEDS ORDERED: ACETAMINOPHEN 325 MG TAB PO PRN (02:24)
[2020-02-18] MEDS: LACTATED RINGER'S 1,000 ML IV SCH ×5 (03:33→23:54)
[2020-02-18 04:00] LABS: Appearance Urine Cloudy (Clear); Bacteria Urine Automated Negative (Negative); Bilirubin Urine Negative (Negative); Blood Urine Negative (Negative); Color Urine Yellow; Epithelial Cell Urine Auto >30 /lpf (0-5); Glucose Urine UA Negative (Negative); Ketones Urine Trace (Negative); Leukocyte Esterase Urine Negative (Negative); Nitrite Urine Negative (Negative); Protein Urine Negative (Negative); RBC Urine Automated 0-4 /hpf (0-4); Specific Gravity Urine 1.022 (1.000-1.030); Urobilinogen Urine Negative (Negative); pH Urine 6.5 (4.5-7.5)
[2020-02-18] MEDS: ACETAMINOPHEN 325 MG TAB PO PRN (04:16)
[2020-02-18 05:54] LABS: BUN Creatinine Ratio 20.7 (10-20); Calcium 8.3 mg/dl (8.5-10.1); Creatinine Clr Calc Pharmacy 33.3 ml/min; Est GFR (African American) 48.4; Est GFR (Non-African American) 41.8; Potassium 4.2 mmol/L (3.5-5.1)
--- NOTE | 2020-02-18 07:13 | XRay Report ---
XR pelvis 1-2V routine, XR femur RT 2V routine CLINICAL HISTORY: Pt c/o Rt hip pain COMPARISON STUDY: None. FINDINGS: There is a left hip hemiarthroplasty. Hardware appears intact. No fractures identified with in the pelvis or left hip. Vascular calcifications are noted. Slightly impacted subcapital right femo ral neck fracture. No dislocation. The bones are osteopenic. The mid to distal femur appears intact. IMPRESSION: 1. Slightly impacted subcapital right femoral neck fracture. 2. No fractures identified within the pelvis or left hip. ACT 112: Negative or not required by law. Electronically signed by: Hemanth Ziegler M.D. 02/18/2020 7:12 AM
--- NOTE | 2020-02-18 07:35 | CT Scan Report ---
CT pelvis wo con CT DOSE: 351.91 mGy.cm CLINICAL HISTORY: Right hip pain TECHNIQUE: Helical images were acquired in the transverse plane. Sagittal coronal reformatted images were acquired. A dose lowering technique was utilized adhering to the principles of ALARA. COMPARISON STUDY: X-ray study dated 02/17/2020 FINDINGS: The uterus is surgically absent. There is colonic diverticulosis. There is a 52 mm presacral cystic l esion. The bones are osteopenic. There is an acute subcapital right hip fracture. There are postsurgical pat nges of a total left hip arthroplasty. IMPRESSION: 1. Acute subcapital right hip fracture 2. 52 mm presacral cystic lesion potentially of ovarian origin. 3. Extensive colonic diverticulosis ACT 112: Negative or not required by law. Electronically signed by: Stephane Lai M.D. 02/18/2020 7:34 AM
--- NOTE | 2020-02-18 07:43 | XRay Report ---
XR chest 1V portable HISTORY: Preop. Pt c/o Rt hip fracture COMPARISON: Chest 11/24/2017. FINDINGS: Calcified granuloma within the right midlung zone. Old, healed right-sided rib fractures. T he heart is mildly enlarged. There is a large hiatus hernia. Linear densities at the left lung base h ave slightly progressed. No evidence for pulmonary edema. No pleural effusions. No pneumothorax. IMPRESSION: 1. Stable mild cardiomegaly and a large hiatus hernia. 2. Left basilar linear densities have slightly progressed. This may represent atelectasis from the he rnia. A superimposed pneumonia cannot be excluded. ACT 112: Negative or not required by law. Electronically signed by: Hemanth Ziegler M.D. 02/18/2020 7:42 AM
[2020-02-18] MEDS ORDERED: CIPROFLOXACIN 500 MG TAB PO SCH ×2 (09:00→21:00)
--- NOTE | 2020-02-18 09:19 | Orthopedic Consultation ---
Date of Consultation February 18, 2020 Assessment & Plan (1) Hip fracture, right: She was educated on this type injury. She has been through this just recently with her left hip unfortunately. Talked her about treatment for it we would recommend surgical intervention. We will plan on doing a right hip hemiarthroplasty, specifically a cemented bipolar hemiarthroplasty. The procedure was explained including the risks benefits and alternatives to surgery. Consent was obtained. She is n.p.o. and her Xarelto is being held. We will plan on doing this later this afternoon. Surgery will be with Dr. Shoemaker. Present on Admission?: Yes History of Present Illness Reason for Consultation: Right hip fracture Attending Physician: Brandon Whalen MD History of Present Illness 84-year-old female admitted last night for a right femoral neck fracture. She injured it yesterday when she was at [facility] and walking up a hill and fell injuring her hip. She does normally ambulate with the use of a cane. She had a left hip fracture about 5 months ago which was treated in [place] with a hemiarthroplasty. No complications after the surgery. She has had a history of DVT in 1 of her legs in the past and is on Xarelto. She complains of right hip pain today. No other orthopedic complaints at this time. Allergies Allergy/AdvReac Type Severity Reaction Status Date / Time ampicillin Allergy Unknown . Verified 02/17/20 22:11 Fish Containing Products Allergy Unknown Unknown Verified 02/17/20 22:11 nut - unspecified Allergy Unknown . Verified 02/17/20 22:11 shellfish derived Allergy Unknown HIVES Verified 02/17/20 22:11 latex Allergy Verified 02/17/20 22:11 IMITATION CHEESE Allergy Severe ANAPHYLAXIS Uncoded 02/17/20 22:11 Seafood Allergy Severe Anaphylaxis Uncoded 02/17/20 22:11 Home Medications Home Medications Medication Instructions Recorded Confirmed Type amlodipine 5 mg tablet 5 mg PO QAM tab 04/23/19 02/17/20 History epinephrine 0.3 mg/0.3 mL 0.3 ml SUBCUT DIRECTED PRN ea 04/23/19 02/17/20 History injection, auto-injector fluoxetine 20 mg tablet 20 mg PO QAM tab 04/23/19 02/17/20 History furosemide 20 mg tablet 20 mg PO QAM tab 04/23/19 02/17/20 History metoprolol tartrate 50 mg tablet 50 mg PO BID tab 04/23/19 02/17/20 History quetiapine 25 mg tablet 12.5 mg PO HS tab 04/23/19 02/17/20 History rivaroxaban 15 mg tablet 15 mg PO HS tab 04/23/19 02/17/20 History memantine 10 mg tablet 10 mg PO BID 30 Days #60 tab 02/07/20 02/17/20 Rx acetaminophen [Tylenol] 0 mg PO DIRECTED PRN 02/17/20 02/17/20 History calcium carbonate-vitamin D3 1 tab PO QAM 02/17/20 02/17/20 History [Calcium 500 + D] donepezil [Aricept] 10 mg PO HS 02/17/20 02/17/20 History famotidine 20 mg PO QAM 02/17/20 02/17/20 History loratadine 10 mg PO QAM 02/17/20 02/17/20 History risedronate 150 mg PO MONTHLY 02/17/20 02/17/20 History sulfamethoxazole-trimethoprim 1 tab PO BID 02/17/20 02/17/20 History Patient History Social History Preferred Language: Upper Sorbian Communication Ability: Effective Beliefs That Will Affect Care: None Current Living Situation: Family Current Living Situation Comment: lives with daughter Miriam Other Information That Helps Us Care for You: No Feels Safe at Home: Yes Safety Concerns: Feels Safe At This Time Smoking Status: Never smoker Do You Dip or Chew Tobacco: No ; Second Hand Exposure: Yes ; Hx Alcohol Use: Yes Alcohol type: wine Hx Substance Use: No Review of Systems Musculoskeletal: as per Subjective / HPI Integumentary: no wounds Neurologic: no loss of sensation and no tingling Physical Exam Physical Exam: She is alert and oriented. She is in no distress. She is supine in bed. On exam of her lower extremities, she has no pain with range of motion of her left hip. She has a scar healed well in her left hip from previous surgery. On exam of her right leg she is tender around the right hip. Skin is intact. Leg is shortened and externally rotated. She has groin pain with any movement in bed but I did not do any range of motion of her hip at this time. No knee effusion. She can dorsiflex and plantar flex appropriately. She is neurovascular intact. Results & Data ([facility]) Vital Signs (Past 12 Hours) Vital Signs Temp Pulse Pulse Resp BP BP Pulse Ox 02/18/20 07:04 36.6 C 88 16 129/81 98 02/18/20 02:15 36.6 C 92 H 14 136/79 02/18/20 01:57 86 17 126/77 91 02/17/20 23:45 94 H 17 134/79 94 02/17/20 21:57 36.8 C 72 20 116/74 100 Diagnostic Findings Imaging studies were reviewed today including her x-rays and CT scan. She does have a displaced right femoral neck fracture. PG Care Time/CCT Total # of Minutes Spent Total Time Spent with Patient: Total time spent is greater than 50% in coordinat ion of care (as documented) at patient's floor/unit and/or counseling patient: Coding Level of Care Code 86481 Initial Inpt Care Lvl 3 Diagnoses Hip fracture, right S72.001A
[2020-02-18] MEDS: METOPROLOL TARTRATE 50 MG TAB PO SCH ×2 (11:12→20:34)
--- NOTE | 2020-02-18 11:24 | Electrocardiogram Report ---
Test Reason : Blood Pressure : / mmHG Vent. Rate : 088 BPM Atrial Rate : 072 BPM P-R Int : 000 ms QRS Dur : 098 ms QT Int : 382 ms P-R-T Axes : 000 -17 010 degrees QTc Int : 462 ms Poor data quality, interpretation may be adversely affected Atrial fibrillation Incomplete right bundle branch block Abnormal ECG When compared with ECG of 24-NOV-2017 18:11, ST no longer depressed in Inferior leads ST no longer depressed in Anterior leads T wave inversion no longer evident in Inferior leads Confirmed by Ino Ng ([id number]) on 02/18/2020 11:24:05 AM Referred By: REFERRED SELF Confirmed By:Ino Ng
[2020-02-18] MEDS ORDERED: BUPIVACAINE 0.5 % 5 MG/1 ML MPF 30ML VIAL ONE (11:53)
[2020-02-18] MEDS ORDERED: EPINEPHrine INJ 1 MG/ML AMP ONE (11:53)
[2020-02-18] MEDS ORDERED: BACITRACIN INJ 50,000 UNIT VIAL ONE (11:53)
[2020-02-18] MEDS ORDERED: THROMBIN FOR SOLN 20000 UNIT KIT ONE (11:53)
--- NOTE | 2020-02-18 11:55 | Anesthesiology Consultation ---
Date of Service February 18, 2020 Assessment & Plan (1) Encounter for pre-operative examination: Chart Review Chart Review: Acceptable Risk for Surgery and Patient NOT seen in Pre Admission Testing Patient did not have a preop covid screen. Patient does not appear to be from a high risk facility (she lives with her daughter). Will require a general anesthetic given recent Xarelto usage. Will have to enact rule given lack of covid testing. Consults Requested none History Surgery Operation Date: 02/18/20 07:50 Proposed Procedures p Right Cemented Bipolar Hemiarthroplasty - Horace Shoemaker MD Height/Weight Height: 5 ft 6 in Weight: 61.8 kg Allergies Allergy/AdvReac Type Severity Reaction Status Date / Time ampicillin Allergy Unknown . Verified 02/17/20 22:11 Fish Containing Products Allergy Unknown Unknown Verified 02/17/20 22:11 nut - unspecified Allergy Unknown . Verified 02/17/20 22:11 shellfish derived Allergy Unknown HIVES Verified 02/17/20 22:11 latex Allergy Verified 02/17/20 22:11 IMITATION CHEESE Allergy Severe ANAPHYLAXIS Uncoded 02/17/20 22:11 Seafood Allergy Severe Anaphylaxis Uncoded 02/17/20 22:11 Medications Home Medications Medication Instructions Recorded Confirmed Last Taken amlodipine 5 mg tablet 5 mg PO QAM tab 04/23/19 02/17/20 02/17/20 epinephrine 0.3 mg/0.3 mL 0.3 ml SUBCUT DIRECTED PRN ea 04/23/19 02/17/20 Unknown injection, auto-injector fluoxetine 20 mg tablet 20 mg PO QAM tab 04/23/19 02/17/20 02/17/20 furosemide 20 mg tablet 20 mg PO QAM tab 04/23/19 02/17/20 02/17/20 metoprolol tartrate 50 mg tablet 50 mg PO BID tab 04/23/19 02/17/20 02/17/20 quetiapine 25 mg tablet 12.5 mg PO HS tab 04/23/19 02/17/20 02/16/20 rivaroxaban 15 mg tablet 15 mg PO HS tab 04/23/19 02/17/20 02/16/20 memantine 10 mg tablet 10 mg PO BID 30 Days #60 tab 02/07/20 02/17/20 02/17/20 acetaminophen [Tylenol] 0 mg PO DIRECTED PRN 02/17/20 02/17/20 02/17/20 1 pill calcium carbonate-vitamin D3 1 tab PO QAM 02/17/20 02/17/20 02/17/20 [Calcium 500 + D] donepezil [Aricept] 10 mg PO HS 02/17/20 02/17/20 02/17/20 famotidine 20 mg PO QAM 02/17/20 02/17/20 02/17/20 loratadine 10 mg PO QAM 02/17/20 02/17/20 02/17/20 risedronate 150 mg PO MONTHLY 02/17/20 02/17/20 01/28/20 sulfamethoxazole-trimethoprim 1 tab PO BID 02/17/20 02/17/20 02/17/20 Active Medications Generic Name Dose Route Start Last Admin Trade Name Freq PRN Reason Stop Dose Admin Acetaminophen 650 mg 02/18/20 01:00 02/18/20 04:16 Tylenol PO 03/19/20 00:59 650 mg Q4H PRN Administration pain/fever Ciprofloxacin 500 mg 02/18/20 09:00 02/18/20 12:21 Cipro PO 02/28/20 08:59 500 mg DAILY MELLISSA Administration Lactated Ringer's 1,000 mls @ 125 mls/hr 02/18/20 01:15 02/18/20 11:01 Lr IV 03/19/20 01:14 Not Given .Q8H MELLISSA Metoprolol Tartrate 50 mg 02/18/20 09:00 02/18/20 11:12 Lopressor PO 03/19/20 08:59 50 mg BID MELLISSA Administration NPO Date Last Intake of Fluids: 02/17/20 Time Last Intake of Fluids: 17:00 Date Last Intake of Solids: 02/17/20 Time Last Intake of Solids: 17:00 Past Medical History Medical History (Updated 02/18/20 @ 11:56 by Tyler Iraheta MD) Atrial fibrillation Heart disease Hiatal hernia Hip fracture, right HTN (hypertension) Kidney disease Exercise / Class Metabolic Activity II 4-5 Yardwork/Stairs/Walk up hill (prior to injury ) Past Surgical History Surgical History H/O: hysterectomy Hx of cataract surgery Past Anesthesia History No Hx of Anesthesia Complications and No Family Hx of Anesthesia Complications History of PONV No Hx of PONV and No Hx of Motion Sickness Social History Smoking Status: Never smoker Do You Dip or Chew Tobacco: No Hx Alcohol Use: Yes Alcohol type: wine alcohol intake frequency: holidays/special occasions only Hx Substance Use: No Physical Exam Vital Signs Last Vital Signs Temp 37.1 C 02/18/20 13:05 Pulse 93 H 02/18/20 13:05 Resp 20 02/18/20 13:05 BP 142/70 H 02/18/20 13:05 Pulse Ox 92 02/18/20 13:05 Testing Laboratory Results 02/18/20 00:14 02/18/20 05:10 PT 12.7 Seconds (9.0-12.0) H 02/18/20 00:14 INR 1.2 (0.9-1.1) H 02/18/20 00:14 APTT 30.5 Seconds (21.0-31.0) 02/18/20 00:14 Urine Color Yellow 02/18/20 03:20 Urine Appearance Cloudy (Clear) A 02/18/20 03:20 Urine pH 6.5 (4.5-7.5) 02/18/20 03:20 Ur Specific [place] 1.022 (1.000-1.030) 02/18/20 03:20 Urine Protein Negative (Negative) 02/18/20 03:20 Urine Glucose (UA) Negative (Negative) 02/18/20 03:20 Urine Ketones Trace (Negative) H 02/18/20 03:20 Urine Nitrite Negative (Negative) 02/18/20 03:20 Ur Leukocyte Esterase Negative (Negative) 02/18/20 03:20 Urine WBC (Auto) 1-5 /hpf (0-5) 02/18/20 03:20 Urine RBC (Auto) 0-4 /hpf (0-4) 02/18/20 03:20 U Hyaline Cast (Auto) 1-5 /lpf (0-5) 02/18/20 03:20 U Epithel Cells (Auto) >30 /lpf (0-5) H 02/18/20 03:20 Urine Bacteria (Auto) Negative (Negative) 02/18/20 03:20 Blood Type A Positive 02/18/20 01:49 Antibody Screen NEGATIVE 02/18/20 01:49 Electrocardiogram Date: 02/18/20 Findings: + AFIB @ (88) Poor data quality, interpretation may be adversely affected Atrial fibrillation Incomplete right bundle branch block Abnormal ECG When compared with ECG of 24-NOV-2017 18:11, ST no longer depressed in Inferior leads ST no longer depressed in Anterior leads T wave inversion no longer evident in Inferior leads Confirmed by Ino Ng ([id number]) on 02/18/2020 11:24:05 AM Chest X-Ray Date: 02/18/20 XR chest 1V portable HISTORY: Preop. Pt c/o Rt hip fracture COMPARISON: Chest 11/24/2017. FINDINGS: Calcified granuloma within the right midlung zone. Old, healed right- sided rib fractures. The heart is mildly enlarged. There is a large hiatus hernia. Linear densities at the left lung base have slightly progressed. No evidence for pulmonary edema. No pleural effusions. No pneumothorax. IMPRESSION: 1. Stable mild cardiomegaly and a large hiatus hernia. 2. Left basilar linear densities have slightly progressed. This may represent atelectasis from the hernia. A superimposed pneumonia cannot be excluded.
[2020-02-18] MEDS ORDERED: fentaNYL citrate 100 MCG/2 ML VIAL ONE ×2 (13:06→16:04)
[2020-02-18] MEDS ORDERED: ePHEDrine sulfate 50 MG/ML AMP IV PRN (13:29)
[2020-02-18] MEDS ORDERED: ATROPINE SULFATE 0.1 MG/ML 10ML SYR IV PRN (13:29)
[2020-02-18] MEDS ORDERED: HYDROmorphone INJ 1 MG/ML SYRINGE IV PRN (13:29)
[2020-02-18] MEDS ORDERED: fentaNYL citrate 100 MCG/2 ML VIAL IV PRN (13:29)
--- NOTE | 2020-02-18 14:00 | History & Physical Bridge Note ---
Date of Service February 18, 2020 History & Physical Bridge Note I have examined the patient, reviewed the History & Physical and in the interval since the performance of the History & Physical I have noted the following changes of clinical significance: no changes noted
[2020-02-18] MEDS ORDERED: ONDANSETRON INJ 2 MG/ML 2 ML VIAL ONE (15:52)
[2020-02-18] MEDS ORDERED: NEOSTIGMINE METHYLSULFATE 5 MG/5 ML SYR ONE (15:52)
[2020-02-18] MEDS ORDERED: GLYCOPYRROLATE 0.2 MG/ML VIAL ONE (15:52)
[2020-02-18] MEDS ORDERED: DEXAMETHASONE SOD INJ 4 MG/ML VIAL ONE (15:52)
[2020-02-18] MEDS ORDERED: PHENYLEPHRINE 100MCG/ML 5ML SYR ONE (15:52)
[2020-02-18] MEDS ORDERED: PROPOFOL IV EMULSION 10 MG/ML 20 ML VIAL IV ONE (15:52)
[2020-02-18] MEDS ORDERED: LIDOCAINE HCL 2% 2 ML VIAL/AMP(20MG/ML) INFIL ONE (15:52)
[2020-02-18] MEDS ORDERED: ROCURONIUM BROMIDE 10 MG/ML 5 ML VIAL IV ONE (15:52)
[2020-02-18] MEDS ORDERED: CEFAZOLIN 1000MG 1,000 MG/7.5 ML SYR IV ONE (16:00)
[2020-02-18] MEDS ORDERED: ESMOLOL HCL INJ 10 MG/ML 10ML VIAL IV ONE (16:14)
--- NOTE | 2020-02-18 16:16 | Post Operative Brief Note ---
PG Immediate Post Op with CF Date of Surgery February 18, 2020 Pre & Post Diagnosis Operation Date: 02/18/20 07:50 Pre-Op Diagnosis: Right displaced femoral neck/hip fracture Post-Op Diagnosis: Right displaced femoral neck/hip fracture I identified the patient and participated in the time-out.: Yes Procedure Operation Date: 02/18/20 07:50 Actual Procedures p Right Cemented Bipolar Hemiarthroplasty(Right) - Horace Shoemaker MD Surgeon Horace Shoemaker MD Graves Registration Specialist Marlee, PAC Estimated Blood Loss 200 Findings Consistent with Post-Op Diagnosis Fluids 1600 cc Specimens Specimen Description: A. right femoral head Drains [place] Catheter Anesthesia Type General Complications none Disposition Accompanied Patient To Recovery: No Disposition: Recovery Room
[2020-02-18] MEDS ORDERED: METOPROLOL TARTRATE 1 MG/ML VIAL IV ONE (16:23)
--- NOTE | 2020-02-18 17:14 | Anesthesiology Progress Note ---
Date of Service February 18, 2020 Anesthesia Post Procedure Vital Signs Vital Signs: Temp Pulse Pulse Pulse Resp BP BP 02/18/20 17:05 36.5 C 108 H 20 134/92 02/18/20 16:55 105 H 20 139/94 02/18/20 16:45 111 H 18 114/78 02/18/20 16:39 36.5 C 117 H 22 162/99 H 02/18/20 13:05 37.1 C 93 H 20 02/18/20 07:04 36.6 C 88 16 02/18/20 02:15 36.6 C 92 H 14 02/18/20 01:57 86 17 02/17/20 23:45 94 H 17 02/17/20 21:57 36.8 C 72 20 116/74 BP Pulse Ox 02/18/20 17:05 94 02/18/20 16:55 93 02/18/20 16:45 95 02/18/20 16:39 94 02/18/20 13:05 142/70 H 92 02/18/20 07:04 129/81 98 02/18/20 02:15 136/79 02/18/20 01:57 126/77 91 02/17/20 23:45 134/79 94 02/17/20 21:57 100 Pain Intensity Left Hip: Pain Intensity: 4 Right Hip: Pain Intensity: 10
--- NOTE | 2020-02-18 17:16 | XRay Report ---
XR hip RT min 2V CLINICAL HISTORY: Post-Operative implant position COMPARISON: 02/17/2020 DISCUSSION: Anatomic alignment posttotal right hip arthroplasty. Good contact between prosthetic and underlying bone. Expected soft tissue postoperative change IMPRESSION: Anatomic alignment posttotal right hip arthroplasty. ACT 112: Negative or not required by law. The above report was generated using voice recognition software. It may contain grammatical, syntax or spelling errors. Electronically signed by: Vinay Ferguson M.D. 02/18/2020 5:15 PM
--- NOTE | 2020-02-18 18:25 | Operative Report ---
Post Operative Report Pre & Post Diagnosis Operation Date: 02/18/20 07:50 Pre-Op Diagnosis: Right displaced femoral neck/hip fracture Post-Op Diagnosis: Right displaced femoral neck/hip fracture I identified the patient and participated in the time-out.: Yes Procedure Operation Date: 02/18/20 07:50 Actual Procedures p Right Cemented Bipolar Hemiarthroplasty(Right) - Horace Shoemaker MD Surgeon Horace Shoemaker MD [employer] Marlee, PAC Estimated Blood Loss 200 Findings Consistent with Post-Op Diagnosis Fluids 1600 cc. Specimens Right femoral head sent for pathology. Drains None. Anesthesia Type General Complications none Disposition Accompanied Patient To Recovery: No Disposition: Recovery Room Indications Patient is an 84-year-old female who sustained a fall yesterday. She was brought to emergency room where x-rays revealed a displaced femoral neck fracture. This is confirmed by CT scan. She was admitted by the medicine service, medically optimized, and indicated for surgical treatment. Of note, the patient recently had a fall and had a left femoral neck fracture fixed in a similar fashion in [place] about 5 months ago. Description of Procedure Operative implants consist of: 1. Cara size 11 LD fracture cemented fracture stem. 2. Cara 28 mm/+3.5 femoral head. 3. 45 mm bipolar shell and liner. 4. Cara distal centralizer. 5. Small cement restrictor. Patient was taken to the operating identified and placed in the operating table supine position protectors were properly padded. IV antibiotics arrived by anesthesia team. A general anesthetic was implemented as this patient was on Xarelto. We had to wait 20 minutes due to the COVID precautions. Patient did receive preoperative antibiotics. The patient was then placed in the left lateral decubitus position. An axillary roll was placed. Of note, we did place a Puente catheter at the beginning of the case. The right hip was then scrubbed with Hibiclens and then prepped and draped in usual sterile fashion. A posterior lateral approach the right hip was then performed to a curvilinear incision centered over the greater trochanter. Sharp lysis got through subcutaneous tissue down below the IT band gluteal fascia. The IT band gluteal fascia incised longitudinally in line with skin incision. The underlying greater bursa was excised. The piriformis and external rotators were tagged and taken off the posterior aspect of the hip joint capsule. Great care was taken throughout the procedure to protect the sciatic nerve at all times. A posterior capsulotomy was then performed leaving a 2 flap for later repair. Hip was internally rotated. The fracture was obvious. A femoral neck osteotomy cut was made just below the fracture site. Femoral head and neck were then removed and the head was sized to a size 45. We trialed the acetabulum the 45 shell fit most appropriately. The proximal femur was entered with a cookie-cutter followed by canal finder and lateralizing reamer. Then broached beginning with size 8 and progressing up to 11. Got excellent fit at 11. I really could not fit the 12 down. We then trialed the hip and the +3.5 articular ball provide full stability in the equal leg lengths. We elect to place these implants. All trial implants were removed. A small cement restrictor was placed distally. A double batch Pal[place]os G cement was mixed. A Cara LD fracture fracture stem size 11 was then placed after injecting the canal with the cement using a and using a distal centralizer. All extraneous cement was removed. The stem was held until the cement hardened. A +3.5/28 mm metal articular ball was placed followed by for 45 bipolar shell and liner. Hip was located once again found to be stable. Attention drawn to closing. The wounds irrigated cups ounce pulsatile lavage solution. I did inject locally with 30 cc of half percent Marcaine with epinephrine. The posterior capsule was then repaired with #2 Tycron suture. The external rotators were then reapproximated to the posterior aspect of hip abductors with #2 Tycron suture. The IT band gluteal fascia then closed with #1 PDS suture in running fashion the subcutaneous tissue then closed with 2 layers with a deep layer #1 Vicryl suture and subcutaneous tissues with 2-0 Dexon suture in a buried interrupted fashion. Skin was closed skin gilles. Leg was then cleaned dried a sterile dressing composed Xeroform, 4 x 4's, sterile ABD pad and foam tape was applied. Patient then transferred to the recovery room in stable condition. Patient tolerated procedure well and there were no complications. I attest to the content of the Intraoperative Record and any orders documented therein. Any exceptions are noted below.
[2020-02-18] MEDS: DOCUSATE SODIUM/SENNA 50/8.6MG TAB PO SCH (20:35)
--- NOTE | 2020-02-18 21:00 | Hospitalist Progress Note ---
Date of Service February 18, 2020 Assessment & Plan (1) Hip fracture, right: osteoporotic s/p fall. had left hip fracture within the last 6 months also requiring ORIF. appreciate ortho consult and assistance. s/p ORIF today. pain control DVT proph - resume xarelto - tomorrow AM? PT, OT. will likely need rehab. check 25-OH vit D in am. (2) HTN (hypertension): cont metoprolol 50 BID amlodipine on hold (3) Chronic kidney disease, stage 3a: baseline CrCl is 40s/50s bmp in am for stability (4) Atrial fibrillation: permanent typically on metoprolol bid for rate control and xarelto for anticoagulation resume latter when ok with ortho (5) Dementia: cont namenda and aricept (6) UTI (urinary tract infection): urine cx 02/12 with pansensitive coag neg staph stop cipro change to keflex 500 BID x 5 more days then stop Rx (7) DVT prophylaxis: xarelto scds PT, OT left message for daughter today likely to need rehab Admission and Anticipated Discharge Date Admission Date: February 18, 2020 Subjective saw patient post surgery for right hip fracture she was talking on the phone w/ daughter she denied cp or dyspnea mild right hip pain only no abd pain or nausea Review of Systems Constitutional: no fever Respiratory: no cough and no dyspnea Cardiovascular: no chest pain Gastrointestinal: no abdominal pain Physical Exam Constitutional: no acute distress and no altered mental status ENMT: external ear and nose normal, oropharynx normal Respiratory: normal respiratory effort, lungs clear to auscultation Cardiovascular: Rate/Rhythm: regular rate and + irregularly irregular Heart Sounds: normal S1 and normal S2; no murmur Vessels: posterior tibial pulses present and dorsalis pedis pulses present; no JVD Extremities: no edema Gastrointestinal (Abdomen): normal bowel sounds, soft, nontender, no hepatosplenomegaly Musculoskeletal: right hip dressings intact Psychiatric: Orientation: alert Results & Data Results & Data ([facility]) Vital Signs (Past 12 Hours) Vital Signs Temp Pulse Pulse Resp BP BP Pulse Ox 02/18/20 19:39 36.4 C L 98 H 17 116/66 94 02/18/20 18:40 36.6 C 108 H 17 123/76 95 02/18/20 18:00 99 H 16 127/69 94 02/18/20 17:30 36.7 C 107 H 16 126/80 93 02/18/20 17:15 100 H 20 128/75 93 02/18/20 17:05 36.5 C 108 H 20 134/92 94 02/18/20 16:55 105 H 20 139/94 93 02/18/20 16:45 111 H 18 114/78 95 02/18/20 16:39 36.5 C 117 H 22 162/99 H 94 02/18/20 13:05 37.1 C 93 H 20 142/70 H 92 Laboratory Results Laboratory Results - last 24 hr 02/18/20 02/18/20 02/18/20 00:14 00:14 00:14 WBC 13.37 H RBC 4.46 Hgb 13.9 Hct 41.2 MCV 92.4 MCH 31.2 MCHC 33.7 RDW Std Deviation 53.4 H RDW Coeff of Kathi 15.9 H Plt Count 196 MPV 9.9 Immature Gran % (Auto) 0.3 Neut % (Auto) 84.1 Lymph % (Auto) 6.3 Barber % (Auto) 9.1 Eos % (Auto) 0.1 Baso % (Auto) 0.1 Immature Gran # (Auto) 0.04 H Neut # (Auto) 11.25 H Lymph # (Auto) 0.84 L Barber # (Auto) 1.21 H Eos # (Auto) 0.01 Baso # (Auto) 0.02 PT 12.7 H INR 1.2 H APTT 30.5 PTT Ratio 1.1 Sodium 135 L Potassium 4.2 Chloride 102 Carbon Dioxide 26 Anion Gap 7.0 BUN 29 H Creatinine 1.52 H Est Cr Clr Drug Dosing Not Reportable Est GFR ( Amer) 36.4 Est GFR (Non-Af Amer) 31.4 BUN/Creatinine Ratio 18.8 Glucose 150 H Calcium 9.2 Urine Color Urine Appearance Urine pH Ur Specific [place] Urine Protein Urine Glucose (UA) Urine Ketones Urine Blood Urine Nitrite Urine Bilirubin Urine Urobilinogen Ur Leukocyte Esterase Urine WBC (Auto) Urine RBC (Auto) U Hyaline Cast (Auto) U Epithel Cells (Auto) Urine Bacteria (Auto) Blood Type Antibody Screen 02/18/20 02/18/20 02/18/20 01:49 03:20 05:10 WBC RBC Hgb Hct MCV MCH MCHC RDW Std Deviation RDW Coeff of Kathi Plt Count MPV Immature Gran % (Auto) Neut % (Auto) Lymph % (Auto) [place] % (Auto) Eos % (Auto) Baso % (Auto) Immature Gran # (Auto) Neut # (Auto) Lymph # (Auto) [place] # (Auto) Eos # (Auto) Baso # (Auto) PT INR APTT PTT Ratio Sodium 135 L Potassium 4.2 Chloride 104 Carbon Dioxide 23 Anion Gap 8.0 BUN 25 H Creatinine 1.20 D Est Cr Clr Drug Dosing 33.3 Est GFR ( Amer) 48.4 Est GFR (Non-Af Amer) 41.8 BUN/Creatinine Ratio 20.7 H Glucose 168 H Calcium 8.3 L Urine Color Yellow Urine Appearance Cloudy A Urine pH 6.5 Ur Specific [place] 1.022 Urine Protein Negative Urine Glucose (UA) Negative Urine Ketones Trace H Urine Blood Negative Urine Nitrite Negative Urine Bilirubin Negative Urine Urobilinogen Negative Ur Leukocyte Esterase Negative Urine WBC (Auto) 1-5 Urine RBC (Auto) 0-4 U Hyaline Cast (Auto) 1-5 U Epithel Cells (Auto) >30 H Urine Bacteria (Auto) Negative Blood Type A Positive Antibody Screen NEGATIVE PG Care Time/CCT Total # of Minutes Spent Total Time Spent with Patient: Total time spent is greater than 50% in coordination of care (as documented) at patient's floor/unit and/or counseling patient: Coding Level of Care Code 81500 Subseq Hosp Care Lvl 2 Diagnoses Hip fracture, right S72.001D Encounter type: subsequent encounter Fracture type: closed Fracture healing: with routine healing HTN (hypertension) I10 Hypertension type: essential hypertension Chronic kidney disease, stage 3a N18.3 Atrial fibrillation I48.21 Atrial fibrillation type: permanent Dementia F03.90 Dementia type: unspecified type Dementia behavioral disturbance: without behavioral disturbance UTI (urinary tract infection) N30.00 Urinary tract infection type: acute cystitis Hematuria presence: without hematuria DVT prophylaxis Z29.9 (1) Hip fracture, right Encounter type: subsequent encounter Fracture type: closed Fracture healing: with routine healing Qualified Code(s): S72.001D - Fracture of unspecified part of neck of right femur, subsequent encounter for closed fracture with routine healing (2) HTN (hypertension) Hypertension type: essential hypertension Qualified Code(s): I10 - Essential (primary) hypertension (3) Atrial fibrillation Atrial fibrillation type: permanent Qualified Code(s): I48.21 - Permanent atrial fibrillation (4) Dementia Dementia type: unspecified type Dementia behavioral disturbance: without behavioral disturbance Qualified Code(s): F03.90 - Unspecified dementia without behavioral disturbance (5) UTI (urinary tract infection) Urinary tract infection type: acute cystitis Hematuria presence: without hematuria Qualified Code(s): N30.00 - Acute cystitis without hematuria
[2020-02-18] MEDS ORDERED: MELATONIN 3 MG TAB PO PRN (21:09)
--- NOTE | 2020-02-19 02:14 | Billing Data ---
Date of Service February 19, 2020 Coding Level of Care Code 45641 Initial Inpt Care Lvl 2
[2020-02-19] MEDS: ACETAMINOPHEN 325 MG TAB PO PRN (06:04)
[2020-02-19 06:47] LABS: Hematocrit (blood only) 37.7 % (37-47); Hemoglobin 12.2 g/dL (12.0-16.0); Immature Granulocytes # (auto) 0.04 K/uL (0.00-0.02); Immature Granulocytes % (auto) 0.3 %; Lymphocytes # (auto) 0.41 K/uL (1.2-3.4); Lymphocytes % (auto) 3.2 %; Mean Corpuscular Hemoglobin 30.9 pg (25-34); Mean Corpuscular Hgb Conc 32.4 g/dL (32-36); Mean Corpuscular Volume 95.4 fL (80-100); Mean Platelet Volume 9.7 fL (7.4-10.4); Monocytes # (auto) 0.89 K/uL (0.11-0.59); Monocytes % (auto) 6.9 %; Neutrophils # (auto) 11.49 K/uL (1.4-6.5); Neutrophils % (auto) 89.6 %; Platelet Count 150 K/uL (130-400); RDW Coefficient of Variation 16.1 % (11.5-14.5); RDW Standard Deviation 56.8 fL (36.4-46.3); Red Blood Count 3.95 M/uL (4.2-5.4); White Blood Count 12.83 K/uL (4.8-10.8)
[2020-02-19 07:39] LABS: BUN Creatinine Ratio 15.9 (10-20); Calcium 8.2 mg/dl (8.5-10.1); Creatinine Clr Calc Pharmacy 40.7 ml/min; Est GFR (African American) 61.8; Est GFR (Non-African American) 53.3; Potassium 4.8 mmol/L (3.5-5.1)
--- NOTE | 2020-02-19 08:23 | Anesthesiology Progress Note ---
Date of Service February 19, 2020 Anesthesia Post Procedure Vital Signs Vital Signs: Temp Pulse Pulse Resp BP BP Pulse Ox 02/19/20 07:37 36.6 C 88 16 108/66 90 02/19/20 02:38 36.9 C 82 15 114/68 95 02/19/20 00:00 02/18/20 23:33 36.5 C 77 15 97/61 L 95 02/18/20 19:39 36.4 C L 98 H 17 116/66 94 02/18/20 18:40 36.6 C 108 H 17 123/76 95 02/18/20 18:00 99 H 16 127/69 94 02/18/20 17:30 36.7 C 107 H 16 126/80 93 02/18/20 17:15 100 H 20 128/75 93 02/18/20 17:05 36.5 C 108 H 20 134/92 94 02/18/20 16:55 105 H 20 139/94 93 02/18/20 16:45 111 H 18 114/78 95 02/18/20 16:39 36.5 C 117 H 22 162/99 H 94 02/18/20 13:05 37.1 C 93 H 20 142/70 H 92 Pulse Ox 02/19/20 07:37 02/19/20 02:38 02/19/20 00:00 95 02/18/20 23:33 02/18/20 19:39 02/18/20 18:40 02/18/20 18:00 02/18/20 17:30 02/18/20 17:15 02/18/20 17:05 02/18/20 16:55 02/18/20 16:45 02/18/20 16:39 02/18/20 13:05 Pain Intensity Left Hip: Pain Intensity: 4 Right Hip: Pain Intensity: 2 Notes Mental Status: alert / awake / arousable and participated in evaluation Patient Amnestic to Procedure: Yes Nausea / Vomiting: adequately controlled Pain: adequately controlled Airway Patency, RR, SpO2: stable & adequate BP & HR: stable & adequate Hydration State: stable & adequate Anesthetic Complications: no major complications apparent and Pt Satisfied with anesthetic care
[2020-02-19] MEDS: cephALEXin 500 MG CAP PO SCH ×2 (08:55→21:43)
[2020-02-19] MEDS: METOPROLOL TARTRATE 50 MG TAB PO SCH ×2 (08:55→21:47)
[2020-02-19] MEDS: MEMANTINE HCL 10 MG TAB PO SCH ×2 (12:05→21:44)
[2020-02-19] MEDS: FAMOTIDINE 20 MG TAB PO SCH (12:05)
[2020-02-19] MEDS: FLUOXETINE HCL 20 MG CAP PO SCH (12:05)
[2020-02-19] MEDS: LORATADINE 10 MG TAB PO SCH (12:05)
--- NOTE | 2020-02-19 15:39 | Hospitalist Progress Note ---
Date of Service February 19, 2020 Assessment & Plan (1) Hip fracture, right: osteoporotic s/p fall. had left hip fracture within the last 6 months also requiring ORIF. appreciate ortho consult and assistance. s/p ORIF 02/17, today is POD 1 pain control DVT proph - resume xarelto tomorrow AM PT, OT. will likely need rehab, CM looking into options and discussing with family 25-OH vit D is 31.1, will start supplementation (2) HTN (hypertension): cont metoprolol 50 BID amlodipine on hold due to low normal BP (3) Chronic kidney disease, stage 3a: baseline CrCl is 40s/50s Cr is 0.98 this morning, clearance at baseline (4) Atrial fibrillation: permanent typically on metoprolol bid for rate control and xarelto for anticoagulation resume latter tomorrow AM (5) Dementia: cont namenda and aricept (6) UTI (urinary tract infection): urine cx 02/12 with pansensitive coag neg staph stop cipro change to keflex 500 BID x 4 more days then stop Rx (7) DVT prophylaxis: xarelto scds PT, OT likely to need rehab Admission and Anticipated Discharge Date Admission Date: February 18, 2020 Subjective patient doing well, says her pain in hip is controlled, she is eating well, no issues breathing she is walking with therapy but not very far, she says she wants to go to [facility] talked with showcase maker, [facility] may be difficult patient says that she lives in her daughter's basement, unsure if this is true reviewed chart reviewed labs, WBC up at 12k from surgery, hb stable at 12.2, BMP is normal Review of Systems Review of Systems: All systems reviewed & are unremarkable except as noted in HPI & below Musculoskeletal: + joint pain (right hip) Neurologic: + confusion and + memory loss Physical Exam Constitutional: WD/WN, vitals as above Eyes: PERRL, conjunctivae normal, anicteric sclerae ENMT: external ear and nose normal, oropharynx normal Neck: trachea midline, no thyromegaly Respiratory: normal respiratory effort, lungs clear to auscultation Cardiovascular: RRR, no murmur, no edema Gastrointestinal (Abdomen): normal bowel sounds, soft, nontender, no hepatosplenomegaly Musculoskeletal: Head/Neck/Chest: normocephalic, head atraumatic and neck supple Extremities: extremities normal to inspection, + limited ROM of extremities (right hip due to pain) and strength 5/5 throughout Skin: no rashes, warm and dry Neurologic: patellar DTR's 2+ bilat, sensation intact and PERRL, EOMI, accommodation nl, no face palsy, no dysarthria Psychiatric: A+Ox3, euthymic affect Lymphatic: no cervical or axillary lymphadenopathy Results & Data Results & Data ([facility]) Vital Signs (Past 12 Hours) Vital Signs Temp Pulse Resp BP Pulse Ox 02/19/20 07:37 36.6 C 88 16 108/66 90 Laboratory Results Laboratory Results - last 24 hr 02/19/20 02/19/20 02/19/20 06:33 06:33 06:33 WBC 12.83 H RBC 3.95 L Hgb 12.2 Hct 37.7 MCV 95.4 MCH 30.9 MCHC 32.4 RDW Std Deviation 56.8 H RDW Coeff of Kathi 16.1 H Plt Count 150 MPV 9.7 Immature Gran % (Auto) 0.3 Neut % (Auto) 89.6 Lymph % (Auto) 3.2 [place] % (Auto) 6.9 Eos % (Auto) 0.0 Baso % (Auto) 0.0 Neut # (Auto) 11.49 H Lymph # (Auto) 0.41 L [place] # (Auto) 0.89 H Eos # (Auto) 0.00 Baso # (Auto) 0.00 Immature Gran # (Auto) 0.04 H Sodium 136 Potassium 4.8 Chloride 104 Carbon Dioxide 24 Anion Gap 8.0 BUN 15 Creatinine 0.98 Est Cr Clr Drug Dosing 40.7 Est GFR ( Amer) 61.8 Est GFR (Non-Af Amer) 53.3 BUN/Creatinine Ratio 15.9 Glucose 134 H Calcium 8.2 L 25-OH Vitamin D Total 31.1 Medications Administered Current Inpatient Medications Acetaminophen (Tylenol) 650 mg PO Q4H PRN PRN Reason: pain/fever Stop: 03/19/20 00:59 Last Admin: 02/19/20 06:04 Dose: 650 mg Documented by: Al Hydrox/Mg Hydrox/Simethicone (Maalox) 30 ml PO Q6H PRN PRN Reason: Dyspepsia Stop: 03/19/20 00:59 Cephalexin HCl (Keflex) 500 mg PO BID [facility]; Protocol Stop: 02/24/20 08:59 Last Admin: 02/19/20 08:55 Dose: 500 mg Documented by: Donepezil HCl (Aricept) 10 mg PO HS [facility] Stop: 03/20/20 20:59 Famotidine (Pepcid) 20 mg PO [facility] Stop: 03/20/20 09:59 Last Admin: 02/19/20 12:05 Dose: 20 mg Documented by: Fluoxetine HCl (Prozac) 20 mg PO QAM [facility] Stop: 03/20/20 09:59 Last Admin: 02/19/20 12:05 Dose: 20 mg Documented by: Hydromorphone HCl (Dilaudid) 0.25 - 0.5 mg IV Q30M PRN PRN Reason: Moderate/Severe Pain Stop: 03/03/20 01:08 Loratadine (Claritin) 10 mg PO [facility] Stop: 03/20/20 09:59 Last Admin: 02/19/20 12:05 Dose: 10 mg Documented by: Magnesium Hydroxide (Milk Of Magnesia) 30 ml PO Q6H PRN PRN Reason: Constipation Stop: 03/19/20 00:59 Melatonin (Melatonin) 3 mg PO HS PRN PRN Reason: Sleep Stop: 03/19/20 21:08 Last Admin: 02/18/20 22:19 Dose: 3 mg Documented by: Memantine (Namenda) 10 mg PO BID [facility] Stop: 03/20/20 09:59 Last Admin: 02/19/20 12:05 Dose: 10 mg Documented by: Metoprolol Tartrate (Lopressor) 50 mg PO BID [facility] Stop: 03/19/20 08:59 Last Admin: 02/19/20 08:55 Dose: 50 mg Documented by: Multivitamins/Minerals (Caltrate Plus) 1 tab PO [facility] Stop: 03/21/20 08:59 Naloxone HCl (Narcan) 0.1 mg IV UD PRN PRN Reason: Opiate Overdose Stop: 03/19/20 01:04 Naloxone HCl (Narcan) 0.1 mg IV UD PRN PRN Reason: Opioid Overdose Stop: 03/19/20 17:45 Ondansetron HCl (Zofran) 4 mg IV Q6H PRN PRN Reason: Nausea Stop: 03/19/20 00:59 Polyethylene Glycol (Miralax Powder Packet) 17 gm PO DAILY PRN PRN Reason: Constipation Stop: 03/19/20 00:59 Quetiapine Fumarate (Seroquel) 12.5 mg PO HS [facility] Stop: 03/20/20 20:59 Senna/Docusate Sodium (Senokot S) 2 tab PO HS [facility] Stop: 03/19/20 20:59 Last Admin: 02/18/20 20:35 Dose: 2 tab Documented by: PG Care Time/CCT Total # of Minutes Spent Total Time Spent with Patient: Total time spent is greater than 50% in coordination of care (as documented) at patient's floor/unit and/or counseling patient: Coding Level of Care Code 58269 Subseq Hosp Care Lvl 2 Diagnoses Hip fracture, right S72.001D Encounter type: subsequent encounter Fracture type: closed Fracture healing: with routine healing HTN (hypertension) I10 Hypertension type: essential hypertension Chronic kidney disease, stage 3a N18.3 Atrial fibrillation I48.21 Atrial fibrillation type: permanent Dementia F03.90 Dementia type: unspecified type Dementia behavioral disturbance: without behavioral disturbance UTI (urinary tract infection) N30.00 Urinary tract infection type: acute cystitis Hematuria presence: without hematuria DVT prophylaxis Z29.9 (1) Hip fracture, right Encounter type: subsequent encounter Fracture type: closed Fracture healing: with routine healing Qualified Code(s): S72.001D - Fracture of unspecified part of neck of right femur, subsequent encounter for closed fracture with routine healing (2) HTN (hypertension) Hypertension type: essential hypertension Qualified Code(s): I10 - Essential (primary) hypertension (3) Atrial fibrillation Atrial fibrillation type: permanent Qualified Code(s): I48.21 - Permanent atrial fibrillation (4) Dementia Dementia type: unspecified type Dementia behavioral disturbance: without behavioral disturbance Qualified Code(s): F03.90 - Unspecified dementia without behavioral disturbance (5) UTI (urinary tract infection) Urinary tract infection type: acute cystitis Hematuria presence: without hematuria Qualified Code(s): N30.00 - Acute cystitis without hematuria
--- NOTE | 2020-02-19 15:46 | Progress Notes ---
DATE: 02/19/2020 SUBJECTIVE: An 84-year-old female postoperative day 1 from right cemented bipolar hip arthroplasty for fracture. She is doing pretty well. Really not much pain while lying in bed, but was pretty painful when she was ambulating earlier. No new complaints. No chest pain or shortness of breath. Not feeling lightheaded in bed. She did get a little dizzy and lightheaded when she got up and walked. OBJECTIVE: VITAL SIGNS: Temperature 36.6. Vital signs stable. GENERAL: Shows a pleasant elderly female. She is sitting up in bed, looks quite comfortable. EXTREMITIES: Examination of the right hip and leg reveals the leg lengths to be equal. She can dorsiflex and plantarflex her foot appropriately. She is neurologically intact. Thigh is soft and supple. Dressing is in place. No drainage. LABORATORY DATA: Hemoglobin 12.2. Hematocrit 37.7. White cell count 12.83. Electrolytes are stable. ASSESSMENT: An 84-year-old white female postoperative day 1 from right cemented bipolar hip arthroplasty for fracture. She is doing pretty well. Having some pain with therapy, which is to be expected. Her hip is located. She is neurologically intact. PLAN: 1. DVT prophylaxis including thigh-high TEDs, SCDs, and we would recommend a baby aspirin twice a day for the next 6 weeks. 2. PT/OT. She can weightbear as tolerated. She does need to obey hip precautions. 3. Pain control, doing currently okay. We will need to try and limit narcotics to avoid confusion. I would recommend Tylenol regularly and use tramadol in addition p.r.n. 4. Disposition: She is hoping to go to [facility] for a brief rehab visit once medically stable. She is orthopedically okay for discharge any time. I need to see her back in 2-3 weeks out from her surgery date. Any orthopedic questions can be directed to me at [phone].
[2020-02-19] MEDS ORDERED: ERGOCALCIFEROL 50,000 UNITS CAP PO ONE (16:00)
[2020-02-19] MEDS: RIVAROXABAN 15 MG TAB PO SCH (21:40)
[2020-02-19] MEDS: QUETIAPINE FUMARATE 25 MG TABLET PO SCH (21:41)
[2020-02-19] MEDS: DONEPEZIL HCL 10 MG TAB PO SCH (21:44)
[2020-02-19] MEDS: DOCUSATE SODIUM/SENNA 50/8.6MG TAB PO SCH (21:52)
[2020-02-20 05:57] LABS: Basophils # (auto) 0.01 K/uL (0-0.2); Basophils % (auto) 0.1 %; Eosinophils # (auto) 0.08 K/uL (0-0.5); Eosinophils % (auto) 0.8 %; Hematocrit (blood only) 37.1 % (37-47); Hemoglobin 11.6 g/dL (12.0-16.0); Immature Granulocytes # (auto) 0.03 K/uL (0.00-0.02); Immature Granulocytes % (auto) 0.3 %; Lymphocytes # (auto) 0.99 K/uL (1.2-3.4); Lymphocytes % (auto) 9.9 %; Mean Corpuscular Hemoglobin 29.9 pg (25-34); Mean Corpuscular Hgb Conc 31.3 g/dL (32-36); Mean Corpuscular Volume 95.6 fL (80-100); Mean Platelet Volume 9.8 fL (7.4-10.4); Monocytes # (auto) 1.07 K/uL (0.11-0.59); Monocytes % (auto) 10.7 %; Neutrophils % (auto) 78.2 %; Platelet Count 145 K/uL (130-400); RDW Coefficient of Variation 16.5 % (11.5-14.5); Red Blood Count 3.88 M/uL (4.2-5.4); White Blood Count 9.98 K/uL (4.8-10.8)
[2020-02-20 06:21] LABS: BUN Creatinine Ratio 23.7 (10-20); Calcium 8.3 mg/dl (8.5-10.1); Est GFR (African American) 51.5; Est GFR (Non-African American) 44.4; Potassium 4.5 mmol/L (3.5-5.1)
--- NOTE | 2020-02-20 07:26 | Orthopedic Progress Note ---
Date of Service February 20, 2020 Assessment & Plan (1) History of right hip hemiarthroplasty: She is having pain with therapy and weightbearing. This is not too unusual but she said she had no pain after her other hip surgery. Continue with the therapy. Continue hip precautions. Continue discharge planning, specifically she would like to go [facility] if possible. We will see her back about 2 weeks postop. Continue current DVT prophylaxis. Subjective 84-year-old female postop day 2 from a right hip cemented bipolar hemiarthroplasty. She said she has quite a bit of hip pain with therapy and weightbearing. No pain at rest in bed at this time. Denies any chest pain or shortness of breath. Physical Exam Physical Exam: She is alert. No distress. Dressing is clean and intact to her right hip area. She is able to dorsiflex and plantar flex appropriately. She is neurovascular intact. Leg is well aligned. She does report some hip pain with gentle rotation of the hip. Results & Data ([facility]) Vital Signs (Past 12 Hours) Vital Signs Temp Pulse Resp BP Pulse Ox Pulse Ox 02/19/20 23:30 36.4 C L 89 15 124/85 93 02/19/20 23:15 93 PG Care Time/CCT Total # of Minutes Spent Total Time Spent with Patient: Total time spent is greater than 50% in coordination of care (as documented) at patient's floor/unit and/or counseling patient: Coding Level of Care Code None Diagnoses History of right hip hemiarthroplasty Z96.641
[2020-02-20] MEDS: MEMANTINE HCL 10 MG TAB PO SCH ×2 (10:08→21:20)
[2020-02-20] MEDS: FAMOTIDINE 20 MG TAB PO SCH ×2 (10:08→11:29)
[2020-02-20] MEDS: CALCIUM 600MG + VIT D 400 IU TAB PO SCH (10:08)
[2020-02-20] MEDS: FLUOXETINE HCL 20 MG CAP PO SCH (10:08)
[2020-02-20] MEDS: LORATADINE 10 MG TAB PO SCH ×2 (10:08→11:29)
[2020-02-20] MEDS: METOPROLOL TARTRATE 50 MG TAB PO SCH ×2 (10:08→10:22)
[2020-02-20] MEDS: cephALEXin 500 MG CAP PO SCH ×2 (10:08→21:19)
[2020-02-20] MEDS ORDERED: SODIUM CHLORIDE 0.9% 1000ML 500 ML IV ONE (11:41)
[2020-02-20] MEDS ORDERED: VALACYCLOVIR HCL 500 MG TABLET PO ONE (12:30)
--- NOTE | 2020-02-20 15:29 | Hospitalist Progress Note ---
Date of Service February 20, 2020 Assessment & Plan (1) Hypotension: SBP in the 80's this morning, felt weak and light headed eating and drinking well, encouraged her to continue this gave NSS 500mL bolus felt better back in bed, BP improved later in afternoon, 96 systolic hold metoprolol and norvasc (2) Acute blood loss as cause of postoperative anemia: Hb is acceptable at 11.6, but down from admission at 13.9 repeat tomorrow no signs of active bleeding (3) Hip fracture, right: osteoporotic s/p fall. had left hip fracture within the last 6 months also requiring ORIF. appreciate ortho consult and assistance. s/p ORIF 02/17, today is POD 2 pain control DVT proph - Xarelto PT, OT. will likely need rehab, CM looking into options and discussing with family 25-OH vit D is 31.1, will start supplementation patient with some pre-syncope today, mild hypotension gave 500mL NSS bolus, BP improved later in the day encourage oral intake (4) HTN (hypertension): hold metoprolol 50 BID due to low BP this morning amlodipine on hold due to low normal BP (5) Chronic kidney disease, stage 3a: baseline CrCl is 40s/50s Cr is 1.14 this morning (6) Atrial fibrillation: permanent typically on metoprolol bid for rate control and xarelto for anticoagulation hold metoprolol due to low BP, resume Xarelto (7) Dementia: cont namenda and aricept (8) UTI (urinary tract infection): urine cx 02/12 with pansensitive coag neg staph stop cipro change to keflex 500 BID x 3 more days then stop Rx (9) DVT prophylaxis: xarelto scds PT, OT likely to need rehab send COVID 19 screen (10) Herpes labialis: Valtrex 2000mg q12 x one day since the symptoms just started Admission and Anticipated Discharge Date Admission Date: February 18, 2020 Subjective patient felt light headed with activity, standing today her blood pressure was noted to be low at 89 systolic, her metoprolol had been held in the morning reviewed labs, Hb down slightly at 11.6 from 13.9 on admission WBC normal, Cr and electrolytes stable she is eating and drinking well c/o developing cold sore on right lip, says she gets them with stress, ordered Valtrex d/w high risk case manager, likely looking at SNF for rehab, will order COVID test to make sure she can be discharged Review of Systems Review of Systems: All systems reviewed & are unremarkable except as noted in HPI & below Constitutional: + weakness; no fever and no fatigue Ear, Nose, Mouth, Throat: + problem reported (cold sore right upper lip) Respiratory: no cough and no dyspnea Cardiovascular: no chest pain, no palpitations, no syncope and no edema Gastrointestinal: no abdominal pain, no nausea, no vomiting, no constipation and no diarrhea/loose stools Musculoskeletal: + joint pain (right hip) Physical Exam Constitutional: WD/WN, vitals as above Eyes: PERRL, conjunctivae normal, anicteric sclerae ENMT: external ear and nose normal, oropharynx normal (developing cold sore right upper lip) Neck: trachea midline, no thyromegaly Respiratory: normal respiratory effort, lungs clear to auscultation Cardiovascular: RRR, no murmur, no edema Gastrointestinal (Abdomen): normal bowel sounds, soft, nontender, no hepatosplenomegaly Musculoskeletal: Head/Neck/Chest: normocephalic, head atraumatic and neck supple Extremities: extremities normal to inspection, + limited ROM of extremities (right hip due to pain) and strength 5/5 throughout Skin: no rashes, warm and dry Neurologic: patellar DTR's 2+ bilat, sensation intact and PERRL, EOMI, accommodation nl, no face palsy, no dysarthria Psychiatric: A+Ox3, euthymic affect Lymphatic: no cervical or axillary lymphadenopathy Results & Data Results & Data ([facility]) Vital Signs (Past 12 Hours) Vital Signs Temp Pulse Resp BP Pulse Ox 02/20/20 15:15 36.5 C 86 18 96/62 L 92 02/20/20 10:10 79 89/58 L 02/20/20 10:09 108 H 100/65 02/20/20 07:49 36.4 C L 99 H 18 122/74 94 Laboratory Results Laboratory Results - last 24 hr 02/20/20 02/20/20 05:42 05:42 WBC 9.98 RBC 3.88 L Hgb 11.6 L Hct 37.1 MCV 95.6 MCH 29.9 MCHC 31.3 L RDW Std Deviation 58.0 H RDW Coeff of Kathi 16.5 H Plt Count 145 MPV 9.8 Immature Gran % (Auto) 0.3 Neut % (Auto) 78.2 Lymph % (Auto) 9.9 [place] % (Auto) 10.7 Eos % (Auto) 0.8 Baso % (Auto) 0.1 Neut # (Auto) 7.80 H Lymph # (Auto) 0.99 L [place] # (Auto) 1.07 H Eos # (Auto) 0.08 Baso # (Auto) 0.01 Immature Gran # (Auto) 0.03 H Sodium 135 L Potassium 4.5 Chloride 105 Carbon Dioxide 27 Anion Gap 3.0 BUN 27 H D Creatinine 1.14 Est Cr Clr Drug Dosing 35.0 Est GFR ( Amer) 51.5 Est GFR (Non-Af Amer) 44.4 BUN/Creatinine Ratio 23.7 H Glucose 124 H Calcium 8.3 L Medications Administered Current Inpatient Medications Acetaminophen (Tylenol) 650 mg PO Q4H PRN PRN Reason: pain/fever Stop: 03/19/20 00:59 Last Admin: 02/19/20 06:04 Dose: 650 mg Documented by: Al Hydrox/Mg Hydrox/Simethicone (Maalox) 30 ml PO Q6H PRN PRN Reason: Dyspepsia Stop: 03/19/20 00:59 Cephalexin HCl (Keflex) 500 mg PO BID [facility]; Protocol Stop: 02/24/20 08:59 Last Admin: 02/20/20 10:08 Dose: 500 mg Documented by: Donepezil HCl (Aricept) 10 mg PO [facility] Stop: 03/20/20 20:59 Last Admin: 02/19/20 21:44 Dose: 10 mg Documented by: Famotidine (Pepcid) 20 mg PO [facility] Stop: 03/20/20 09:59 Last Admin: 02/20/20 11:29 Dose: 20 mg Documented by: Fluoxetine HCl (Prozac) 20 mg PO [facility] Stop: 03/20/20 09:59 Last Admin: 02/20/20 10:08 Dose: 20 mg Documented by: Hydromorphone HCl (Dilaudid) 0.25 - 0.5 mg IV Q30M PRN PRN Reason: Moderate/Severe Pain Stop: 03/03/20 01:08 Loratadine (Claritin) 10 mg PO [facility] Stop: 03/20/20 09:59 Last Admin: 02/20/20 11:29 Dose: 10 mg Documented by: Magnesium Hydroxide (Milk Of Magnesia) 30 ml PO Q6H PRN PRN Reason: Constipation Stop: 03/19/20 00:59 Melatonin (Melatonin) 3 mg PO HS PRN PRN Reason: Sleep Stop: 03/19/20 21:08 Last Admin: 02/18/20 22:19 Dose: 3 mg Documented by: Memantine (Namenda) 10 mg PO BID [facility] Stop: 03/20/20 09:59 Last Admin: 02/20/20 10:08 Dose: 10 mg Documented by: Metoprolol Tartrate (Lopressor) 50 mg PO BID [facility] Stop: 03/19/20 08:59 Last Admin: 02/20/20 10:22 Dose: Not Given Documented by: Multivitamins/Minerals (Caltrate Plus) 1 tab PO QAM [facility] Stop: 03/21/20 08:59 Last Admin: 02/20/20 10:08 Dose: 1 tab Documented by: Naloxone HCl (Narcan) 0.1 mg IV UD PRN PRN Reason: Opiate Overdose Stop: 03/19/20 01:04 Naloxone HCl (Narcan) 0.1 mg IV UD PRN PRN Reason: Opioid Overdose Stop: 03/19/20 17:45 Ondansetron HCl (Zofran) 4 mg IV Q6H PRN PRN Reason: Nausea Stop: 03/19/20 00:59 Polyethylene Glycol (Miralax Powder Packet) 17 gm PO DAILY PRN PRN Reason: Constipation Stop: 03/19/20 00:59 Quetiapine Fumarate (Seroquel) 12.5 mg PO [facility] Stop: 03/20/20 20:59 Last Admin: 02/19/20 21:41 Dose: 12.5 mg Documented by: Rivaroxaban (Xarelto) 15 mg PO HS [facility] Stop: 03/20/20 20:59 Last Admin: 02/19/20 21:40 Dose: 15 mg Documented by: Senna/Docusate Sodium (Senokot S) 2 tab PO HS [facility] Stop: 03/19/20 20:59 Last Admin: 02/19/20 21:52 Dose: 2 tab Documented by: Valacyclovir HCl (Valtrex) 2,000 mg PO BID [facility] Stop: 02/20/20 21:01 PG Care Time/CCT Total # of Minutes Spent Total Time Spent with Patient: Total time spent is greater than 50% in coordination of care (as documented) at patient's floor/unit and/or counseling patient: Coding Level of Care Code 36777 Subseq Hosp Care Lvl 3 Diagnoses Hypotension I95.9 Acute blood loss as cause of postoperative anemia D62 Hip fracture, right S72.001D Encounter type: subsequent encounter Fracture type: closed Fracture healing: with routine healing HTN (hypertension) I10 Hypertension type: essential hypertension Chronic kidney disease, stage 3a N18.3 Atrial fibrillation I48.21 Atrial fibrillation type: permanent Dementia F03.90 Dementia type: unspecified type Dementia behavioral disturbance: without behavioral disturbance UTI (urinary tract infection) N30.00 Urinary tract infection type: acute cystitis Hematuria presence: without hematuria DVT prophylaxis Z29.9 Herpes labialis B00.1 (1) Hip fracture, right Encounter type: subsequent encounter Fracture type: closed Fracture healing: with routine healing Qualified Code(s): S72.001D - Fracture of unspecified part of neck of right femur, subsequent encounter for closed fracture with routine healing (2) HTN (hypertension) Hypertension type: essential hypertension Qualified Code(s): I10 - Essential (primary) hypertension (3) Atrial fibrillation Atrial fibrillation type: permanent Qualified Code(s): I48.21 - Permanent atrial fibrillation (4) Dementia Dementia type: unspecified type Dementia behavioral disturbance: without behavioral disturbance Qualified Code(s): F03.90 - Unspecified dementia without behavioral disturbance (5) UTI (urinary tract infection) Urinary tract infection type: acute cystitis Hematuria presence: without hematuria Qualified Code(s): N30.00 - Acute cystitis without hematuria
[2020-02-20] MEDS ORDERED: VALACYCLOVIR HCL 500 MG TABLET PO SCH (21:00)
[2020-02-20] MEDS: QUETIAPINE FUMARATE 25 MG TABLET PO SCH (21:19)
[2020-02-20] MEDS: RIVAROXABAN 15 MG TAB PO SCH (21:19)
[2020-02-20] MEDS: DONEPEZIL HCL 10 MG TAB PO SCH (21:19)
[2020-02-20] MEDS: DOCUSATE SODIUM/SENNA 50/8.6MG TAB PO SCH (21:20)
[2020-02-21 07:00] LABS: Hematocrit (blood only) 34.8 % (37-47); Mean Corpuscular Hemoglobin 30.2 pg (25-34); Mean Corpuscular Hgb Conc 31.6 g/dL (32-36); Mean Corpuscular Volume 95.6 fL (80-100); Mean Platelet Volume 10.1 fL (7.4-10.4); Platelet Count 141 K/uL (130-400); RDW Coefficient of Variation 16.2 % (11.5-14.5); RDW Standard Deviation 57.4 fL (36.4-46.3); Red Blood Count 3.64 M/uL (4.2-5.4); White Blood Count 7.87 K/uL (4.8-10.8)
[2020-02-21 07:30] LABS: BUN Creatinine Ratio 28.2 (10-20); Calcium 8.4 mg/dl (8.5-10.1); Creatinine Clr Calc Pharmacy 51.2 ml/min; Est GFR (African American) 81.5; Est GFR (Non-African American) 70.3; Potassium 4.4 mmol/L (3.5-5.1)
[2020-02-21] MEDS: cephALEXin 500 MG CAP PO SCH ×2 (08:33→21:03)
[2020-02-21] MEDS: FAMOTIDINE 20 MG TAB PO SCH (08:33)
[2020-02-21] MEDS: MEMANTINE HCL 10 MG TAB PO SCH ×2 (08:33→21:04)
[2020-02-21] MEDS: CALCIUM 600MG + VIT D 400 IU TAB PO SCH (08:33)
[2020-02-21] MEDS: FLUOXETINE HCL 20 MG CAP PO SCH (08:33)
[2020-02-21] MEDS: LORATADINE 10 MG TAB PO SCH (08:33)
[2020-02-21] MEDS: METOPROLOL TARTRATE 25 MG TAB PO SCH ×2 (08:36→21:04)
--- NOTE | 2020-02-21 09:10 | Progress Notes ---
DATE: 02/21/2020 SUBJECTIVE: An 84-year-old female now postop day 3 from a right cemented bipolar hip arthroplasty for fracture. She is doing pretty well. Pain seems to be getting a little bit better. No pain at all while just lying in bed. Pain with weightbearing. No chest pain or shortness of breath. Not feeling dizzy or lightheaded. OBJECTIVE: VITAL SIGNS: Temperature 36.7. Vital signs stable. GENERAL: Shows a pleasant elderly female. I had to wake her this morning. She looks comfortable. EXTREMITIES: Examination of the right hip and leg reveals the leg lengths to be equal. Her dressing is clean, dry and intact. Thigh is soft and supple. She is neurologically intact. LABORATORY DATA: Hemoglobin 11.0. Hematocrit 34.8. Electrolytes are stable. ASSESSMENT: An 84-year-old female postop day 3 from a right cemented bipolar hip arthroplasty for fracture. Orthopedically, she is doing well. Pain is controlled. PLAN: 1. DVT prophylaxis including thigh-high TEDs, SCDs, and would recommend a baby aspirin twice a day for the next 6 weeks. 2. PT/OT. She can weightbear as tolerated. Right total hip protocol. 3. Pain control, doing well with current pain regimen. 4. Disposition: She is orthopedically okay for discharge any time medically stable. I need to see her back 2 weeks out from surgery. Any orthopedic questions can be directed to me at [phone].
--- NOTE | 2020-02-21 15:06 | Hospitalist Progress Note ---
Date of Service February 21, 2020 Assessment & Plan (1) Hypotension: SBP in the 80's morning of 02/19, felt weak and light headed eating and drinking well, encouraged her to continue this gave NSS 500mL bolus BP better today, >100 systolic consistently add back Lopressor but at reduced dose of 25mg BID, may have been on too much continue to monitor but doing well, should be stable for discharge tomorrow (2) Acute blood loss as cause of postoperative anemia: Hb is acceptable at 11.0, but down from admission at 13.9 no signs of active bleeding (3) Hip fracture, right: osteoporotic s/p fall. had left hip fracture within the last 6 months also requiring ORIF. appreciate ortho consult and assistance. s/p ORIF 02/17, today is POD 3 pain control DVT proph - Xarelto PT, OT. will likely need rehab, CM looking into [facility] tomorrow, should be stable 25-OH vit D is 31.1, will start supplementation 50,000 units given weekly for 8 weeks then resume daily supplementation (4) HTN (hypertension): resume Lopressor at 25mg BID amlodipine on hold due to low normal BP (5) Chronic kidney disease, stage 3a: baseline CrCl is 40s/50s Cr is 0.7 this morning (6) Atrial fibrillation: permanent typically on metoprolol bid for rate control and xarelto for anticoagulation resume Lopressor 25mg BID, resume Xarelto (7) Dementia: cont namenda and aricept (8) UTI (urinary tract infection): urine cx 02/12 with pansensitive coag neg staph stop cipro change to keflex 500 BID x 2 more days then stop Rx (9) DVT prophylaxis: xarelto scds PT, OT likely to need rehab send COVID 19 screen (10) Herpes labialis: Valtrex 2000mg q12 x one day since the symptoms just started Admission and Anticipated Discharge Date Admission Date: February 18, 2020 Anticipated date of discharge: 02/22/20 Subjective patient feeling better today, walked in the halls, no light headed sensation blood pressure is preserved today, added back lower dose of metoprolol eating well, drinking a lot reviewed labs, hb down slightly at 11, WBC normal, BMP normal discussed going to rehab tomorrow, she agrees to [facility] Review of Systems Review of Systems: All systems reviewed & are unremarkable except as noted in HPI & below Musculoskeletal: + joint pain (right hip, getting better) Physical Exam Constitutional: WD/WN, vitals as above Eyes: PERRL, conjunctivae normal, anicteric sclerae ENMT: external ear and nose normal, oropharynx normal Neck: trachea midline, no thyromegaly Respiratory: normal respiratory effort, lungs clear to auscultation Cardiovascular: RRR, no murmur, no edema Gastrointestinal (Abdomen): normal bowel sounds, soft, nontender, no hepatosplenomegaly Musculoskeletal: Head/Neck/Chest: normocephalic, head atraumatic and neck supple Extremities: extremities normal to inspection, + limited ROM of extremities (right hip due to pain) and strength 5/5 throughout Skin: no rashes, warm and dry Neurologic: patellar DTR's 2+ bilat, sensation intact and PERRL, EOMI, accommodation nl, no face palsy, no dysarthria Psychiatric: A+Ox3, euthymic affect Lymphatic: no cervical or axillary lymphadenopathy Results & Data Results & Data ([facility]) Vital Signs (Past 12 Hours) Vital Signs Temp Pulse Resp BP Pulse Ox 02/21/20 07:36 36.7 C 98 H 16 110/74 92 Laboratory Results Laboratory Results - last 24 hr 02/20/20 02/21/20 02/21/20 16:35 06:34 06:34 WBC 7.87 RBC 3.64 L Hgb 11.0 L Hct 34.8 L MCV 95.6 MCH 30.2 MCHC 31.6 L RDW Std Deviation 57.4 H RDW Coeff of Kathi 16.2 H Plt Count 141 MPV 10.1 Sodium 138 Potassium 4.4 Chloride 108 H Carbon Dioxide 25 Anion Gap 6.0 BUN 22 H Creatinine 0.78 D Est Cr Clr Drug Dosing 51.2 Est GFR ( Amer) 81.5 Est GFR (Non-Af Amer) 70.3 BUN/Creatinine Ratio 28.2 H Glucose 107 H Calcium 8.4 L SARS-CoV-2 RNA (RT-PCR) Pending Medications Administered Current Inpatient Medications Acetaminophen (Tylenol) 650 mg PO Q4H PRN PRN Reason: pain/fever Stop: 03/19/20 00:59 Last Admin: 02/19/20 06:04 Dose: 650 mg Documented by: Al Hydrox/Mg Hydrox/Simethicone (Maalox) 30 ml PO Q6H PRN PRN Reason: Dyspepsia Stop: 03/19/20 00:59 Cephalexin HCl (Keflex) 500 mg PO BID [facility]PL[facility]; Protocol Stop: 02/24/20 08:59 Last Admin: 02/21/20 08:33 Dose: 500 mg Documented by: Donepezil HCl (Aricept) 10 mg PO HS [facility]PLACED BY [facility] Stop: 03/20/20 20:59 Last Admin: 02/20/20 21:19 Dose: 10 mg Documented by: Famotidine (Pepcid) 20 mg PO [facility] Stop: 03/20/20 09:59 Last Admin: 02/21/20 08:33 Dose: 20 mg Documented by: Fluoxetine HCl (Prozac) 20 mg PO QAM [facility]PL[facility] Stop: 03/20/20 09:59 Last Admin: 02/21/20 08:33 Dose: 20 mg Documented by: Hydromorphone HCl (Dilaudid) 0.25 - 0.5 mg IV Q30M PRN PRN Reason: Moderate/Severe Pain Stop: 03/03/20 01:08 Loratadine (Claritin) 10 mg PO [facility] Stop: 03/20/20 09:59 Last Admin: 02/21/20 08:33 Dose: 10 mg Documented by: Magnesium Hydroxide (Milk Of Magnesia) 30 ml PO Q6H PRN PRN Reason: Constipation Stop: 03/19/20 00:59 Melatonin (Melatonin) 3 mg PO PRN PRN Reason: Sleep Stop: 03/19/20 21:08 Last Admin: 02/18/20 22:19 Dose: 3 mg Documented by: Memantine (Namenda) 10 mg PO BID [facility]PL[facility] Stop: 03/20/20 09:59 Last Admin: 02/21/20 08:33 Dose: 10 mg Documented by: Metoprolol Tartrate (Lopressor) 25 mg PO BID [facility]PL[facility] Stop: 03/22/20 08:59 Last Admin: 02/21/20 08:36 Dose: 25 mg Documented by: Multivitamins/Minerals (Caltrate Plus) 1 tab PO [facility] Stop: 03/21/20 08:59 Last Admin: 02/21/20 08:33 Dose: 1 tab Documented by: Naloxone HCl (Narcan) 0.1 mg IV UD PRN PRN Reason: Opiate Overdose Stop: 03/19/20 01:04 Naloxone HCl (Narcan) 0.1 mg IV UD PRN PRN Reason: Opioid Overdose Stop: 03/19/20 17:45 Ondansetron HCl (Zofran) 4 mg IV Q6H PRN PRN Reason: Nausea Stop: 03/19/20 00:59 Polyethylene Glycol (Miralax Powder Packet) 17 gm PO DAILY PRN PRN Reason: Constipation Stop: 03/19/20 00:59 Quetiapine Fumarate (Seroquel) 12.5 mg PO [facility] Stop: 03/20/20 20:59 Last Admin: 02/20/20 21:19 Dose: 12.5 mg Documented by: Rivaroxaban (Xarelto) 15 mg PO [facility] Stop: 03/20/20 20:59 Last Admin: 02/20/20 21:19 Dose: 15 mg Documented by: Senna/Docusate Sodium (Senokot S) 2 tab PO [facility] Stop: 03/19/20 20:59 Last Admin: 02/20/20 21:20 Dose: Not Given Documented by: PG Care Time/CCT Total # of Minutes Spent Total Time Spent with Patient: Total time spent is greater than 50% in coordination of care (as documented) at patient's floor/unit and/or counseling patient: Coding Level of Care Code 81175 Subseq Hosp Care Lvl 3 Diagnoses Hypotension I95.9 Acute blood loss as cause of postoperative anemia D62 Hip fracture, right S72.001D Encounter type: subsequent encounter Fracture type: closed Fracture healing: with routine healing HTN (hypertension) I10 Hypertension type: essential hypertension Chronic kidney disease, stage 3a N18.3 Atrial fibrillation I48.21 Atrial fibrillation type: permanent Dementia F03.90 Dementia type: unspecified type Dementia behavioral disturbance: without behavioral disturbance UTI (urinary tract infection) N30.00 Urinary tract infection type: acute cystitis Hematuria presence: without hematuria DVT prophylaxis Z29.9 Herpes labialis B00.1 (1) Hip fracture, right Encounter type: subsequent encounter Fracture type: closed Fracture healing: with routine healing Qualified Code(s): S72.001D - Fracture of unspecified part of neck of right femur, subsequent encounter for closed fracture with routine healing (2) HTN (hypertension) Hypertension type: essential hypertension Qualified Code(s): I10 - Essential (primary) hypertension (3) Atrial fibrillation Atrial fibrillation type: permanent Qualified Code(s): I48.21 - Permanent atrial fibrillation (4) Dementia Dementia type: unspecified type Dementia behavioral disturbance: without behavioral disturbance Qualified Code(s): F03.90 - Unspecified dementia without behavioral disturbance (5) UTI (urinary tract infection) Urinary tract infection type: acute cystitis Hematuria presence: without hematuria Qualified Code(s): N30.00 - Acute cystitis without hematuria
[2020-02-21] MEDS: DOCUSATE SODIUM/SENNA 50/8.6MG TAB PO SCH (21:01)
[2020-02-21] MEDS: QUETIAPINE FUMARATE 25 MG TABLET PO SCH (21:02)
[2020-02-21] MEDS: DONEPEZIL HCL 10 MG TAB PO SCH (21:03)
[2020-02-21] MEDS: RIVAROXABAN 15 MG TAB PO SCH (21:04)
[2020-02-22 05:49] LABS: Hematocrit (blood only) 37.3 % (37-47); Hemoglobin 12.3 g/dL (12.0-16.0); Mean Corpuscular Hemoglobin 31.1 pg (25-34); Mean Corpuscular Volume 94.4 fL (80-100); Mean Platelet Volume 10.2 fL (7.4-10.4); Platelet Count 178 K/uL (130-400); RDW Coefficient of Variation 16.1 % (11.5-14.5); RDW Standard Deviation 56.1 fL (36.4-46.3); Red Blood Count 3.95 M/uL (4.2-5.4); White Blood Count 7.71 K/uL (4.8-10.8)
[2020-02-22 06:25] LABS: BUN Creatinine Ratio 23.9 (10-20); Calcium 9.7 mg/dl (8.5-10.1); Creatinine Clr Calc Pharmacy 37.6 ml/min; Est GFR (African American) 56.2; Est GFR (Non-African American) 48.5
[2020-02-22] MEDS: FAMOTIDINE 20 MG TAB PO SCH (09:00)
[2020-02-22] MEDS: LORATADINE 10 MG TAB PO SCH (09:00)
[2020-02-22] MEDS: MEMANTINE HCL 10 MG TAB PO SCH ×2 (09:00→22:15)
[2020-02-22] MEDS: CALCIUM 600MG + VIT D 400 IU TAB PO SCH (09:01)
[2020-02-22] MEDS: cephALEXin 500 MG CAP PO SCH ×2 (09:01→22:14)
[2020-02-22] MEDS: FLUOXETINE HCL 20 MG CAP PO SCH (09:02)
[2020-02-22] MEDS: METOPROLOL TARTRATE 50 MG TAB PO SCH ×2 (09:03→22:14)
[2020-02-22] MEDS: AMLODIPINE BESYLATE 5 MG TAB PO SCH (09:03)
--- NOTE | 2020-02-22 09:40 | Progress Notes ---
DATE: 02/22/2020 SUBJECTIVE: An 84-year-old female now 4 days out from a right cemented bipolar hip arthroplasty for fracture. She is doing pretty well. Pain seems to be getting a little bit better. No new complaints. OBJECTIVE: VITAL SIGNS: Temperature 36.7. Vital signs stable. GENERAL: Shows a pleasant elderly female. She is lying in bed, looks comfortable. EXTREMITIES: Examination of the right hip and leg reveals the leg lengths to be equal. Dressing is clean, dry and intact. She can dorsiflex and plantarflex her foot appropriately. She is neurologically intact. LABORATORY DATA: Hemoglobin 12.3. Hematocrit 37.3. Electrolytes are stable. ASSESSMENT: An 84-year-old female postop day 4 from right cemented bipolar hip arthroplasty for fracture. She is orthopedically stable. Pain is reasonably well controlled. Hip is located. She is neurologically intact. PLAN: 1. DVT prophylaxis including thigh-high TEDs, SCDs. She can be back on her normal dose of Xarelto. I misdictated yesterday she was taking aspirin and she is back on Xarelto and she can be back on a full dose at any time. 2. PT/OT. Weight bear as tolerated. Right total hip protocol. 3. Pain control seems to be doing pretty well with current pain regimen. 4. Disposition: She is orthopedically okay for discharge at any time medically stable. She is open to go to rehab. I need to see her back somewhere between 2-3 weeks out from surgery. Any orthopedic questions can be directed to me at [phone].
--- NOTE | 2020-02-22 15:58 | Hospitalist Progress Note ---
Date of Service February 22, 2020 Assessment & Plan (1) Hypotension: SBP in the 80's morning of 02/19, felt weak and light headed eating and drinking well, encouraged her to continue this gave NSS 500mL bolus BP elevated today, hypotension resolved add back home regimen of BP medications (2) Acute blood loss as cause of postoperative anemia: hb trending up to 12 today no signs of active bleeding (3) Hip fracture, right: osteoporotic s/p fall. had left hip fracture within the last 6 months also requiring ORIF. appreciate ortho consult and assistance. s/p ORIF 02/17, today is POD 4 pain control DVT proph - Xarelto PT, OT. will need rehab, BLANK looking into [facility], needs negative COVID 19, was taken 02/19, still pending 25-OH vit D is 31.1, will start supplementation 50,000 units given weekly for 8 weeks then resume daily supplementation (4) HTN (hypertension): resume Lopressor at 50mg BID resume Norvasc (5) Chronic kidney disease, stage 3a: baseline CrCl is 40s/50s Cr is at baseline (6) Atrial fibrillation: permanent typically on metoprolol bid for rate control and xarelto for anticoagulation resume Lopressor 50mg BID, resume Xarelto (7) Dementia: cont namenda and aricept (8) UTI (urinary tract infection): urine cx 02/12 with pansensitive coag neg staph stop cipro change to keflex 500 BID x 1 more day (9) DVT prophylaxis: xarelto scds PT, OT likely to need rehab send COVID 19 screen (10) Herpes labialis: Valtrex 2000mg q12 x one day since the symptoms just started Admission and Anticipated Discharge Date Admission Date: February 18, 2020 Subjective patient feeling really good today, no issues ambulating well, less pain in the right hip blood pressure actually elevated today, added back her full regimen of blood pressure medications d/w Justen PARSON can take her, awaiting negative COVID test, still pending all day will try to d/c tomorrow Review of Systems Review of Systems: All systems reviewed & are unremarkable except as noted in HPI & below Musculoskeletal: + joint pain (right hip) Physical Exam Constitutional: WD/WN, vitals as above Eyes: PERRL, conjunctivae normal, anicteric sclerae ENMT: external ear and nose normal, oropharynx normal Neck: trachea midline, no thyromegaly Respiratory: normal respiratory effort, lungs clear to auscultation Cardiovascular: RRR, no murmur, no edema Gastrointestinal (Abdomen): normal bowel sounds, soft, nontender, no hepatosplenomegaly Musculoskeletal: Head/Neck/Chest: normocephalic, head atraumatic and neck supple Extremities: extremities normal to inspection, + limited ROM of extremities (right hip due to pain) and strength 5/5 throughout Skin: no rashes, warm and dry Neurologic: patellar DTR's 2+ bilat, sensation intact and PERRL, EOMI, accommodation nl, no face palsy, no dysarthria Psychiatric: A+Ox3, euthymic affect Lymphatic: no cervical or axillary lymphadenopathy Results & Data Results & Data ([facility]) Vital Signs (Past 12 Hours) Vital Signs Temp Pulse Pulse Resp BP Pulse Ox 02/22/20 08:58 93 H 109/71 02/22/20 07:17 36.7 C 95 H 16 152/85 H 94 Laboratory Results Laboratory Results - last 24 hr 02/22/20 02/22/20 05:23 05:23 WBC 7.71 RBC 3.95 L Hgb 12.3 Hct 37.3 MCV 94.4 MCH 31.1 MCHC 33.0 RDW Std Deviation 56.1 H RDW Coeff of Kathi 16.1 H Plt Count 178 MPV 10.2 Sodium 141 Potassium 4.0 Chloride 108 H Carbon Dioxide 29 Anion Gap 4.0 BUN 25 H Creatinine 1.06 Est Cr Clr Drug Dosing 37.6 Est GFR ( Amer) 56.2 Est GFR (Non-Af Amer) 48.5 BUN/Creatinine Ratio 23.9 H Glucose 102 H Calcium 9.7 D Medications Administered Current Inpatient Medications Acetaminophen (Tylenol) 650 mg PO Q4H PRN PRN Reason: pain/fever Stop: 03/19/20 00:59 Last Admin: 02/19/20 06:04 Dose: 650 mg Documented by: Al Hydrox/Mg Hydrox/Simethicone (Maalox) 30 ml PO Q6H PRN PRN Reason: Dyspepsia Stop: 03/19/20 00:59 Amlodipine Besylate (Norvasc) 5 mg PO QAM MELLISSA Stop: 03/23/20 08:59 Last Admin: 02/22/20 09:03 Dose: 5 mg Documented by: Cephalexin HCl (Keflex) 500 mg PO BID [facility]; Protocol Stop: 02/24/20 08:59 Last Admin: 02/22/20 09:01 Dose: 500 mg Documented by: Donepezil HCl (Aricept) 10 mg PO HS [facility] Stop: 03/20/20 20:59 Last Admin: 02/21/20 21:03 Dose: 10 mg Documented by: Famotidine (Pepcid) 20 mg PO [facility] Stop: 03/20/20 09:59 Last Admin: 02/22/20 09:00 Dose: 20 mg Documented by: Fluoxetine HCl (Prozac) 20 mg PO [facility] Stop: 03/20/20 09:59 Last Admin: 02/22/20 09:02 Dose: 20 mg Documented by: Hydromorphone HCl (Dilaudid) 0.25 - 0.5 mg IV Q30M PRN PRN Reason: Moderate/Severe Pain Stop: 03/03/20 01:08 Loratadine (Claritin) 10 mg PO [facility] Stop: 03/20/20 09:59 Last Admin: 02/22/20 09:00 Dose: 10 mg Documented by: Magnesium Hydroxide (Milk Of Magnesia) 30 ml PO Q6H PRN PRN Reason: Constipation Stop: 03/19/20 00:59 Melatonin (Melatonin) 3 mg PO HS PRN PRN Reason: Sleep Stop: 03/19/20 21:08 Last Admin: 02/18/20 22:19 Dose: 3 mg Documented by: Memantine (Namenda) 10 mg PO BID [facility] Stop: 03/20/20 09:59 Last Admin: 02/22/20 09:00 Dose: 10 mg Documented by: Metoprolol Tartrate (Lopressor) 50 mg PO BID [facility] Stop: 03/23/20 08:59 Last Admin: 02/22/20 09:03 Dose: 50 mg Documented by: Multivitamins/Minerals (Caltrate Plus) 1 tab PO [facility] Stop: 03/21/20 08:59 Last Admin: 02/22/20 09:01 Dose: 1 tab Documented by: Naloxone HCl (Narcan) 0.1 mg IV UD PRN PRN Reason: Opiate Overdose Stop: 03/19/20 01:04 Naloxone HCl (Narcan) 0.1 mg IV UD PRN PRN Reason: Opioid Overdose Stop: 03/19/20 17:45 Ondansetron HCl (Zofran) 4 mg IV Q6H PRN PRN Reason: Nausea Stop: 03/19/20 00:59 Polyethylene Glycol (Miralax Powder Packet) 17 gm PO DAILY PRN PRN Reason: Constipation Stop: 03/19/20 00:59 Quetiapine Fumarate (Seroquel) 12.5 mg PO [facility] Stop: 03/20/20 20:59 Last Admin: 02/21/20 21:02 Dose: 12.5 mg Documented by: Rivaroxaban (Xarelto) 15 mg PO [facility] Stop: 03/20/20 20:59 Last Admin: 02/21/20 21:04 Dose: 15 mg Documented by: Senna/Docusate Sodium (Senokot S) 2 tab PO [facility] Stop: 03/19/20 20:59 Last Admin: 02/21/20 21:01 Dose: Not Given Documented by: PG Care Time/CCT Total # of Minutes Spent Total Time Spent with Patient: Total time spent is greater than 50% in coordination of care (as documented) at patient's floor/unit and/or counseling patient: Coding Level of Care Code 41648 Subseq Hosp Care Lvl 2 Diagnoses Hypotension I95.9 Acute blood loss as cause of postoperative anemia D62 Hip fracture, right S72.001D Encounter type: subsequent encounter Fracture type: closed Fracture healing: with routine healing HTN (hypertension) I10 Hypertension type: essential hypertension Chronic kidney disease, stage 3a N18.3 Atrial fibrillation I48.21 Atrial fibrillation type: permanent Dementia F03.90 Dementia type: unspecified type Dementia behavioral disturbance: without behavioral disturbance UTI (urinary tract infection) N30.00 Urinary tract infection type: acute cystitis Hematuria presence: without hematuria DVT prophylaxis Z29.9 Herpes labialis B00.1 (1) Hip fracture, right Encounter type: subsequent encounter Fracture type: closed Fracture healing: with routine healing Qualified Code(s): S72.001D - Fracture of unspecified part of neck of right femur, subsequent encounter for closed fracture with routine healing (2) HTN (hypertension) Hypertension type: essential hypertension Qualified Code(s): I10 - Essential (primary) hypertension (3) Atrial fibrillation Atrial fibrillation type: permanent Qualified Code(s): I48.21 - Permanent atrial fibrillation (4) Dementia Dementia type: unspecified type Dementia behavioral disturbance: without behavioral disturbance Qualified Code(s): F03.90 - Unspecified dementia without behavioral disturbance (5) UTI (urinary tract infection) Urinary tract infection type: acute cystitis Hematuria presence: without hematuria Qualified Code(s): N30.00 - Acute cystitis without hematuria
[2020-02-22] MEDS: DONEPEZIL HCL 10 MG TAB PO SCH (22:13)
[2020-02-22] MEDS: DOCUSATE SODIUM/SENNA 50/8.6MG TAB PO SCH (22:15)
[2020-02-22] MEDS: RIVAROXABAN 15 MG TAB PO SCH (22:15)
[2020-02-22] MEDS: QUETIAPINE FUMARATE 25 MG TABLET PO SCH (22:15)
[2020-02-23] MEDS: CALCIUM 600MG + VIT D 400 IU TAB PO SCH (08:26)
[2020-02-23] MEDS: METOPROLOL TARTRATE 50 MG TAB PO SCH (08:27)
[2020-02-23] MEDS: LORATADINE 10 MG TAB PO SCH (08:27)
[2020-02-23] MEDS: cephALEXin 500 MG CAP PO SCH (08:27)
[2020-02-23] MEDS: FAMOTIDINE 20 MG TAB PO SCH (08:28)
[2020-02-23] MEDS: AMLODIPINE BESYLATE 5 MG TAB PO SCH (08:28)
[2020-02-23] MEDS: MEMANTINE HCL 10 MG TAB PO SCH (08:28)
[2020-02-23] MEDS: FLUOXETINE HCL 20 MG CAP PO SCH (08:29)
--- NOTE | 2020-02-23 09:03 | Discharge Summary ---
Date of Service February 23, 2020 Admission HPI Per Admitting Provider Nat Villavicencio is a 84 yo female who presented to the emergency after falling when she was walking up a hill in the wet grass. She landed on her right hip. She was camping with her family when that happened. She had previously had a hip fracture in her left hip that was surgically repaired in [place]. Her hip pain is 4/10 when not moving and 10/10 when she is walking on it. The pain is radiating down her leg. She is on Xarelto for atrial fibrillation. She last took Xarelto on 02/15 in the evening. She recently had a bladder infection and was started on Bactrim on Tuesday. She is here with her daughter Miriam who would like to be informed of any surgical plans cell#: [phone]. PMx. Hiatal hernia, Atrial fibrillation, HTN, kidney disease, history of hysterectomy Principal Diagnosis Hip fracture from fall Discharge Exam Constitutional WD/WN, vitals as above Eyes PERRL, conjunctivae normal, anicteric sclerae ENMT external ear and nose normal, oropharynx normal Neck trachea midline, no thyromegaly Respiratory normal respiratory effort, lungs clear to auscultation Cardiovascular RRR, no murmur, no edema Gastrointestinal (Abdomen) normal bowel sounds, soft, nontender, no hepatosplenomegaly Musculoskeletal Head/Neck/Chest: normocephalic, head atraumatic and neck supple Extremities: extremities normal to inspection, + limited ROM of extremities (right hip due to pain) and strength 5/5 throughout Skin no rashes, warm and dry Neurologic patellar DTR's 2+ bilat, sensation intact and PERRL, EOMI, accommodation nl, no face palsy, no dysarthria Psychiatric A+Ox3, euthymic affect Lymphatic no cervical or axillary lymphadenopathy Discharge Data Allergies Allergy/AdvReac Type Severity Reaction Status Date / Time ampicillin Allergy Unknown . Verified 02/17/20 22:11 Fish Containing Products Allergy Unknown Unknown Verified 02/17/20 22:11 nut - unspecified Allergy Unknown . Verified 02/17/20 22:11 shellfish derived Allergy Unknown HIVES Verified 02/17/20 22:11 fish derived Allergy Verified 02/18/20 14:06 latex Allergy Verified 02/17/20 22:11 IMITATION CHEESE Allergy Severe ANAPHYLAXIS Uncoded 02/17/20 22:11 Seafood Allergy Severe Anaphylaxis Uncoded 02/17/20 22:11 Consultations 02/17/20 23:48 Consult Case Management - Discharge Planning Routine 02/18/20 00:00 Consult Orthopedic Surgery Stat ED Decision to Admit Stat 02/18/20 01:07 Consult Anesthesiology Routine Consult Case Management - Discharge Planning Routine Consult Orthopedic Surgery Routine 02/18/20 17:46 Consult Case Management - Discharge Planning Routine Procedures Performed Operation Date: 02/18/20 07:50 Actual Procedures p Right Cemented Bipolar Hemiarthroplasty(Right) - Horace Shoemaker MD Ordered Studies 02/17/20 22:36 CT pelvis wo con Stat Hospital Course (1) Hypotension: SBP in the 80's morning of 02/19, felt weak and light headed eating and drinking well, encouraged her to continue this gave NSS 500mL bolus BP elevated for past 48 hours, hypotension resolved add back home regimen of BP medications (2) Acute blood loss as cause of postoperative anemia: hb trending up to 12 on 02/20 no signs of active bleeding (3) Hip fracture, right: osteoporotic s/p fall. had left hip fracture within the last 6 months also requiring ORIF. appreciate ortho consult and assistance. s/p ORIF 02/17, today is POD 5 pain control DVT proph - Xarelto PT, OT. will need rehab, CM looking into [facility] 25-OH vit D is 31.1, will start supplementation 50,000 units given weekly for 7 more weeks then resume daily supplementation (4) HTN (hypertension): resume Lopressor at 50mg BID resume Norvasc resume Lasix (5) Chronic kidney disease, stage 3a: baseline CrCl is 40s/50s Cr is at baseline (6) Atrial fibrillation: permanent typically on metoprolol bid for rate control and xarelto for anticoagulation resume Lopressor 50mg BID, resume Xarelto (7) Dementia: cont namenda and aricept (8) UTI (urinary tract infection): urine cx 02/12 with pansensitive coag neg staph stop cipro change to keflex 500 BID, completed full course of treatment, no antibiotics needed on discharge (9) DVT prophylaxis: xarelto scds PT, OT d/c to rehab at [facility] (10) Herpes labialis: Valtrex 2000mg q12 x one day since the symptoms just started symptoms much improved with treatment Total Time Total Time Spent Total Time Spent (In Minutes): 31 minutes Total Time Includes: Examination of the Patient, Discharge Planning, Medication Reconciliation and Communication With Other Providers Discharge Plan Discharge Items Patient Disposition: Transfer Detention Fac Reason For Visit: HIP FRACTURE Discharge Diagnosis: Right Hip Arthroplasty for Fracture Condition on Discharge: Good Goals: improve strength and mobility treat vitamin D deficiency Activity: Per Instructions section Activity Comment: Activity as tolerated obeying hip precautions. Weightbearing: Full weightbearing Weightbearing Comment: Weightbear as tolerated obeying hip precautions Non-emergency contact: Primary Care Provider and Surgeon Call non-emergency contact if: you have any medication questions, your symptoms worsen, your pain is not controlled and you have a fever Follow-up/Referrals: Horace Shoemaker MD [Physician] - (Orthopedic follow-up 2-3 weeks from surgery date.) Joanne Blas [Primary Care Provider] - Diet: Heart Healthy Addtl Attending Provider Instructions: ACTIVITY RECOMMENDATIONS: Physical Therapy: * Aggressive physical therapy is not usually needed. You will learn to take care of yourself safely and walk. * Follow the "Hip Precautions Instructions." * In some cases, the social professionals at the hospital will arrange to have a therapist come to your house for the first couple of weeks to help you learn these skills. * You need to practice on your own or with the help of a family member as needed. * When you learn these skills, most of the therapy can be done on your own. Home Exercise: * You were shown a series of exercises in the hospital. Do these exercises three to four times each day including the exercises you were shown in physical therapy. Walking: * Get up and walk several times each day. For the first four weeks, try not to stand or walk for more than one hour at a time. If you do stand or walk for more than one hour, you will not hurt anything, but your leg will likely swell. * As you feel comfortable, you may change from the walker or crutches to a cane and then to independent walking. "VERY IMPORTANT TO READ AND REVIEW" Pain: * The immediate post-operative period after hip replacement surgery is often quite painful. * You are given a prescription for pain medicine. You should take it, as directed, when you need it, especially before physical therapy and before going to bed. Pain that interferes with sleep is very common and can last several months. * You will likely need pain medicine for the first two to four weeks. It will not stop all of the pain. The pain will lessen and as you feel better, you may change to milder pain medicine such as Tylenol. * The most common side effects of pain medicine are nausea and constipation, so don't take more than you need. SPECIAL CARE INSTRUCTIONS: TEDs/Elastic Stockings: * The white elastic stockings help limit swelling and prevent blood clots from forming in your legs. The more you wear them, the more they work. * Wear them for six weeks. Prevention of Infection: * Take antibiotics one hour before any dental cleaning, dental work, urological procedure, gastrointestinal procedure or any invasive surgery in order to prevent your new joint from getting infected. * You may get the antibiotics from the doctor performing the procedure or you may call our office at before and we will call in a prescription to the pharmacy of your choice. Things to Watch For: * Drainage from the incision site that occurs more than one week after your surgery. * Severely increased leg pain or swelling. * Increased redness at the incision site. * Fever above 102 degrees Fahrenheit. * Unusual chest pain or shortness of breath. * Unusual pain or burning with urination. Call [facility] at with any of the above problems or if you have any questions about your medicines or recovery. FOLLOW UP VISIT: Make an appointment to see your doctor for approximately two weeks after surgery for a progress check and staple removal by calling the office at . Addtl Dining Room Host Provider Instructions: Vitamin D deficiency: value was 31, with osteoporotic hip fracture, need to give more supplementation received 50,000 units once in hospital continue with 50,000 units once a week on Mondays for 7 weeks Pending Studies at Discharge: No Stand-Alone Forms: My [facility] [employer] Skilled Items Patient informed of condition?: Yes DNR: Yes Discharge Level of Care: Skilled Communicable Disease: No Discharge Prognosis: Stable Lines: None Urinary Catheter: No Medications and DC Order Prescriptions: New ergocalciferol (vitamin D2) [Vitamin D2] 1,250 mcg (50,000 unit) capsule 50,000 units PO .weekly Qty: 7 RF: 0 Continued memantine 10 mg tablet 10 mg PO BID 30 Days Qty: 60 RF: 0 quetiapine 25 mg tablet 12.5 mg PO HS RF: 0 amlodipine 5 mg tablet 5 mg PO QAM RF: 0 Xarelto 15 mg tablet 15 mg PO HS RF: 0 epinephrine 0.3 mg/0.3 mL auto-injector 0.3 ml subcut DIRECTED PRN (Reason: Anaphylaxis) RF: 0 fluoxetine 20 mg tablet 20 mg PO QAM RF: 0 furosemide 20 mg tablet 20 mg PO QAM RF: 0 metoprolol tartrate [Lopressor] 50 mg tablet 50 mg PO BID RF: 0 famotidine 20 mg tablet 20 mg PO QAM RF: 0 loratadine 10 mg Tablet 10 mg PO QAM RF: 0 risedronate 150 mg tablet 150 mg PO MONTHLY RF: 0 donepezil [Aricept] 10 mg tablet 10 mg PO HS RF: 0 calcium carbonate-vitamin D3 [Calcium 500 + D] 500 mg(1,250mg) -200 unit Tablet 1 tab PO QAM RF: 0 acetaminophen [Tylenol] 325 mg Tablet 0 mg PO DIRECTED PRN (Reason: Pain) RF: 0 Discontinued sulfamethoxazole-trimethoprim 800-160 mg tablet 1 tab PO BID RF: 0 Discharge Orders: Discharge Order (Routine); Ordered 02/23/20 Ordered By: Tito Sommer Admission Data Admit Date/Time: 02/18/20 01:02 Attending Provider: Tito Sommer Admit Provider: Dennis Disla Primary Care Provider: Joanne Blas Other Providers: Shazia oS ; Kurt Zuleta ; Brandon Whalen ; Betty Cam ; Jacqueline Holguin ; Jeni Cedeño ; Kathryn Walker ; Lacey Huynh ; Gwen Man ; Michael Masterson ; Dc Solis ; Luis King ; Hemanth Mckeon ; Saundra Mckeon ; Mickey Lopez ; Aide Patino ; iYmi Guadalupe ; Lisandro Gray ; Juan José Carrera ; Yolanda Sutton ; Vinay Dsouza ; Radha Kyle ; Lisseth Dsouza ; Cholo Francis ; Linda Dey ; Kingston Higginbotham ; Lexi Robles ; Rhoda Workman ; Linda Pena ; Paty Sommer ; John Shaw ; Cassie Rincon ; Fadia Castañeda ; Zehra Tariq ; Nasrin Renee A ; Sanford Renee V ; Tyler Iraheta ; Jeni Piedra ; Wale Martinez ; Kvng Parmar ; Zoraida Gonzalez ; Jeannine Hickman ; Sanford Mobley ; Darrel Sutton ; Tito Chatman ; Fátima Caceres ; Zehra Khan ; Luis Alvarenga ; Dian Recio ; Horace Fortune ; Abilio Carrera ; Mirtha Andrade ; Grzegorz Frost ; Danielle Lord ; Elder Dee ; Alton Dale ; Lisseth Ewing ; Mallory Mcginnis ; Evelio Henry ; Raad Bacon ; Robbie Villarreal ; Alexei Allen ; Kenyetta Sandra ; Horace Shoemaker ; Rick Whalen ; Mickey Ray ; Abilio Hansen ; Mickey Santa ; Nemesio Parry V ; Rhina Dennison ; Lupis Crowell ; [facility] Coding Level of Care Code D/C Day Management >30 mins Diagnoses Hypotension I95.9 Acute blood loss as cause of postoperative anemia D62 Hip fracture, right S72.001D Encounter type: subsequent encounter Fracture type: closed Fracture healing: with routine healing HTN (hypertension) I10 Hypertension type: essential hypertension Chronic kidney disease, stage 3a N18.3 Atrial fibrillation I48.21 Atrial fibrillation type: permanent Dementia F03.90 Dementia type: unspecified type Dementia behavioral disturbance: without behavioral disturbance UTI (urinary tract infection) N30.00 Urinary tract infection type: acute cystitis Hematuria presence: without hematuria DVT prophylaxis Z29.9 Herpes labialis B00.1
--- NOTE | 2020-02-23 09:29 | Progress Notes ---
DATE: 02/23/2020 SUBJECTIVE: An 84-year-old female, now 5 days out from a right cemented bipolar hip arthroplasty for fracture. She is doing well. Pain is getting better daily. She is really just waiting for [facility] test to go to half-way facility. OBJECTIVE: VITAL SIGNS: Temperature 36.8. Vital signs stable. GENERAL: Physical examination shows a pleasant, elderly, frail female. She is lying in bed, looks comfortable. EXTREMITIES: Examination of the right hip reveals the dressing to be clean, dry and intact. Leg lengths were equal. Hip is located. She is neurologically intact. ASSESSMENT: An 84-year-old female postop day 5 from a right cemented bipolar hip arthroplasty, doing well. We are just waiting for placement. Pain seems to be getting better daily. PLAN: 1. DVT prophylaxis include thigh-high TEDs, SCDs, and Xarelto. 2. PT/OT, weightbear as tolerated. Right total hip protocol. 3. Pain control, doing well with current pain regimen. 4. Disposition: She is orthopedically okay for discharge any time. I need to see her back 2 weeks out from surgery date. Any orthopedic questions can be directed to me at [phone].
== END 2020-02-23 11:22 | DRG 470 ==
LOC: ED 21:50 → 3E 02-18 01:02 → SUATTDRO 02-18 01:02 → 3E 02-18 01:58